=== PATIENT | male | born 1940 | race Caucasian/White ===

== ENCOUNTER 2016-10-02 07:20 | Day surgery (SDC) | payer OTHER, BC ==
[2016-09-30 14:05] VITALS: BMI 29.2
[2016-10-02 07:37] LABS: BASOPHIL 0.7 % (0-2.0); EOSINOPHIL 2.1 % (0-4.5); MCH 30.6 pg (25.7-33.7); MCHC 33.3 g/dl (32.0-35.9); MEAN CELL VOLUME 91.7 fl (80-96); MEAN PLT VOLUME 8.1 fl (7.5-11.1); NEUTROPHILS 73.9 % (42.8-82.8); PLATELET COUNT 153 K/MM3 (134-434); RDW 14.8 % (11.9-15.9); WHITE BLOOD COUNT 9.6 K/mm3 (4.0-10.0)
[2016-10-02 07:48] VITALS: TEMP 97.7
[2016-10-02 07:52] LABS: INR 1.01 (0.82-1.09); PROTHROMBIN TIME (PATIENT) 11.1 SEC (9.98-11.88)
[2016-10-02 14:03] VITALS: BP 147/80; PULSE 74
--- NOTE | 2016-10-03 17:13 | PATH ---
Surgical Pathology Report Patient Name: SANTI ORTEGA [facility]. Rec. #: [id number] /Age/Gender: 1940 (Age: 76) / M Account: [id number] Location: Taken: 10/02/2016 Received: 10/02/2016 Reported: 10/03/2016 Physicians: Eugene Osborne M.D. Specimen(s) Received LIVER BIOPSY Clinical History Hepatic steatosis, autoimmune hepatitis, lung cancer Final Diagnosis LIVER, BIOPSY: CHRONIC HEPATITIS CONSISTENT WITH AUTOIMMUNE HEPATITIS, MINIMAL ACTIVITY (GRADE 1 OF 4), AND PORTAL FIBROSIS (STAGE I OF 4). MILD MACROVESICULAR STEATOSIS PRESENT. TRICHROME STAIN HIGHLIGHTS AREAS OF PORTAL FIBROSIS. IRON STAIN IS NEGATIVE FOR SIDEROSIS. NEGATIVE FOR CHOLESTASIS, CHOLANGITIS/BILE DUCT INJURY, GRANULOMAS, OR MALIGNANCY. Comment: Sections reveal liver tissue with portal tracts containing an inflammatory infiltrate consisting of lymphocytes with scattered plasma cells and rare eosinophils. No definite interface hepatitis is identified. No lobular inflammation is identified. Additional clinical history provided by Dr. Haney includes a moderate to strong positive anti-smooth muscle antibody (41 with normal range 0-19), with a normal liver-kidney microsomal antibody, antimitochondrial antibody, LASHAUN, and serologic studies for hepatitis A, B, and C. Electronically Signed José Luis Dickerson M.D. Gross Description Received in formalin labeled "liver biopsy," are 4 walker, cylindrical portions of soft tissue ranging from 0.8-1.4 cm in length and averaging 0.1 cm in diameter. The specimens are submitted in toto in one cassette. 10/02/201610/02/2016
== END 2016-10-02 14:00 | disposition home or self-care (01) ==
LOC: JRADIR 07:20
PROVIDERS: ATTEND Radiology Diagnostic Radiology
PROC: BF25ZZZ Computerized Tomography (CT Scan) of Liver (ICD-10-PCS; principal; 2016-10-02)
PROC: 0FB03ZX Excision of Liver, Percutaneous Approach, Diagnostic (ICD-10-PCS; 2016-10-02)
DX: K73.8 Other chronic hepatitis, not elsewhere classified (principal); K74.0 Hepatic fibrosis; K76.0 Fatty (change of) liver, not elsewhere classified
CPT/HCPCS: 36415; 47000; 71010-TC; 85025; 85610; 88307-TC; 88313-TC

== ENCOUNTER 2017-07-21 11:53 | Inpatient (IN) | payer OTHER, BC ==
--- NOTE | 2017-07-21 13:22 | PDOC ---
History of Present Illness - General Chief Complaint: Wound Stated Complaint: LT TOE WOUND Time Seen by Provider: 07/21/17 13:22 - History of Present Illness Initial Comments: 07/21/17 13:40 Mr. Mantilla is a 77 yo male w/ pmh of HTN, HLD, prediabetes, COPD, autoimmune hepatits, AAA (repaired), and aortic root aneurysm who presents complaining of 4 day history of pain, warmth, and swelling of the 2nd toe on his left foot. Past History - Past Medical History Allergies/Adverse Reactions: Allergies Allergy/AdvReac Type Severity Reaction Status Date / Time Penicillins Allergy Severe "throat Verified 07/21/17 11:55 swells" sulfamethoxazole AdvReac Severe Verified 07/21/17 11:55 [From Bactrim] trimethoprim [From Bactrim] AdvReac Severe Verified 07/21/17 11:55 Home Medications: Ambulatory Orders Allopurinol [Zyloprim -] 300 mg PO DAILY 11/18/13 Amlodipine Besylate [Norvasc -] 5 mg PO DAILY 11/18/13 Aspirin Coated [Ecotrin -] 81 mg PO DAILY 11/18/13 Atorvastatin Ca [Lipitor] 10 mg PO ASDIR 11/18/13 Budesonide/Formeterol Fumarate [SYMBICORT 160/4.5mcg -] 2 inh PO BID 11/18/13 Captopril 100 mg PO BID 11/18/13 Folic Acid - 1 mg PO DAILY 11/18/13 Propranolol HCl [Inderal LA] 80 mg PO HS 11/18/13 Ranitidine [Zantac -] 300 mg PO HS 11/18/13 Tiotropium [place] [Spiriva] 1 inh PO DAILY 11/18/13 Valsartan [Diovan] 160 mg PO DAILY 11/18/13 [place]-3 Fatty Acids/Fish Oil [Fish Oil 1,000 mg Softgel] 1 each PO DAILY Psyllium Husk/Calcium Carb [Metamucil Plus Calcium Capsule] 5 each PO DAILY 10/09 Anemia: No Cancer: Yes (LUNGS) Cardiac Disorders: No CVA: No COPD: Yes (EMPHYSEMA) CHF: Yes (AORTIC ANUERYSM, BEING MONITORED) Dementia: No Diabetes: No GI Disorders: No Disorders: No HTN: Yes Hypercholesterolemia: No Liver Disease: Yes (AUTOIMMUNE HEPATITIS) Seizures: No Thyroid Disease: No - Surgical History Abdominal Surgery: Yes (HERNIA X 2, AAA REPAIR 12 YEARS AGO) Appendectomy: No Cardiac Surgery: No Cholecystectomy: No Lung Surgery: Yes (LEFT LUNG LOBECTOMY) Neurologic Surgery: No Orthopedic Surgery: No - Suicide/Smoking/Psychosocial Hx Smoking History: Former smoker Have you smoked in the past 12 months: No If you are a former smoker, when did you quit?: 2003 Information on smoking cessation initiated: No Hx Alcohol Use: Yes ([facility]) Drug/Substance Use Hx: No Substance Use Type: Alcohol Hx Substance Use Treatment: No Review of Systems - Review of Systems Comments:: 07/21/17 14:48 GENERAL/CONSTITUTIONAL: +Chills as described. No weakness. HEAD, EYES, EARS, NOSE AND THROAT: No change in vision. No ear pain or discharge. No sore throat. CARDIOVASCULAR: No chest pain or shortness of breath RESPIRATORY: No cough, wheezing, or hemoptysis. GASTROINTESTINAL: No nausea, vomiting, diarrhea or constipation. GENITOURINARY: No dysuria, frequency, or change in urination. MUSCULOSKELETAL: +Left foot pain at wound site. Inability to move left toe. Warmth and redness. SKIN: No rash NEUROLOGIC: No headache, vertigo, loss of consciousness, or change in strength/ sensation. ENDOCRINE: No increased thirst. No abnormal weight change HEMATOLOGIC/LYMPHATIC: No anemia, easy bleeding, or history of blood clots. ALLERGIC/IMMUNOLOGIC: No hives or skin allergy. *Physical Exam - Vital Signs Last Vital Signs Temp Pulse Resp BP Pulse Ox 98.1 F 80 18 138/79 100 07/21/17 11:55 07/21/17 11:55 07/21/17 11:55 07/21/17 11:55 07/21/17 11:55 - Physical Exam Comments: 07/21/17 14:49 GENERAL: Awake, alert, and fully oriented, in no acute distress HEAD: No signs of trauma, normocephalic, atraumatic EYES: PERRLA, EOMI, sclera anicteric, conjunctiva clear ENT: Auricles normal inspection, hearing grossly normal, nares patent, oropharynx clear without exudates. Moist mucosa NECK: Normal ROM, supple, no lymphadenopathy, JVD, or masses LUNGS: No distress, speaks full sentences, clear to auscultation bilaterally HEART: Regular rate and rhythm, normal S1 and S2, no murmurs, rubs or gallops, peripheral pulses normal and equal bilaterally. ABDOMEN: Soft, nontender, normoactive bowel sounds. No guarding, no rebound. No masses EXTREMITIES: +Abscess /wound noted to dorsum of left 2nd toe. Entire dorsum of foot erythematous, warm, swollen. Otherwise normal inspection, Normal range of motion. No clubbing or cyanosis. NEUROLOGICAL: Cranial nerves II through XII grossly intact. Normal speech, normal gait, no focal sensorimotor deficits SKIN: Warm, Dry, normal turgor, no rashes or lesions noted. ED Treatment Course - LABORATORY CBC & Chemistry Diagram: 07/21/17 14:10 07/21/17 14:10 Medical Decision Making - Medical Decision Making 07/21/17 14:42 Mr. Mantilla is a 77 yo male w/ pmh as described who presents for evaluation of signifcant 2nd left toe and foot infection. Labs concerning for WBC of 14.0, podiatry and ID consulted. Patient admitted to primary physician for further evaluation and care of infection. *DC/Admit/Observation/Transfer Diagnosis at time of Disposition: Cellulitis Qualifiers: Site of cellulitis: extremity Site of cellulitis of extremity: lower extremity Laterality: left Qualified Code(s): L03.116 - Cellulitis of left lower limb - Discharge Dispostion Decision to Admit order: Yes - Referrals - Patient Instructions - Post Discharge Activity
--- NOTE | 2017-07-21 13:43 | PDOC ---
Attending Attestation - Resident Resident Name: Ramirez Rich - HPI HPI: 07/21/17 15:46 Pt presents to the ED complaining of wound to the dorsum of his L second toe. Denies fever, nausea or vomiting. Denies severe pain. History of "pre diabetes". Wound has been present and worsening for the past week. - Physicial Exam PE: 07/21/17 15:48 agree with resident exam. Patient has erythema to the dorsum of the entire foot , along with a wound with purulent drainage at the pip joint. Minimal pain with passive ROM of the toe. - Medical Decision Making 07/21/17 15:50 PT presents to the ED with severe cellulitis of the foot. Will treat with IV clinda and admit to medicine. Will consult patient's senior technical manager and perform CT of the foot to evaluate for deep space infection.
[2017-07-21] MEDS ORDERED: CLINDAMYCIN 600MG PREMIX IVPB 600 MG/50 ML BAG IVPB ONE ×2 (13:51→14:06)
[2017-07-21 14:32] LABS: BASO % 0.7 % (0-2.0); EOS % 0.2 % (0-4.5); HEMATOCRIT 38.5 % (35.4-49); HEMOGLOBIN 13.2 GM/dL (11.7-16.9); LYMPH % 6.5 % (8-40); MCH 31.8 pg (25.7-33.7); MCHC 34.2 g/dl (32.0-35.9); MEAN CELL VOLUME 93.2 fl (80-96); MONO % 11.5 % (3.8-10.2); NEUT % 81.1 % (42.8-82.8); PLATELET COUNT 159 K/MM3 (134-434); RBC 4.14 M/mm3 (4.00-5.60); RDW 14.3 % (11.9-15.9)
[2017-07-21 14:54] LABS: ALBUMIN 2.9 g/dl (3.4-5.0); ANION GAP 9 (8-16); BLOOD UREA NITROGEN 12 mg/dL (7-18); CALCIUM 8.5 mg/dL (8.5-10.1); CHLORIDE 100 mmol/L (98-107); CO2 29 mmol/L (21-32); CREATININE 0.9 mg/dL (0.7-1.3); GLUCOSE,RANDOM 162 mg/dL (74-106); POTASSIUM 3.3 mmol/L (3.5-5.1); SGOT/AST 16 U/L (15-37); SGPT/ALT 32 U/L (12-78); SODIUM 138 mmol/L (136-145)
[2017-07-21 14:56] LABS: ALK PHOS 70 U/L (45-117); BILIRUBIN,TOTAL 1.1 mg/dL (0.2-1.0); TOT PROT 5.8 g/dl (6.4-8.2)
--- NOTE | 2017-07-21 15:59 | PN ---
Progress Note (short form) - Note Progress Note: ID Consult dictated Cellulitis L foot R/O L 2nd toe abscess/ osteomyelitis Major PCN allergy ? Sulfa allergy Await c/s Surgical evaluation CRP ESR MRI foot [facility] vancomycin/aztreonam/flagyl
[2017-07-21] MEDS ORDERED: POTASSIUM CHLORIDE TABS 20 MEQ TABLET.ER (FP) PO ONE (16:09)
--- NOTE | 2017-07-21 16:13 | HP ---
Admitting History and Physical - Primary Care Physician PCP: Saadia Jones - Admission History of Present Illness: Mr. Mantilla is a 77 yo male w/ pmh of HTN, HLD, prediabetes, COPD, autoimmune hepatits, AAA (repaired), and aortic root aneurysm who presents complaining of 4 day history of pain, warmth, and swelling of the 2nd toe on his left foot.per patient he has been soaking his second toe in warm water at home and he reports no fever at home in ER found to have WBC 14.0 and got iv clindamycin History Source: Patient - Past Medical History Cardiovascular: Yes: HTN, Hyperlipdemia Pulmonary: Yes: COPD Musculoskeletal: Yes: Osteoarthritis - Past Surgical History Past Surgical History: Yes: AAA Repair, Hernia Repair - Smoking History Smoking history: Former smoker Have you smoked in the past 12 months: No If you are a former smoker, when did you quit?: 2003 - Alcohol/Substance Use Hx Alcohol Use: Yes (OCC) - Social History ADL: Independent History of Recent Travel: No Home Medications - Allergies Allergies/Adverse Reactions: Allergies Allergy/AdvReac Type Severity Reaction Status Date / Time Penicillins Allergy Severe "throat Verified 07/21/17 11:55 swells" sulfamethoxazole AdvReac Severe Verified 07/21/17 11:55 [From Bactrim] trimethoprim [From Bactrim] AdvReac Severe Verified 07/21/17 11:55 - Home Medications Home Medications: Ambulatory Orders Allopurinol [Zyloprim -] 300 mg PO DAILY 11/18/13 Amlodipine Besylate [Norvasc -] 5 mg PO DAILY 11/18/13 Aspirin Coated [Ecotrin -] 81 mg PO DAILY 11/18/13 Atorvastatin Ca [Lipitor] 10 mg PO Q2D 11/18/13 Captopril 100 mg PO BID 11/18/13 Folic Acid - 1 mg PO DAILY 11/18/13 Propranolol HCl [Inderal LA] 80 mg PO HS 11/18/13 Ranitidine [Zantac -] 300 mg PO HS 11/18/13 Valsartan [Diovan] 160 mg PO BID 11/18/13 [place]-3 Fatty Acids/Fish Oil [Fish Oil 1,000 mg Softgel] 1 each PO DAILY Psyllium Husk/Calcium Carb [Metamucil Plus Calcium Capsule] 5 each PO DAILY 10/09 Budesonide [ENTOCORT EC (Nf) -] 9 mg PO DAILY 07/21/17 Umeclidinium Brm/Vilanterol Tr [Anoro Ellipta 62.5-25 Mcg INH] 1 each IH DAILY 07/21/17 Physical Examination Vital Signs: Vital Signs Temperature 98.1 F 07/21/17 11:55 Pulse Rate 80 07/21/17 11:55 Respiratory Rate 18 07/21/17 11:55 Blood Pressure 138/79 07/21/17 11:55 O2 Sat by Pulse Oximetry (%) 97 07/21/17 14:44 Constitutional: Yes: Calm Neck: Yes: Trachea Midline Cardiovascular: Yes: Regular Rate and Rhythm, S1, S2 Respiratory: Yes: CTA Bilaterally Gastrointestinal: Yes: Normal Bowel Sounds, Soft Extremities: Yes: Other (left foot erythematous warm tender to touch second toe macerated skin swollen) Edema: Yes Labs: CBC, BMP 07/21/17 14:10 07/21/17 14:10 Imaging - Results Cat Scan: Pending Assessment/Plan left foot /toe cellutlits pcn allergy iv abx per ID ctscan of LE dvt ppx esr,crp podiatry hypokalemia replete and recheck prediabetes check hgba1c HLD statin check lipid profile HTN Norvasc and diovan
[2017-07-21] MEDS: VANCOMYCIN 1 GM PREMIX - 1 GM/200 ML BAG IVPB SCH (16:25)
--- NOTE | 2017-07-21 17:08 | CONS ---
INFECTIOUS DISEASE CONSULTATION DATE OF CONSULTATION: 07/21/2017 The patient is a 77-year-old male who is evaluated for left foot infection. The patient states that he was well until approximately 3 days prior to admission. He was golfing. He states he has a chronic left 2nd toe hammertoe. He believes that the toe may have become irritated by repetitive movement in his golf shoes. He noted swelling and erythema of the left 2nd toe. He developed worsening pain, erythema, and swelling of the left toe and subsequently the entire left foot. He developed erythema, tracking to the dorsum of the foot and distal left lower extremity. He denies any associated fever or chills. He did not notice any purulent wound drainage. Patient states that he is a diet-controlled diabetic and denies prior history of foot infections. PAST MEDICAL HISTORY: Positive for COPD, a history of lung cancer status post left lung lobectomy, hypertension, hyperlipidemia, diet-controlled diabetes, auto-immune hepatitis. PAST SURGICAL HISTORY: Status post abdominal aortic aneurysm repair and aortic root repair. ALLERGIES: PENICILLIN and BACTRIM. With respect to PENICILLIN, reports developing tongue swelling many years ago. With respect to BACTRIM, he developed severe hyponatremia approximately 4 years ago after taking BACTRIM. No history of rash or anaphylaxis. MEDICATIONS: Include Zyloprim, Norvasc, Ecotrin, Lipitor, Symbicort, folic acid, Inderal, Zantac, Spiriva, Diovan. SOCIAL HISTORY: He is a former smoker, stopped in 2003. Lives at home with his significant other. SYSTEMS REVIEW: Neurologic: No loss of consciousness, seizure activity, focal weakness. Cardiac: Negative chest pain or palpitations. Respiratory: Negative cough or sputum production. Gastrointestinal: Negative vomiting or diarrhea. Genitourinary: Negative for urinary tract infection. LABORATORY DATA: White count 14.0; neutrophils 81, lymphocytes 6, monocytes 11; hematocrit 38.5; platelet count 159. Chemistries: BUN 12, creatinine 0.9, sodium 138, total bilirubin 1.1, alkaline phosphatase 70, AST 16. Blood and wound cultures are pending. CAT scan of the left foot has been ordered. PHYSICAL EXAMINATION: General: He is awake and alert on stretcher in the emergency room. He is in no acute distress. Vital Signs: Temperature 98.1; blood pressure 138/79; pulse 80, regular; respirations 18 per minute. HEENT: Sclerae are anicteric. Heart: Sounds S1, S2. Lungs: Clear. Abdomen: Obese, soft, nontender. Left Foot: There is gross swelling and deformity of the left 2nd toe with an ulceration present over the dorsal aspect of the toe. The toe is red and warm. There is erythema and swelling extending to the left great toe, dorsum of the foot, and proximal left lower extremity. IMPRESSION: 1. Cellulitis of the left foot. 2. Rule out left 2nd toe abscess/osteomyelitis. 3. Major PENICILLIN allergy. 4. Questionable SULFA allergy. Await culture results. Surgical evaluation. Obtain sedimentation rate, C-reactive protein, MRI of the foot to rule out abscess and/or osteomyelitis. Empiric antibiotic coverage in this patient with a major PENICILLIN allergy with vancomycin, Azactam, and Flagyl. Thank you for the kind referral. ZANDRA PURCELL M.D. [id number]
[2017-07-21] MEDS: AZTREONAM 1 GM in DEXTROSE 5%-WATER - 50 ML IVPB SCH (21:40)
[2017-07-21] MEDS ORDERED: HEPARIN NA (PORCINE) 5,000 UNITS/ML 1ML VIAL ONE (22:28)
[2017-07-21] MEDS: ATORVASTATIN CA 10 MG TABLET (FP) PO SCH (22:35)
[2017-07-21] MEDS: HEPARIN NA (PORCINE) 5,000 UNITS/ML 1ML VIAL SQ SCH (22:43)
[2017-07-22] MEDS: AZTREONAM 1 GM in DEXTROSE 5%-WATER - 50 ML IVPB SCH ×2 (02:34→10:22)
[2017-07-22] MEDS ORDERED: VANCOMYCIN 1 GRAM (PRE-DOCKED) 1,000 MG/250 ML BAG IVPB ONE (02:37)
[2017-07-22] MEDS: VANCOMYCIN 1 GM PREMIX - 1 GM/200 ML BAG IVPB SCH ×2 (04:07→11:01)
[2017-07-22 08:35] LABS: BASO % 0.3 % (0-2.0); EOS % 0.1 % (0-4.5); HEMATOCRIT 36.3 % (35.4-49); HEMOGLOBIN 12.5 GM/dL (11.7-16.9); LYMPH % 6.7 % (8-40); MCHC 34.5 g/dl (32.0-35.9); MEAN CELL VOLUME 92.9 fl (80-96); MEAN PLT VOLUME 8.4 fl (7.5-11.1); MONO % 10.3 % (3.8-10.2); NEUT % 82.6 % (42.8-82.8); PLATELET COUNT 157 K/MM3 (134-434); RDW 14.4 % (11.9-15.9); WHITE BLOOD COUNT 12.7 K/mm3 (4.0-10.0)
[2017-07-22 09:24] LABS: CHLORIDE 100 mmol/L (98-107); POTASSIUM 3.2 mmol/L (3.5-5.1); SODIUM 135 mmol/L (136-145)
--- NOTE | 2017-07-22 09:48 | EKG ---
Test Reason : Blood Pressure : / mmHG Vent. Rate : 071 BPM Atrial Rate : 071 BPM P-R Int : 152 ms QRS Dur : 132 ms QT Int : 414 ms P-R-T Axes : 022 -58 000 degrees QTc Int : 449 ms POOR DATA QUALITY, INTERPRETATION MAY BE ADVERSELY AFFECTED NORMAL SINUS RHYTHM RIGHT BUNDLE BRANCH BLOCK LEFT ANTERIOR FASCICULAR BLOCK BIFASCICULAR BLOCK ABNORMAL ECG WHEN COMPARED WITH ECG OF 18-NOV-2013 15:26, NO SIGNIFICANT CHANGE WAS FOUND Confirmed by JOSE CHAMBERLAIN, ISHAN ([id number]) on 07/22/2017 9:47:53 AM Referred By: Confirmed By:ISHAN GARCIA MD
[2017-07-22] MEDS ORDERED: amLODIPine BESYLATE 10 MG TABLET (FP) PO SCH (10:00)
[2017-07-22] MEDS ORDERED: VALSARTAN 160 MG TABLET (UD) PO SCH (10:00)
[2017-07-22 10:10] LABS: CHOLESTEROL 111 mg/dL (50-200); HDL CHOLESTEROL 40 mg/dL (40-60); TRIGLYCERIDES 73 mg/dL (35-160)
[2017-07-22 10:18] LABS: ALBUMIN 2.5 g/dl (3.4-5.0); ALK PHOS 75 U/L (45-117); ANION GAP 10 (8-16); BILIRUBIN,TOTAL 0.7 mg/dL (0.2-1.0); BLOOD UREA NITROGEN 16 mg/dL (7-18); CALCIUM 7.8 mg/dL (8.5-10.1); CO2 25 mmol/L (21-32); CREATININE 0.9 mg/dL (0.7-1.3); GLUCOSE,RANDOM 183 mg/dL (74-106); MAGNESIUM 1.8 mg/dL (1.8-2.4); PHOSPHOROUS 3.3 mg/dL (2.5-4.9); SGOT/AST 14 U/L (15-37); SGPT/ALT 26 U/L (12-78); TOT PROT 5.2 g/dl (6.4-8.2)
--- NOTE | 2017-07-22 10:19 | PN ---
Progress Note, Physician - Current Medication List Current Medications: Active Medications Allopurinol (Zyloprim -) 300 mg PO DAILY [facility] Amlodipine Besylate (Norvasc -) 10 mg PO DAILY [facility] Atorvastatin Calcium (Lipitor -) 10 mg PO HS [facility] Last Admin: 07/21/17 22:35 Dose: 10 mg Heparin Sodium (Porcine) (Heparin -) 5,000 unit SQ BID [facility] Last Admin: 07/21/17 22:43 Dose: 5,000 unit Vancomycin HCl (Vancomycin 1 Gm Premix -) 1 gm in 200 mls @ 133.333 mls/hr IVPB Q12H [facility]; Protocol Last Admin: 07/22/17 04:07 Dose: 133.333 mls/hr Aztreonam 1 gm/ Dextrose 50 mls @ 100 mls/hr IVPB Q8H-IV [facility]; Protocol Last Admin: 07/22/17 02:34 Dose: 100 mls/hr Metronidazole (Flagyl 500mg Premixed Ivpb -) 500 mg in 100 mls @ 100 mls/hr IVPB Q8H-IV [facility] Last Admin: 07/22/17 02:19 Dose: 100 mls/hr Valsartan (Diovan -) 160 mg PO DAILY [facility] - Objective Vital Signs: Vital Signs Temperature 98.5 F 07/22/17 06:31 Pulse Rate 74 07/22/17 06:31 Respiratory Rate 18 07/22/17 06:31 Blood Pressure 139/68 07/22/17 06:31 O2 Sat by Pulse Oximetry (%) 100 07/22/17 03:05 Cardiovascular: Yes: S1, S2 Respiratory: Yes: Regular, CTA Bilaterally Gastrointestinal: Yes: Normal Bowel Sounds, Soft Extremities: Yes: Erythema Edema: Yes Labs: CBC, BMP 07/22/17 06:27 07/22/17 06:27 Problem List - Problems (1) Cellulitis Assessment/Plan: -with ulcer -vascular -mri -ct noted--iv abx -id on case Code(s): L03.90 - CELLULITIS, UNSPECIFIED Qualifiers: Site of cellulitis: extremity Site of cellulitis of extremity: lower extremity Laterality: left Qualified Code(s): L03.116 - Cellulitis of left lower limb (2) Edema Assessment/Plan: -dc norvasc -lasix x 1 -duplex Code(s): R60.9 - EDEMA, UNSPECIFIED (3) COPD (chronic obstructive pulmonary disease) Assessment/Plan: nebs Code(s): J44.9 - CHRONIC OBSTRUCTIVE PULMONARY DISEASE, UNSPECIFIED (4) HTN (hypertension) Assessment/Plan: continue with home meds--hold amlodipine Code(s): I10 - ESSENTIAL (PRIMARY) HYPERTENSION
[2017-07-22] MEDS ORDERED: FUROSEMIDE 40 MG/4 ML INJECTABLE VIAL IVPUSH ONE (10:23)
[2017-07-22] MEDS: ALLOPURINOL 300 MG TABLET (FP) PO SCH (10:23)
[2017-07-22] MEDS: HEPARIN NA (PORCINE) 5,000 UNITS/ML 1ML VIAL SQ SCH ×2 (10:30→21:52)
[2017-07-22] MEDS ORDERED: FUROSEMIDE 40 MG/4 ML INJECTABLE VIAL ONE (14:48)
--- NOTE | 2017-07-22 18:37 | CONSULT ---
Consult Consult Specialty:: Podiatry Reason for Consultation:: Blister with cellulitis left foot - History of Present Illness Chief Complaint: 77 yo male admitted for infected blister left foot History of Present Illness: Patient states he went golfing on for 4 hours and when he came home he noticed blister formation on the 2nd toe which got worse as the days progress. Patient went to the ER last night and was admitted. - Past Medical History Cardio/Vascular: Yes: HTN, Hyperlipdemia Pulmonary: Yes: COPD Musculoskeletal: Yes: Osteoarthritis Dermatology: Yes: Cellulitis (Left 2nd toe and foot) - Past Surgical History Past Surgical History: Yes: AAA Repair, Hernia Repair - Alcohol/Substance Use Hx Alcohol Use: Yes (OCC) - Smoking History Smoking history: Never smoked Have you smoked in the past 12 months: No If you are a former smoker, when did you quit?: 2003 - Social History ADL: Independent History of Recent Travel: No Home Medications - Allergies Allergies/Adverse Reactions: Allergies Allergy/AdvReac Type Severity Reaction Status Date / Time Penicillins Allergy Severe "throat Verified 07/21/17 11:55 swells" sulfamethoxazole AdvReac Severe Verified 07/21/17 11:55 [From Bactrim] trimethoprim [From Bactrim] AdvReac Severe Verified 07/21/17 11:55 - Home Medications Home Medications: Ambulatory Orders Allopurinol [Zyloprim -] 300 mg PO DAILY 11/18/13 Amlodipine Besylate [Norvasc -] 5 mg PO DAILY 11/18/13 Aspirin Coated [Ecotrin -] 81 mg PO DAILY 11/18/13 Atorvastatin Ca [Lipitor] 10 mg PO Q2D 11/18/13 Captopril 100 mg PO BID 11/18/13 Folic Acid - 1 mg PO DAILY 11/18/13 Propranolol HCl [Inderal LA] 80 mg PO HS 11/18/13 Ranitidine [Zantac -] 300 mg PO HS 11/18/13 Valsartan [Diovan] 160 mg PO BID 11/18/13 [place]-3 Fatty Acids/Fish Oil [Fish Oil 1,000 mg Softgel] 1 each PO DAILY Psyllium Husk/Calcium Carb [Metamucil Plus Calcium Capsule] 5 each PO DAILY 10/09 Budesonide [ENTOCORT EC (Nf) -] 9 mg PO DAILY 07/21/17 Umeclidinium Brm/Vilanterol Tr [Anoro Ellipta 62.5-25 Mcg INH] 1 each IH DAILY 07/21/17 Review of Systems - Review of Systems Musculoskeletal: reports: Other (2nd toe edema left foot) Integumentary: reports: Blister (open blister 2nd toe) Physical Exam Vital Signs: Vital Signs Temperature 98.5 F 07/22/17 06:31 Pulse Rate 74 07/22/17 06:31 Respiratory Rate 18 07/22/17 06:31 Blood Pressure 139/68 07/22/17 06:31 O2 Sat by Pulse Oximetry (%) 100 07/22/17 03:05 Musculoskeletal: Yes: Other (2nd digit left hammertoe with intact hyperkeratotic lesion PIPJ level.) Edema: LLE: 1+, RLE: Trace Peripheral Pulses WNL: Yes Integumentary: Yes: Other (cellulitis 2nd toe left foot with abscess formation medial aspect of 1st interspace. Ruptured blister noted with sloughinh. small exudate expressed upon compression. There is no tunneling or pocket noted. There is no malodor. There is no pain on compression) Labs: CBC, BMP 07/22/17 06:27 07/22/17 06:27 Imaging - Results Cat Scan: Report Reviewed Other: Pending, Report Reviewed (Vascular studies reviewed.) Problem List - Problems (1) Infected blister of second toe of left foot Code(s): S90.425A - BLISTER (NONTHERMAL), LEFT LESSER TOE(S), INITIAL ENCOUNTER ; L08.9 - LOCAL INFECTION OF THE SKIN AND SUBCUTANEOUS TISSUE, UNSP Qualifiers: Encounter type: initial encounter Qualified Code(s): S90.425A - Blister ( nonthermal), left lesser toe(s), initial encounter; L08.9 - Local infection of the skin and subcutaneous tissue, unspecified (2) Cellulitis Code(s): L03.90 - CELLULITIS, UNSPECIFIED Qualifiers: Site of cellulitis: extremity Site of cellulitis of extremity: lower extremity Laterality: left Qualified Code(s): L03.116 - Cellulitis of left lower limb (3) Edema Code(s): R60.9 - EDEMA, UNSPECIFIED Qualifiers: Edema type: localized Qualified Code(s): R60.0 - Localized edema Assessment/Plan 1) Irrigated 2nd toe with betadine and saline mixture 2) repeat C & S on 2nd toe site of abscess. Probed area. No pocket or tunneling noted 3) bid wet to dry dressing with saline and betadine mixture ( appox 4:1 ratio) 4) Ordered post-op shoe 5) awaiting MRI studies 6) leg elevation with rom exercises prn as tolerated
[2017-07-22] MEDS: RANITIDINE HCL 150 MG TABLET (FP) PO SCH (21:52)
[2017-07-22] MEDS: VALSARTAN 160 MG TABLET (UD) PO SCH (21:52)
[2017-07-22] MEDS: ATORVASTATIN CA 10 MG TABLET (FP) PO SCH (21:52)
[2017-07-23] MEDS: AZTREONAM 1 GM in DEXTROSE 5%-WATER - 50 ML IVPB SCH ×5 (03:07→18:50)
[2017-07-23] MEDS: VANCOMYCIN 1 GM PREMIX - 1 GM/200 ML BAG IVPB SCH ×2 (06:30→17:57)
[2017-07-23 07:06] LABS: BASO % 0.6 % (0-2.0); EOS % 0.7 % (0-4.5); HEMOGLOBIN 12.7 GM/dL (11.7-16.9); LYMPH % 11.5 % (8-40); MCHC 35.4 g/dl (32.0-35.9); MEAN CELL VOLUME 93.3 fl (80-96); MEAN PLT VOLUME 8.2 fl (7.5-11.1); MONO % 10.3 % (3.8-10.2); NEUT % 76.9 % (42.8-82.8); PLATELET COUNT 168 K/MM3 (134-434); RBC 3.86 M/mm3 (4.00-5.60); RDW 14.1 % (11.9-15.9); WHITE BLOOD COUNT 9.6 K/mm3 (4.0-10.0)
[2017-07-23 07:09] LABS: CHLORIDE 102 mmol/L (98-107); SODIUM 137 mmol/L (136-145)
[2017-07-23 07:14] LABS: ALBUMIN 2.3 g/dl (3.4-5.0); ALK PHOS 61 U/L (45-117); ANION GAP 7 (8-16); BILIRUBIN,TOTAL 0.6 mg/dL (0.2-1.0); CALCIUM 7.7 mg/dL (8.5-10.1); CO2 28 mmol/L (21-32); CREATININE 0.8 mg/dL (0.7-1.3); GLUCOSE,RANDOM 157 mg/dL (74-106); SGOT/AST 13 U/L (15-37); SGPT/ALT 26 U/L (12-78)
[2017-07-23 07:29] LABS: BLOOD UREA NITROGEN 15 mg/dL (7-18)
--- NOTE | 2017-07-23 10:37 | PN ---
Progress Note, Physician History of Present Illness: No c/o foot pain No fever/ chills Tolearting antibiotics. No adverse rxn Wound c/s S. aureus final identification pending - Current Medication List Current Medications: Active Medications Allopurinol (Zyloprim -) 300 mg PO DAILY [facility] Last Admin: 07/22/17 10:23 Dose: 300 mg Atorvastatin Calcium (Lipitor -) 10 mg PO HS [facility] Last Admin: 07/22/17 21:52 Dose: 10 mg Heparin Sodium (Porcine) (Heparin -) 5,000 unit SQ BID [facility] Last Admin: 07/22/17 21:52 Dose: 5,000 unit Vancomycin HCl (Vancomycin 1 Gm Premix -) 1 gm in 200 mls @ 133.333 mls/hr IVPB Q12H [facility]; Protocol Last Admin: 07/23/17 06:30 Dose: 133.333 mls/hr Aztreonam 1 gm/ Dextrose 50 mls @ 100 mls/hr IVPB Q8H-IV [facility]; Protocol Last Admin: 07/23/17 08:40 Dose: Not Given Metronidazole (Flagyl 500mg Premixed Ivpb -) 500 mg in 100 mls @ 100 mls/hr IVPB Q8H-IV [facility] Last Admin: 07/23/17 01:36 Dose: 100 mls/hr Non-Formulary Medication (Captopril [Captopril]) 100 mg PO BID [facility] Propranolol HCl (Inderal La -) 80 mg PO [facility] Last Admin: 07/22/17 21:52 Dose: 80 mg Ranitidine HCl (Zantac -) 300 mg PO [facility] Last Admin: 07/22/17 21:52 Dose: 300 mg Valsartan (Diovan -) 160 mg PO BID [facility] Last Admin: 07/22/17 21:52 Dose: 160 mg - Objective Vital Signs: Vital Signs Temperature 98.6 F 07/23/17 06:00 Pulse Rate 73 07/23/17 06:00 Respiratory Rate 18 07/23/17 07:00 Blood Pressure 133/70 07/23/17 06:00 O2 Sat by Pulse Oximetry (%) 95 07/23/17 07:00 Constitutional: Yes: No Distress Eyes: Yes: Conjunctiva Clear Cardiovascular: Yes: Regular Rate and Rhythm, S1, S2 Respiratory: Yes: CTA Bilaterally Gastrointestinal: Yes: Normal Bowel Sounds, Soft, Abdomen, Obese. No: Tenderness Extremities: Yes: Other (decreased L foot swelling/ erythema, 2nd toe remains diffusely swollen. + drainage) Labs: CBC, BMP 07/23/17 06:20 07/23/17 06:20 Assessment/Plan Cellulitis L foot ? osteomyelitis 2nd toe Major PCN allergy Await c/s Surgical follow up Continue empiric vancomycin/ aztreonam/ flagyl Local wound care
--- NOTE | 2017-07-23 10:47 | PN ---
Progress Note (short form) - Note Progress Note: Vascular Surgery Pt seen and examined. Osteo left second toe with cellulitis. Toe is draining, with infection. Pt with palpable PT pulse. Faint DP pulse due to swelling. pt has history of smoking for over 50 years. Called podiatry to evaluate for amputation. Jacques Gross DO
--- NOTE | 2017-07-23 10:50 | CONSULT ---
Consult - text type - Consultation Consultation Note: Podiatry: Pleasant 77 year old DM M sent by his regular pharmacognosist for L 2nd digit ulcer, osteo, cellulitis. Patient seen by pharmacognosist this week and wound has deteriorated. Denies F/V/N/C/SOB/CP. Afebrile. Came in with leukocytosis. VANGIE: L foot: pedal pulses weakly palpable, TG warm-warmer, CFT absent to 2nd digit. L 2nd digit ulcer probing to bone, (+) purulence, (++) ascending cellulitis to pretibial, no soft tissue crepitus. WBC: 9.6 ESR: 63 L foot XR: results pending Imp: 77 year old DM M with L 2nd digit ulcer, osteomyelitis, cellulitis 1. IV abx 2. NPO now 3. Plan for OR tonight for 2nd digit amputation Yu Iraheta DPM
--- NOTE | 2017-07-23 11:03 | PN ---
Progress Note (short form) - Note Progress Note: F/u left foot cellulitis. Foot more edematous and erythematous when compared to yesterday. 2nd toe digit discharge present. There is no pain on palpation. No malodor. Reviewed labs. Spoke with Dr. Gross. Concur with decision to amputate 2nd digit . Met with Dr. Iraheta and discussed issue with patient. Pre-op orders initiated for surgery tonight by Dr. Iraheta. Problem List - Problems (1) Infected blister of second toe of left foot Code(s): S90.425A - BLISTER (NONTHERMAL), LEFT LESSER TOE(S), INITIAL ENCOUNTER ; L08.9 - LOCAL INFECTION OF THE SKIN AND SUBCUTANEOUS TISSUE, UNSP Qualifiers: Encounter type: initial encounter Qualified Code(s): S90.425A - Blister ( nonthermal), left lesser toe(s), initial encounter; L08.9 - Local infection of the skin and subcutaneous tissue, unspecified (2) Cellulitis Code(s): L03.90 - CELLULITIS, UNSPECIFIED Qualifiers: Site of cellulitis: extremity Site of cellulitis of extremity: lower extremity Laterality: left Qualified Code(s): L03.116 - Cellulitis of left lower limb (3) Edema Code(s): R60.9 - EDEMA, UNSPECIFIED Qualifiers: Edema type: localized Qualified Code(s): R60.0 - Localized edema
[2017-07-23] MEDS: HEPARIN NA (PORCINE) 5,000 UNITS/ML 1ML VIAL SQ SCH ×2 (11:19→21:12)
[2017-07-23] MEDS: VALSARTAN 160 MG TABLET (UD) PO SCH ×2 (11:21→21:11)
[2017-07-23] MEDS: ALLOPURINOL 300 MG TABLET (FP) PO SCH (11:31)
[2017-07-23] MEDS ORDERED: POTASSIUM CHLORIDE TABS 20 MEQ TABLET.ER (FP) PO ONE (13:37)
[2017-07-23] MEDS ORDERED: FUROSEMIDE 40 MG/4 ML INJECTABLE VIAL IVPUSH ONE (13:41)
--- NOTE | 2017-07-23 13:42 | PN ---
Progress Note, Physician Chief Complaint: patient seen and examined awating to go to OR on iv abx for left foot cellulitits - Current Medication List Current Medications: Active Medications Allopurinol (Zyloprim -) 300 mg PO DAILY [facility] Last Admin: 07/23/17 11:31 Dose: Not Given Atorvastatin Calcium (Lipitor -) 10 mg PO HS [facility] Last Admin: 07/22/17 21:52 Dose: 10 mg Heparin Sodium (Porcine) (Heparin -) 5,000 unit SQ BID [facility] Last Admin: 07/23/17 11:19 Dose: Not Given Vancomycin HCl (Vancomycin 1 Gm Premix -) 1 gm in 200 mls @ 133.333 mls/hr IVPB Q12H [facility]; Protocol Last Admin: 07/23/17 06:30 Dose: 133.333 mls/hr Aztreonam 1 gm/ Dextrose 50 mls @ 100 mls/hr IVPB Q8H-IV [facility]; Protocol Last Admin: 07/23/17 11:20 Dose: 100 mls/hr Metronidazole (Flagyl 500mg Premixed Ivpb -) 500 mg in 100 mls @ 100 mls/hr IVPB Q8H-IV [facility] Last Admin: 07/23/17 11:20 Dose: 100 mls/hr Non-Formulary Medication (Captopril [Captopril]) 100 mg PO BID [facility] Potassium Chloride (K-Dur -) 40 meq PO ONCE ONE Stop: 07/23/17 13:38 Propranolol HCl (Inderal La -) 80 mg PO [facility] Last Admin: 07/22/17 21:52 Dose: 80 mg Ranitidine HCl (Zantac -) 300 mg PO [facility] Last Admin: 07/22/17 21:52 Dose: 300 mg Valsartan (Diovan -) 160 mg PO BID [facility] Last Admin: 07/23/17 11:21 Dose: 160 mg - Objective Vital Signs: Vital Signs Temperature 98.6 F 07/23/17 06:00 Pulse Rate 73 07/23/17 06:00 Respiratory Rate 18 07/23/17 07:00 Blood Pressure 133/70 07/23/17 06:00 O2 Sat by Pulse Oximetry (%) 95 07/23/17 07:00 Constitutional: Yes: Calm Neck: Yes: Trachea Midline Cardiovascular: Yes: Regular Rate and Rhythm Respiratory: Yes: CTA Bilaterally Gastrointestinal: Yes: Normal Bowel Sounds, Soft Extremities: Yes: Other (left foot second toe swolen macerated skin) Edema: Yes Neurological: Yes: Alert, Oriented Labs: CBC, BMP 07/23/17 06:20 07/23/17 06:20 Problem List - Problems (1) Hypokalemia Assessment/Plan: repleted recheck in [place] today Code(s): E87.6 - HYPOKALEMIA (2) Cellulitis Assessment/Plan: iv abx per ID Code(s): L03.90 - CELLULITIS, UNSPECIFIED Qualifiers: Site of cellulitis: extremity Site of cellulitis of extremity: lower extremity Laterality: left Qualified Code(s): L03.116 - Cellulitis of left lower limb (3) Edema Assessment/Plan: furosemide doppler negative for DVT Code(s): R60.9 - EDEMA, UNSPECIFIED Qualifiers: Edema type: localized Qualified Code(s): R60.0 - Localized edema
[2017-07-23 14:36] LABS: URINE APPEARANCE CLEAR; URINE BILIRUBIN NEGATIVE (<2.0 mg/dL); URINE BLOOD NEGATIVE (NEGATIVE); URINE COLOR YELLOW; URINE GLUCOSE (UA) NEGATIVE (NEGATIVE); URINE KETONE NEGATIVE (NEGATIVE); URINE LEUK ESTERASE NEGATIVE (NEGATIVE); URINE NITRITE NEGATIVE (NEGATIVE); URINE PROTEIN NEGATIVE (NEGATIVE); URINE UROBILINOGEN NEGATIVE mg/dL (0.2-1.0)
[2017-07-23] MEDS ORDERED: MIDAZOLAM HCL 2 MG/2 ML SINGLE DOSE VIAL ONE (16:41)
[2017-07-23] MEDS ORDERED: PROPOFOL 20 ML ONE (16:41)
[2017-07-23] MEDS ORDERED: ONDANSETRON 4 MG/2 ML VIAL IVPUSH PRN (17:01)
[2017-07-23] MEDS ORDERED: LIDOCAINE 1%/EPI 1:100000 (20 ML MULTI DOSE VIAL) ONE (17:08)
[2017-07-23] MEDS ORDERED: LIDOCAINE HCL 2% (20ML MULTI-DOSE VIAL) NR ONE (17:08)
--- NOTE | 2017-07-23 17:17 | PN ---
Progress Note (short form) - Note Progress Note: PT seen in OR holding area with family present for Incision and Drainage and amputation 2nd digit left foot Discussed procedure in detail with pt and family Consent obtained Discussed risks benefits alternatives as well as possible complications of surgery Pt and family understand
[2017-07-23 17:27] LABS: ANION GAP 11 (8-16); BLOOD UREA NITROGEN 15 mg/dL (7-18); CALCIUM 8.1 mg/dL (8.5-10.1); CHLORIDE 103 mmol/L (98-107); CO2 25 mmol/L (21-32); CREATININE 0.9 mg/dL (0.7-1.3); GLUCOSE,RANDOM 140 mg/dL (74-106); POTASSIUM 3.4 mmol/L (3.5-5.1); SODIUM 139 mmol/L (136-145)
[2017-07-23] MEDS ORDERED: KETOROLAC TROMETHAMINE 30 MG/1 ML VIAL ONE (17:31)
[2017-07-23] MEDS ORDERED: ePHEDrine SULFATE 50 MG/1 ML AMPULE ONE (17:45)
[2017-07-23] MEDS: LACTATED RINGERS SOLUTION 1,000 ML IV SCH ×2 (17:57→18:58)
--- NOTE | 2017-07-23 18:17 | OP ---
Operative Note - Note: Operative Date: 07/23/17 Pre-Operative Diagnosis: osteomyelitis 2nd digit left foot Operation: Amputation 2nd digit left foot with Incision and Drainage Post-Operative Diagnosis: Same as Pre-op Surgeon: Gabe Knutson Anesthesia: General Specimens Removed: bone/ soft tissue
[2017-07-23] MEDS ORDERED: oxyCODONE HCL 5 MG TABLET PO PRN (18:19)
[2017-07-23] MEDS ORDERED: PT OWN MED DRAWER 7, Y5N ONE ×2 (18:47→19:00)
--- NOTE | 2017-07-23 19:41 | OP ---
DATE OF OPERATION: 07/23/2017 SURGEON: Gabe Gupta DPM ANESTHESIA: General endotracheal anesthesia. PREOPERATIVE DIAGNOSIS: Osteomyelitis second digit with underlying abscess. POSTOPERATIVE DIAGNOSIS: Osteomyelitis second digit with underlying abscess. PROCEDURE: Amputation second digit left foot with incision and drainage left foot. DESCRIPTION OF PROCEDURE: Patient identified as patient, brought to the operating room and placed on the table in supine position. No tourniquet was utilized during this procedure. The left foot and leg are prepped and draped in the usual sterile manner utilizing aseptic technique. Attention was then direct to the left foot, where a 3-cm tennis racket incision was made over the dorsal aspect. The incision was deepened via sharp and blunt dissection, taking careful attention to all neurovascular structures encountered. The incision was deepened to the level of the second MPJ, which was disarticulated at this time and sent to pathology for evaluation. The second metatarsal head was then resected using sagittal saw and sent to pathology for evaluation for bone biopsy. Wound was then copiously flushed with sterile saline. The plantar aspect of the foot was noted to have a plantar abscess, which was incised and drained, and a soft tissue culture was performed. The wound was then debrided of all devitalized and necrotic tissue. After the wound was then copiously flushed with sterile saline, it was gently packed with 1/4-inch iodoform gauze, and skin was loosely reapproximated with 3-0 nylon with retention sutures. The wound was then dressed in Xeroform, gauze, 4x4s, Pearl, and Jered wrap. The ankle tourniquet was deflated entire left foot. The patient was noted to tolerate the procedure, anesthesia well, left the operating room with vital signs stable and neurovascularly intact. GABE GUPTA DPM [id number]
[2017-07-23] MEDS: ATORVASTATIN CA 10 MG TABLET (FP) PO SCH (21:11)
[2017-07-23] MEDS: RANITIDINE HCL 150 MG TABLET (FP) PO SCH (21:11)
[2017-07-24] MEDS ORDERED: PT OWN MED DRAWER 7, Y5N ONE ×5 (00:36→17:28)
[2017-07-24] MEDS: AZTREONAM 1 GM in DEXTROSE 5%-WATER - 50 ML IVPB SCH ×3 (01:32→17:54)
[2017-07-24] MEDS: VANCOMYCIN 1 GM PREMIX - 1 GM/200 ML BAG IVPB SCH ×2 (04:21→16:33)
--- NOTE | 2017-07-24 08:21 | PN ---
Progress Note (short form) - Note Progress Note: Post op day#1.S/P Left 2d toe amputation under GA uneventful.Patient stable.No any anesthesia related problem.Patient DC from the anesthesia care.
--- NOTE | 2017-07-24 08:26 | PN ---
Progress Note, Physician - Current Medication List Current Medications: Active Medications Allopurinol (Zyloprim -) 300 mg PO DAILY [facility] Last Admin: 07/23/17 11:31 Dose: Not Given Atorvastatin Calcium (Lipitor -) 10 mg PO HS [facility] Last Admin: 07/23/17 21:11 Dose: 10 mg Fentanyl (Sublimaze Injection -) 25 mcg IVPUSH [id number] PRN PRN Reason: PAIN-PACU ORDER X 4 DOSES ONLY Heparin Sodium (Porcine) (Heparin -) 5,000 unit SQ BID [facility] Last Admin: 07/23/17 21:12 Dose: 5,000 unit Vancomycin HCl (Vancomycin 1 Gm Premix -) 1 gm in 200 mls @ 133.333 mls/hr IVPB Q12H [facility]; Protocol Last Admin: 07/24/17 04:21 Dose: 133.333 mls/hr Aztreonam 1 gm/ Dextrose 50 mls @ 100 mls/hr IVPB Q8H-IV [facility]; Protocol Last Admin: 07/24/17 01:32 Dose: 100 mls/hr Metronidazole (Flagyl 500mg Premixed Ivpb -) 500 mg in 100 mls @ 100 mls/hr IVPB Q8H-IV [facility] Last Admin: 07/24/17 02:40 Dose: 100 mls/hr Lactated Ringer's (Lactated Ringers Solution) 1,000 mls @ 75 mls/hr IV ASDIR [facility] Last Admin: 07/23/17 18:58 Dose: 0 mls Non-Formulary Medication (Captopril [Captopril]) 100 mg PO BID [facility] Ondansetron HCl (Zofran Injection) 4 mg IVPUSH Q6H PRN PRN Reason: NAUSEA AND/OR VOMITING Oxycodone HCl (Roxicodone -) 5 mg PO Q4H PRN PRN Reason: PAIN LEVEL 1-5 Propranolol HCl (Inderal La -) 80 mg PO HS [facility] Last Admin: 07/23/17 21:11 Dose: 80 mg Ranitidine HCl (Zantac -) 300 mg PO HS [facility] Last Admin: 07/23/17 21:11 Dose: 300 mg Valsartan (Diovan -) 160 mg PO BID [facility] Last Admin: 07/23/17 21:11 Dose: 160 mg - Objective Vital Signs: Vital Signs Temperature 98.1 F 07/24/17 06:00 Pulse Rate 67 07/24/17 06:00 Respiratory Rate 20 07/24/17 06:00 Blood Pressure 127/67 07/24/17 06:00 O2 Sat by Pulse Oximetry (%) 96 07/23/17 23:00 Labs: CBC, BMP 07/23/17 06:20 07/23/17 15:15 Problem List - Problems (1) Cellulitis Assessment/Plan: -with ulcer - Note: Operative Date: 07/23/17 Pre-Operative Diagnosis: osteomyelitis 2nd digit left foot Operation: Amputation 2nd digit left foot with Incision and Drainage Post-Operative Diagnosis: Same as Pre-op Surgeon: Gabe Knutson -vascular noted -ct noted--iv abx -id on case Code(s): L03.90 - CELLULITIS, UNSPECIFIED Qualifiers: Site of cellulitis: extremity Site of cellulitis of extremity: lower extremity Laterality: left Qualified Code(s): L03.116 - Cellulitis of left lower limb (2) Edema Assessment/Plan: -dc norvasc -lasix x 1 -duplex Code(s): R60.9 - EDEMA, UNSPECIFIED Qualifiers: Edema type: localized Qualified Code(s): R60.0 - Localized edema (3) COPD (chronic obstructive pulmonary disease) Assessment/Plan: nebs Code(s): J44.9 - CHRONIC OBSTRUCTIVE PULMONARY DISEASE, UNSPECIFIED (4) HTN (hypertension) Assessment/Plan: continue with home meds--hold amlodipine Code(s): I10 - ESSENTIAL (PRIMARY) HYPERTENSION
--- NOTE | 2017-07-24 09:41 | PN ---
Progress Note (short form) - Note Progress Note: POD # 1 S/P amputation 2nd digit left foot with Incision and Drainage left foot No complaints No pain Wound well coapted Edema and erythema decreased Ascending cellulitis decreased Packing in place Impression: Satisfactory healing Plan: Packing pulled Sterile dressing change Bone biopsy and cultures pending Vascular input appreciated
[2017-07-24] MEDS: VALSARTAN 160 MG TABLET (UD) PO SCH ×2 (10:20→21:47)
[2017-07-24] MEDS: HEPARIN NA (PORCINE) 5,000 UNITS/ML 1ML VIAL SQ SCH ×2 (10:20→21:47)
[2017-07-24] MEDS: ALLOPURINOL 300 MG TABLET (FP) PO SCH (10:20)
[2017-07-24] MEDS: LACTATED RINGERS SOLUTION 1,000 ML IV SCH (12:57)
--- NOTE | 2017-07-24 17:15 | PN ---
Progress Note, Physician History of Present Illness: S/P amputation of toe. Episode of bleeding this am No c/o foot pain No fever/ chills Tolerating antibiotics. No adverse rxn Wound c/s S. aureus final identification pending - Current Medication List Current Medications: Active Medications Allopurinol (Zyloprim -) 300 mg PO DAILY [facility] Last Admin: 07/24/17 10:20 Dose: 300 mg Atorvastatin Calcium (Lipitor -) 10 mg PO HS [facility] Last Admin: 07/23/17 21:11 Dose: 10 mg Budesonide/Formoterol Fumarate (Symbicort 160/4.5mcg -) 2 puff IH BID [facility] Fentanyl (Sublimaze Injection -) 25 mcg IVPUSH [id number] PRN PRN Reason: PAIN-PACU ORDER X 4 DOSES ONLY Heparin Sodium (Porcine) (Heparin -) 5,000 unit SQ BID [facility] Last Admin: 07/24/17 10:20 Dose: 5,000 unit Vancomycin HCl (Vancomycin 1 Gm Premix -) 1 gm in 200 mls @ 133.333 mls/hr IVPB Q12H [facility]; Protocol Last Admin: 07/24/17 16:33 Dose: 133.333 mls/hr Aztreonam 1 gm/ Dextrose 50 mls @ 100 mls/hr IVPB Q8H-IV [facility]; Protocol Last Admin: 07/24/17 10:20 Dose: 100 mls/hr Metronidazole (Flagyl 500mg Premixed Ivpb -) 500 mg in 100 mls @ 100 mls/hr IVPB Q8H-IV [facility] Last Admin: 07/24/17 11:14 Dose: 100 mls/hr Lactated Ringer's (Lactated Ringers Solution) 1,000 mls @ 75 mls/hr IV ASDIR [facility] Last Admin: 07/24/17 12:57 Dose: 75 mls/hr Non-Formulary Medication (Captopril [Captopril]) 100 mg PO BID [facility] Ondansetron HCl (Zofran Injection) 4 mg IVPUSH Q6H PRN PRN Reason: NAUSEA AND/OR VOMITING Oxycodone HCl (Roxicodone -) 5 mg PO Q4H PRN PRN Reason: PAIN LEVEL 1-5 Propranolol HCl (Inderal La -) 80 mg PO [facility] Last Admin: 07/23/17 21:11 Dose: 80 mg Ranitidine HCl (Zantac -) 300 mg PO [facility] Last Admin: 07/23/17 21:11 Dose: 300 mg Valsartan (Diovan -) 160 mg PO BID [facility] Last Admin: 07/24/17 10:20 Dose: 160 mg - Objective Vital Signs: Vital Signs Temperature 99.6 F 07/24/17 16:15 Pulse Rate 75 07/24/17 16:15 Respiratory Rate 20 07/24/17 16:15 Blood Pressure 128/90 07/24/17 16:15 O2 Sat by Pulse Oximetry (%) 98 07/24/17 09:00 Constitutional: Yes: No Distress Eyes: Yes: Conjunctiva Clear Cardiovascular: Yes: Regular Rate and Rhythm, S1, S2 Respiratory: Yes: CTA Bilaterally Gastrointestinal: Yes: Normal Bowel Sounds, Soft. No: Tenderness Extremities: Yes: Other (surgical dressing in place) Labs: CBC, BMP 07/23/17 06:20 07/23/17 15:15 Assessment/Plan Cellulitis L foot S/P amputation of toe Major PCN allergy ( tongue swelling) Dressing left in place because of bleeding at amputation site Continue empiric vancomycin/ aztreonam/ flagyl pending final wound c/s Local wound care
[2017-07-24] MEDS: ATORVASTATIN CA 10 MG TABLET (FP) PO SCH (21:47)
[2017-07-24] MEDS: RANITIDINE HCL 150 MG TABLET (FP) PO SCH (21:47)
[2017-07-24] MEDS: BUDESONIDE/FORMETEROL FUMARATE 160/4.5 mcg INHALER IH SCH (21:50)
[2017-07-25] MEDS: AZTREONAM 1 GM in DEXTROSE 5%-WATER - 50 ML IVPB SCH ×3 (01:14→19:45)
[2017-07-25] MEDS: VANCOMYCIN 1 GM PREMIX - 1 GM/200 ML BAG IVPB SCH ×2 (04:03→17:19)
--- NOTE | 2017-07-25 06:32 | PN ---
Progress Note (short form) - Note Progress Note: Podiatry F/U: Seen/evaluated at bedside Nad. Pain controlled, denies F/V/N/C/SOB/CP. Low grade temp 99 F, otherwise VSS. S/p L 2nd digit amputation. VANGIE: L foot: dressing C/D/I, no active bleeding. Sutures well coapted with distal aspect open, no purulent drainage, no fluctuance, no soft tissue crepitus, ascending cellulitis resolved, markedly improved, decreased edema WBC: 9.6 ESR: 63 OR cx: staph coag positive, preliminary Imp: 77 year old M s/p L 2nd digit amputation 1. DSD L foot 2. Continue local wound care 3. Partial WB L heel with surgical offloading shoe 4. Needs vascular studies, vascular f/u 5. Will follow Yu Iraheta DPM
--- NOTE | 2017-07-25 08:01 | PN ---
Progress Note, Physician - Current Medication List Current Medications: Active Medications Allopurinol (Zyloprim -) 300 mg PO DAILY [facility] Last Admin: 07/24/17 10:20 Dose: 300 mg Atorvastatin Calcium (Lipitor -) 10 mg PO HS [facility] Last Admin: 07/24/17 21:47 Dose: 10 mg Budesonide/Formoterol Fumarate (Symbicort 160/4.5mcg -) 2 puff IH BID [facility] Last Admin: 07/24/17 21:50 Dose: 2 puff Fentanyl (Sublimaze Injection -) 25 mcg IVPUSH [id number] PRN PRN Reason: PAIN-PACU ORDER X 4 DOSES ONLY Heparin Sodium (Porcine) (Heparin -) 5,000 unit SQ BID [facility] Last Admin: 07/24/17 21:47 Dose: 5,000 unit Vancomycin HCl (Vancomycin 1 Gm Premix -) 1 gm in 200 mls @ 133.333 mls/hr IVPB Q12H [facility]; Protocol Last Admin: 07/25/17 04:03 Dose: 133.333 mls/hr Aztreonam 1 gm/ Dextrose 50 mls @ 100 mls/hr IVPB Q8H-IV [facility]; Protocol Last Admin: 07/25/17 01:14 Dose: 100 mls/hr Metronidazole (Flagyl 500mg Premixed Ivpb -) 500 mg in 100 mls @ 100 mls/hr IVPB Q8H-IV [facility] Last Admin: 07/25/17 01:24 Dose: 100 mls/hr Lactated Ringer's (Lactated Ringers Solution) 1,000 mls @ 75 mls/hr IV ASDIR [facility] Last Admin: 07/24/17 12:57 Dose: 75 mls/hr Non-Formulary Medication (Captopril [Captopril]) 100 mg PO BID [facility] Ondansetron HCl (Zofran Injection) 4 mg IVPUSH Q6H PRN PRN Reason: NAUSEA AND/OR VOMITING Oxycodone HCl (Roxicodone -) 5 mg PO Q4H PRN PRN Reason: PAIN LEVEL 1-5 Propranolol HCl (Inderal La -) 80 mg PO HS [facility] Last Admin: 07/24/17 21:47 Dose: 80 mg Ranitidine HCl (Zantac -) 300 mg PO [facility] Last Admin: 07/24/17 21:47 Dose: 300 mg Valsartan (Diovan -) 160 mg PO BID [facility] Last Admin: 07/24/17 21:47 Dose: 160 mg - Objective Vital Signs: Vital Signs Temperature 98.8 F 07/25/17 06:26 Pulse Rate 70 07/25/17 06:26 Respiratory Rate 18 07/25/17 06:26 Blood Pressure 152/75 07/25/17 06:26 O2 Sat by Pulse Oximetry (%) 98 07/24/17 21:00 Labs: CBC, BMP 07/23/17 06:20 07/23/17 15:15 Problem List - Problems (1) Cellulitis Code(s): L03.90 - CELLULITIS, UNSPECIFIED Qualifiers: Site of cellulitis: extremity Site of cellulitis of extremity: lower extremity Laterality: left Qualified Code(s): L03.116 - Cellulitis of left lower limb (2) Edema Code(s): R60.9 - EDEMA, UNSPECIFIED Qualifiers: Edema type: localized Qualified Code(s): R60.0 - Localized edema (3) COPD (chronic obstructive pulmonary disease) Code(s): J44.9 - CHRONIC OBSTRUCTIVE PULMONARY DISEASE, UNSPECIFIED (4) HTN (hypertension) Code(s): I10 - ESSENTIAL (PRIMARY) HYPERTENSION
[2017-07-25] MEDS: VALSARTAN 160 MG TABLET (UD) PO SCH ×2 (09:57→21:48)
[2017-07-25] MEDS: HEPARIN NA (PORCINE) 5,000 UNITS/ML 1ML VIAL SQ SCH ×2 (09:57→21:49)
[2017-07-25] MEDS: ALLOPURINOL 300 MG TABLET (FP) PO SCH (10:17)
[2017-07-25] MEDS: BUDESONIDE/FORMETEROL FUMARATE 160/4.5 mcg INHALER IH SCH ×2 (11:34→21:50)
[2017-07-25] MEDS: LACTATED RINGERS SOLUTION 1,000 ML IV SCH (17:24)
[2017-07-25] MEDS: RANITIDINE HCL 150 MG TABLET (FP) PO SCH (21:48)
[2017-07-25] MEDS: ATORVASTATIN CA 10 MG TABLET (FP) PO SCH (21:48)
[2017-07-26] MEDS: AZTREONAM 1 GM in DEXTROSE 5%-WATER - 50 ML IVPB SCH ×3 (01:54→17:00)
[2017-07-26] MEDS: VANCOMYCIN 1 GM PREMIX - 1 GM/200 ML BAG IVPB SCH ×3 (04:41→16:49)
--- NOTE | 2017-07-26 08:17 | PN ---
Progress Note, Physician - Current Medication List Current Medications: Active Medications Allopurinol (Zyloprim -) 300 mg PO DAILY [facility] Last Admin: 07/25/17 10:17 Dose: 300 mg Atorvastatin Calcium (Lipitor -) 10 mg PO HS [facility] Last Admin: 07/25/17 21:48 Dose: 10 mg Budesonide/Formoterol Fumarate (Symbicort 160/4.5mcg -) 2 puff IH BID [facility] Last Admin: 07/25/17 21:50 Dose: 2 puff Fentanyl (Sublimaze Injection -) 25 mcg IVPUSH [id number] PRN PRN Reason: PAIN-PACU ORDER X 4 DOSES ONLY Heparin Sodium (Porcine) (Heparin -) 5,000 unit SQ BID [facility] Last Admin: 07/25/17 21:49 Dose: 5,000 unit Vancomycin HCl (Vancomycin 1 Gm Premix -) 1 gm in 200 mls @ 133.333 mls/hr IVPB Q12H [facility]; Protocol Last Admin: 07/26/17 04:41 Dose: 133.333 mls/hr Aztreonam 1 gm/ Dextrose 50 mls @ 100 mls/hr IVPB Q8H-IV [facility]; Protocol Last Admin: 07/26/17 01:54 Dose: 100 mls/hr Metronidazole (Flagyl 500mg Premixed Ivpb -) 500 mg in 100 mls @ 100 mls/hr IVPB Q8H-IV [facility] Last Admin: 07/26/17 01:54 Dose: 100 mls/hr Lactated Ringer's (Lactated Ringers Solution) 1,000 mls @ 75 mls/hr IV ASDIR [facility] Last Admin: 07/25/17 17:24 Dose: 75 mls/hr Non-Formulary Medication (Captopril [Captopril]) 100 mg PO BID [facility] Ondansetron HCl (Zofran Injection) 4 mg IVPUSH Q6H PRN PRN Reason: NAUSEA AND/OR VOMITING Oxycodone HCl (Roxicodone -) 5 mg PO Q4H PRN PRN Reason: PAIN LEVEL 1-5 Propranolol HCl (Inderal La -) 80 mg PO HS [facility] Last Admin: 07/25/17 21:49 Dose: 80 mg Ranitidine HCl (Zantac -) 300 mg PO [facility] Last Admin: 07/25/17 21:48 Dose: 300 mg Valsartan (Diovan -) 160 mg PO BID [facility] Last Admin: 07/25/17 21:48 Dose: 160 mg - Objective Vital Signs: Vital Signs Temperature 98.5 F 07/26/17 06:17 Pulse Rate 76 07/26/17 06:17 Respiratory Rate 18 07/26/17 06:17 Blood Pressure 142/70 07/26/17 06:17 O2 Sat by Pulse Oximetry (%) 98 07/25/17 21:00 Cardiovascular: Yes: Regular Rate and Rhythm Respiratory: Yes: Regular, CTA Bilaterally Gastrointestinal: Yes: Normal Bowel Sounds, Soft Labs: CBC, BMP 07/23/17 06:20 07/23/17 15:15 Problem List - Problems (1) Cellulitis Assessment/Plan: -with ulcer - Note: Operative Date: 07/23/17 Pre-Operative Diagnosis: osteomyelitis 2nd digit left foot Operation: Amputation 2nd digit left foot with Incision and Drainage Post-Operative Diagnosis: Same as Pre-op Surgeon: Gabe Knutson -vascular noted -ct noted--iv abx -id on case -mri results d/w dr [place] --postop changes Code(s): L03.90 - CELLULITIS, UNSPECIFIED Qualifiers: Site of cellulitis: extremity Site of cellulitis of extremity: lower extremity Laterality: left Qualified Code(s): L03.116 - Cellulitis of left lower limb (2) Edema Assessment/Plan: -dc norvasc -lasix x 1 -duplex Code(s): R60.9 - EDEMA, UNSPECIFIED Qualifiers: Edema type: localized Qualified Code(s): R60.0 - Localized edema (3) COPD (chronic obstructive pulmonary disease) Assessment/Plan: nebs Code(s): J44.9 - CHRONIC OBSTRUCTIVE PULMONARY DISEASE, UNSPECIFIED (4) HTN (hypertension) Assessment/Plan: continue with home meds--hold amlodipine Code(s): I10 - ESSENTIAL (PRIMARY) HYPERTENSION
[2017-07-26] MEDS: VALSARTAN 160 MG TABLET (UD) PO SCH ×2 (09:59→21:26)
[2017-07-26] MEDS: BUDESONIDE/FORMETEROL FUMARATE 160/4.5 mcg INHALER IH SCH ×2 (09:59→21:27)
[2017-07-26] MEDS: ALLOPURINOL 300 MG TABLET (FP) PO SCH (09:59)
[2017-07-26] MEDS: HEPARIN NA (PORCINE) 5,000 UNITS/ML 1ML VIAL SQ SCH ×2 (10:02→21:26)
[2017-07-26] MEDS: LACTATED RINGERS SOLUTION 1,000 ML IV SCH (18:00)
[2017-07-26] MEDS: ATORVASTATIN CA 10 MG TABLET (FP) PO SCH (21:26)
[2017-07-26] MEDS: RANITIDINE HCL 150 MG TABLET (FP) PO SCH (21:26)
[2017-07-27] MEDS: AZTREONAM 1 GM in DEXTROSE 5%-WATER - 50 ML IVPB SCH ×2 (01:53→09:12)
[2017-07-27] MEDS: VANCOMYCIN 1 GM PREMIX - 1 GM/200 ML BAG IVPB SCH ×2 (04:38→16:35)
[2017-07-27] MEDS ORDERED: PT OWN MED DRAWER 7, Y5N ONE ×2 (08:59→09:57)
[2017-07-27] MEDS: ALLOPURINOL 300 MG TABLET (FP) PO SCH (09:58)
[2017-07-27] MEDS: VALSARTAN 160 MG TABLET (UD) PO SCH ×2 (09:58→21:14)
[2017-07-27] MEDS: BUDESONIDE/FORMETEROL FUMARATE 160/4.5 mcg INHALER IH SCH ×2 (09:58→21:14)
[2017-07-27] MEDS: HEPARIN NA (PORCINE) 5,000 UNITS/ML 1ML VIAL SQ SCH ×2 (09:58→21:15)
--- NOTE | 2017-07-27 12:28 | PN ---
Progress Note, Physician Chief Complaint: Left 2nd toe amputation Diabetic foot ulcer History of Present Illness: NAD still on IV abx Seen by ID and podiatry - Current Medication List Current Medications: Active Medications Allopurinol (Zyloprim -) 300 mg PO DAILY [facility] Last Admin: 07/27/17 09:58 Dose: 300 mg Atorvastatin Calcium (Lipitor -) 10 mg PO HS [facility] Last Admin: 07/26/17 21:26 Dose: 10 mg Budesonide/Formoterol Fumarate (Symbicort 160/4.5mcg -) 2 puff IH BID [facility] Last Admin: 07/27/17 09:58 Dose: 2 puff Fentanyl (Sublimaze Injection -) 25 mcg IVPUSH [id number] PRN PRN Reason: PAIN-PACU ORDER X 4 DOSES ONLY Heparin Sodium (Porcine) (Heparin -) 5,000 unit SQ BID [facility] Last Admin: 07/27/17 09:58 Dose: 5,000 unit Vancomycin HCl (Vancomycin 1 Gm Premix -) 1 gm in 200 mls @ 133.333 mls/hr IVPB Q12H [facility]; Protocol Last Admin: 07/27/17 04:38 Dose: 133.333 mls/hr Aztreonam 1 gm/ Dextrose 50 mls @ 100 mls/hr IVPB Q8H-IV [facility]; Protocol Last Admin: 07/27/17 09:12 Dose: 100 mls/hr Metronidazole (Flagyl 500mg Premixed Ivpb -) 500 mg in 100 mls @ 100 mls/hr IVPB Q8H-IV [facility] Last Admin: 07/27/17 09:58 Dose: 100 mls/hr Lactated Ringer's (Lactated Ringers Solution) 1,000 mls @ 75 mls/hr IV ASDIR [facility] Last Admin: 07/26/17 18:00 Dose: 75 mls/hr Non-Formulary Medication (Captopril [Captopril]) 100 mg PO BID [facility] Ondansetron HCl (Zofran Injection) 4 mg IVPUSH Q6H PRN PRN Reason: NAUSEA AND/OR VOMITING Propranolol HCl (Inderal La -) 80 mg PO HS [facility] Last Admin: 07/26/17 21:26 Dose: 80 mg Ranitidine HCl (Zantac -) 300 mg PO HS [facility] Last Admin: 07/26/17 21:26 Dose: 300 mg Valsartan (Diovan -) 160 mg PO BID [facility] Last Admin: 07/27/17 09:58 Dose: 160 mg - Objective Vital Signs: Vital Signs Temperature 98.5 F 07/27/17 06:27 Pulse Rate 68 07/27/17 06:27 Respiratory Rate 20 07/27/17 06:27 Blood Pressure 147/80 07/27/17 06:27 O2 Sat by Pulse Oximetry (%) 98 07/26/17 21:00 Constitutional: Yes: Well Nourished, No Distress, Calm Cardiovascular: Yes: Regular Rate and Rhythm Respiratory: Yes: Regular Musculoskeletal: Yes: Muscle Weakness Neurological: Yes: Alert, Oriented Psychiatric: Yes: Alert, Oriented Labs: CBC, BMP 07/23/17 06:20 07/23/17 15:15 Problem List - Problems (1) Hypokalemia Assessment/Plan: -repeat labs today Code(s): E87.6 - HYPOKALEMIA (2) COPD (chronic obstructive pulmonary disease) Assessment/Plan: -On symbicort -Nasal O 2 PRN Code(s): J44.9 - CHRONIC OBSTRUCTIVE PULMONARY DISEASE, UNSPECIFIED (3) Cellulitis Assessment/Plan: s/p left 2nd toe amputation -On IV abx -Seen by ID and Podiatry -Awaiting pathology report -Physical therapy ordered Code(s): L03.90 - CELLULITIS, UNSPECIFIED Qualifiers: Site of cellulitis: extremity Site of cellulitis of extremity: lower extremity Laterality: left Qualified Code(s): L03.116 - Cellulitis of left lower limb Assessment/Plan see problem list DVT prophylaxis
[2017-07-27] MEDS: CAPTOPRIL 100 MG PO SCH ×2 (12:55→12:56)
--- NOTE | 2017-07-27 13:39 | PN ---
Progress Note, Physician History of Present Illness: S/P amputation of toe. No c/o foot pain No fever/ chills Tolerating antibiotics. No adverse rxn - Current Medication List Current Medications: Active Medications Allopurinol (Zyloprim -) 300 mg PO DAILY [facility] Last Admin: 07/27/17 09:58 Dose: 300 mg Atorvastatin Calcium (Lipitor -) 10 mg PO [facility] Last Admin: 07/26/17 21:26 Dose: 10 mg Budesonide/Formoterol Fumarate (Symbicort 160/4.5mcg -) 2 puff IH BID [facility] Last Admin: 07/27/17 09:58 Dose: 2 puff Heparin Sodium (Porcine) (Heparin -) 5,000 unit SQ BID [facility] Last Admin: 07/27/17 09:58 Dose: 5,000 unit Vancomycin HCl (Vancomycin 1 Gm Premix -) 1 gm in 200 mls @ 133.333 mls/hr IVPB Q12H [facility]; Protocol Last Admin: 07/27/17 04:38 Dose: 133.333 mls/hr Aztreonam 1 gm/ Dextrose 50 mls @ 100 mls/hr IVPB Q8H-IV [facility]; Protocol Last Admin: 07/27/17 09:12 Dose: 100 mls/hr Metronidazole (Flagyl 500mg Premixed Ivpb -) 500 mg in 100 mls @ 100 mls/hr IVPB Q8H-IV [facility] Last Admin: 07/27/17 09:58 Dose: 100 mls/hr Lactated Ringer's (Lactated Ringers Solution) 1,000 mls @ 75 mls/hr IV ASDIR [facility] Last Admin: 07/26/17 18:00 Dose: 75 mls/hr Propranolol HCl (Inderal La -) 80 mg PO [facility] Last Admin: 07/26/17 21:26 Dose: 80 mg Ranitidine HCl (Zantac -) 300 mg PO HS [facility] Last Admin: 07/26/17 21:26 Dose: 300 mg Valsartan (Diovan -) 160 mg PO BID [facility] Last Admin: 07/27/17 09:58 Dose: 160 mg - Objective Vital Signs: Vital Signs Temperature 98.5 F 07/27/17 06:27 Pulse Rate 68 07/27/17 06:27 Respiratory Rate 20 07/27/17 06:27 Blood Pressure 147/80 07/27/17 06:27 O2 Sat by Pulse Oximetry (%) 98 07/26/17 21:00 Constitutional: Yes: No Distress Eyes: Yes: Conjunctiva Clear Cardiovascular: Yes: Regular Rate and Rhythm, S1, S2 Respiratory: Yes: CTA Bilaterally Gastrointestinal: Yes: Normal Bowel Sounds, Soft. No: Tenderness Extremities: Yes: Other (S/P amputation of second toe; surgical site w/o sign of infection; swelling and erythema foot resolved) Labs: CBC, BMP 07/23/17 06:20 07/23/17 15:15 Assessment/Plan Cellulitis L foot resolved S/P amputation of toe Major PCN allergy ( tongue swelling) Continue vancomycin final path report Local wound care
--- NOTE | 2017-07-27 13:46 | PN ---
Progress Note (short form) - Note Progress Note: Podiatry F/U: Seen/evaluated at bedside, NAD. Pain controlled, denies F/V/N/C/SOB/CP. Afebrile, VSS. S/P L 2nd digit amputation. VANGIE: L foot: dressing C/D/I, no active bleeding. Sutures well coapted with some dehiscence noted distally, underlying granular base, mild maceration to borders , no purulence, no fluctuance, no soft tissue crepitus. Ascending cellulitis resolved. OR Cx: staph aureus OR Path: pending Imp: 77 year old DM M s/p L 2nd digit amputation 1. IV abx 2. DSD L foot 3. Partial WB L heel surgical shoe 4. PT eval 5. F/u OR culture/path 6. Will follow Yu Iraheta DPM
[2017-07-27 15:13] LABS: BASO % 0.6 % (0-2.0); EOS % 1.4 % (0-4.5); HEMATOCRIT 36.5 % (35.4-49); HEMOGLOBIN 12.9 GM/dL (11.7-16.9); LYMPH % 11.3 % (8-40); MCH 32.7 pg (25.7-33.7); MCHC 35.3 g/dl (32.0-35.9); MEAN CELL VOLUME 92.6 fl (80-96); MEAN PLT VOLUME 7.2 fl (7.5-11.1); MONO % 10.5 % (3.8-10.2); NEUT % 76.2 % (42.8-82.8); PLATELET COUNT 218 K/MM3 (134-434); RBC 3.94 M/mm3 (4.00-5.60); RDW 14.1 % (11.9-15.9); WHITE BLOOD COUNT 6.8 K/mm3 (4.0-10.0)
[2017-07-27 15:20] LABS: ALBUMIN 2.4 g/dl (3.4-5.0); ALK PHOS 70 U/L (45-117); ANION GAP 11 (8-16); BILIRUBIN,TOTAL 0.3 mg/dL (0.2-1.0); BLOOD UREA NITROGEN 7 mg/dL (7-18); CALCIUM 7.9 mg/dL (8.5-10.1); CHLORIDE 103 mmol/L (98-107); CO2 25 mmol/L (21-32); CREATININE 0.7 mg/dL (0.7-1.3); GLUCOSE,RANDOM 166 mg/dL (74-106); POTASSIUM 3.9 mmol/L (3.5-5.1); SGOT/AST 119 U/L (15-37); SGPT/ALT 102 U/L (12-78); SODIUM 139 mmol/L (136-145); TOT PROT 5.3 g/dl (6.4-8.2)
[2017-07-27] MEDS: RANITIDINE HCL 150 MG TABLET (FP) PO SCH (21:14)
[2017-07-27] MEDS: ATORVASTATIN CA 10 MG TABLET (FP) PO SCH (21:14)
[2017-07-28] MEDS: VANCOMYCIN 1 GM PREMIX - 1 GM/200 ML BAG IVPB SCH (04:15)
--- NOTE | 2017-07-28 08:01 | PN ---
Progress Note, Physician - Current Medication List Current Medications: Active Medications Allopurinol (Zyloprim -) 300 mg PO DAILY [facility] Last Admin: 07/27/17 09:58 Dose: 300 mg Atorvastatin Calcium (Lipitor -) 10 mg PO [facility] Last Admin: 07/27/17 21:14 Dose: 10 mg Budesonide/Formoterol Fumarate (Symbicort 160/4.5mcg -) 2 puff IH BID [facility] Last Admin: 07/27/17 21:14 Dose: 2 puff Heparin Sodium (Porcine) (Heparin -) 5,000 unit SQ BID [facility] Last Admin: 07/27/17 21:15 Dose: 5,000 unit Vancomycin HCl (Vancomycin 1 Gm Premix -) 1 gm in 200 mls @ 133.333 mls/hr IVPB Q12H [facility]; Protocol Last Admin: 07/28/17 04:15 Dose: 133.333 mls/hr Non-Formulary Medication (Budesonide) 9 mg PO DAILY [facility] Propranolol HCl (Inderal La -) 80 mg PO [facility] Last Admin: 07/27/17 21:14 Dose: 80 mg Ranitidine HCl (Zantac -) 300 mg PO [facility] Last Admin: 07/27/17 21:14 Dose: 300 mg Valsartan (Diovan -) 160 mg PO BID [facility] Last Admin: 07/27/17 21:14 Dose: 160 mg - Objective Vital Signs: Vital Signs Temperature 98.8 F 07/28/17 06:49 Pulse Rate 74 07/28/17 06:49 Respiratory Rate 20 07/28/17 06:49 Blood Pressure 142/85 07/28/17 06:49 O2 Sat by Pulse Oximetry (%) 98 07/27/17 21:00 Cardiovascular: Yes: Regular Rate and Rhythm, S3 Respiratory: Yes: Regular, CTA Bilaterally Gastrointestinal: Yes: Normal Bowel Sounds, Soft Labs: CBC, BMP 07/27/17 14:40 07/27/17 14:40 Problem List - Problems (1) Cellulitis Assessment/Plan: -with ulcer - Note: Operative Date: 07/23/17 Pre-Operative Diagnosis: osteomyelitis 2nd digit left foot Operation: Amputation 2nd digit left foot with Incision and Drainage Post-Operative Diagnosis: Same as Pre-op Surgeon: Gabe Knutson -vascular noted -ct noted--iv abx -id on case -mri results d/w dr [place]ton --postop changes -Seen by ID and Podiatry -Awaiting pathology report -Physical therapy Code(s): L03.90 - CELLULITIS, UNSPECIFIED Qualifiers: Site of cellulitis: extremity Site of cellulitis of extremity: lower extremity Laterality: left Qualified Code(s): L03.116 - Cellulitis of left lower limb (2) COPD (chronic obstructive pulmonary disease) Assessment/Plan: nebs Code(s): J44.9 - CHRONIC OBSTRUCTIVE PULMONARY DISEASE, UNSPECIFIED (3) HTN (hypertension) Assessment/Plan: continue with home meds--hold amlodipine Code(s): I10 - ESSENTIAL (PRIMARY) HYPERTENSION (4) Autoimmune hepatitis Assessment/Plan: -LFT rising--? abx vs autoimmune -resume steroids -GI consult Code(s): K75.4 - AUTOIMMUNE HEPATITIS
[2017-07-28 09:54] LABS: ALBUMIN 2.6 g/dl (3.4-5.0); ANION GAP 6 (8-16); BILIRUBIN,TOTAL 0.4 mg/dL (0.2-1.0); BLOOD UREA NITROGEN 5 mg/dL (7-18); CHLORIDE 104 mmol/L (98-107); CO2 26 mmol/L (21-32); CREATININE 0.7 mg/dL (0.7-1.3); GLUCOSE,RANDOM 137 mg/dL (74-106); POTASSIUM 3.8 mmol/L (3.5-5.1); SGOT/AST 166 U/L (15-37); SGPT/ALT 152 U/L (12-78); SODIUM 136 mmol/L (136-145); TOT PROT 5.6 g/dl (6.4-8.2)
[2017-07-28 09:56] LABS: ALK PHOS 74 U/L (45-117)
[2017-07-28] MEDS ORDERED: BUDESONIDE 9 MG PO SCH (10:00)
[2017-07-28] MEDS ORDERED: PT OWN MED DRAWER 7, Y5N ONE ×2 (10:07→10:45)
[2017-07-28] MEDS: VALSARTAN 160 MG TABLET (UD) PO SCH ×2 (10:32→21:34)
[2017-07-28] MEDS: ALLOPURINOL 300 MG TABLET (FP) PO SCH (10:32)
[2017-07-28] MEDS: BUDESONIDE/FORMETEROL FUMARATE 160/4.5 mcg INHALER IH SCH ×2 (10:33→21:36)
[2017-07-28] MEDS: HEPARIN NA (PORCINE) 5,000 UNITS/ML 1ML VIAL SQ SCH ×2 (10:33→21:34)
--- NOTE | 2017-07-28 11:58 | PN ---
Progress Note, Physician History of Present Illness: S/P amputation of toe. No c/o foot pain No fever/ chills Tolerating antibiotics. No adverse rxn - Current Medication List Current Medications: Active Medications Allopurinol (Zyloprim -) 300 mg PO DAILY [facility] Last Admin: 07/28/17 10:32 Dose: 300 mg Budesonide/Formoterol Fumarate (Symbicort 160/4.5mcg -) 2 puff IH BID [facility] Last Admin: 07/28/17 10:33 Dose: 2 puff Heparin Sodium (Porcine) (Heparin -) 5,000 unit SQ BID [facility] Last Admin: 07/28/17 10:33 Dose: 5,000 unit Vancomycin HCl (Vancomycin 1 Gm Premix -) 1 gm in 200 mls @ 133.333 mls/hr IVPB Q12H [facility] [place]; Protocol Last Admin: 07/28/17 04:15 Dose: 133.333 mls/hr Non-Formulary Medication (Budesonide) 9 mg PO DAILY [facility] [place] Propranolol HCl (Inderal La -) 80 mg PO HS [facility] Last Admin: 07/27/17 21:14 Dose: 80 mg Valsartan (Diovan -) 160 mg PO BID [facility] Last Admin: 07/28/17 10:32 Dose: 160 mg - Objective Vital Signs: Vital Signs Temperature 98.8 F 07/28/17 06:49 Pulse Rate 74 07/28/17 06:49 Respiratory Rate 20 07/28/17 06:49 Blood Pressure 142/85 07/28/17 06:49 O2 Sat by Pulse Oximetry (%) 98 07/27/17 21:00 Constitutional: Yes: No Distress Eyes: Yes: Conjunctiva Clear Cardiovascular: Yes: Regular Rate and Rhythm, S1, S2 Respiratory: Yes: CTA Bilaterally Gastrointestinal: Yes: Normal Bowel Sounds, Soft, Abdomen, Obese. No: Tenderness Extremities: Yes: Other (2nd toe amputation site with sutures in place. No erythema/ drainage) Labs: CBC, BMP 07/27/17 14:40 07/28/17 08:30 Assessment/Plan Cellulitis L foot - resolved S/P amputation of toe Major PCN allergy ( tongue swelling) Discontinue vancomycin Substitute levaquin 500mg po qd x7d Local wound care
--- NOTE | 2017-07-28 13:58 | PN ---
Progress Note (short form) - Note Progress Note: Podiatry F/U: Seen/evaluated at bedside NAD. Pain well controlled, denies F/V/N/C/SOB/CP. Afebrile, VSS. S/p L 2nd digit amputation. VANGIE: L foot: dressing C/D/I, no active bleeding. Sutures well coapted, no dehiscence , mild maceration, no purulent drainage, no fluctuance, ascending cellulitis is resolved, no tenderness to palpation. WBC: 6.8 Cx: MSSA Post-surgical MRI: no definitive evidence of residual osteomyelitis Imp: 77 year old DM M s/p L 2nd digit amputation 1. Abx per ID. Per ID note, switching abx to PO levaquin x 7 d 2. DSD L foot 3. Partial WB L heel with surgical offloading shoe 4. Post-surgical MRI noted, no definitive evidence of residual osteomyelitis. 5. Patient requires home nursing services for dressing changes with bactroban ointment to post-surgical site, followed by dry sterile dressing, changed 2-3x/ week. 6. Upon discharge, patient will f/u with me in wound healing center 08/04/17. [phone] Yu Iraheta DPM
--- NOTE | 2017-07-28 16:28 | CON.GI ---
Consult Consult Specialty:: Gastroenterology Referred by:: Dr. Jones Reason for Consultation:: Transaminitis. Covering for Dr. Vann - History of Present Illness History of Present Illness: Patient is a 77 year old male brought in by his due to pain, erythema, swelling, and warmth of the 2nd left toe. Patient was found to have leukocytosis >14 and was started on IV antibiotics for cellulitis. MRI of the toe was done and patient was found to have Osteomyelitis with positive cultures for staph. Throughout the course patient was found to have transaminitis. Patient denies any abdominal pain, nausea, vomiting, constipation, diarrhea, melena, hematechezia, hematemesis, hematuria chest pain, palpitations, shortness of breath, fevers, chills, IV Drug use. Patient follows Dr. Haney and was diagnosed with Autoimmune hepatitis treated with Budesonide PO. Patient is unsure of when his last colonoscopy is (last record shows 2012) Denies ever having an endoscopy Last U/S done 06/23/17 which showed diffuse fatty infiltrate with hepatic cyst and hemangioma - History Source History Provided By: Patient Limitations to Obtaining History: No Limitations - Past Medical History Cardio/Vascular: Yes: Aneurysm (Abdominal aortic anuerysm ), HTN, Hyperlipdemia Pulmonary: Yes: COPD Hepatobiliary: Yes: Other (Autoimmune Hepatitis (Diagnosed 2017)) Musculoskeletal: Yes: Osteoarthritis Dermatology: Yes: Cellulitis (Left 2nd toe and foot) - Past Surgical History Past Surgical History: Yes: AAA Repair, Hernia Repair - Alcohol/Substance Use Hx Alcohol Use: No (OCC) - Smoking History Smoking history: Former smoker (quit 14 years ago) Have you smoked in the past 12 months: No If you are a former smoker, when did you quit?: 2003 - Social History ADL: Independent 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 History of Recent Travel: No <Wilda Castellanos - Last Filed: 07/28/17 16:55> Home Medications <Wilda Castellanos - Last Filed: 07/28/17 16:55> <Kiko Richardson - Last Filed: 07/28/17 17:10> - Allergies Allergies/Adverse Reactions: Allergies Allergy/AdvReac Type Severity Reaction Status Date / Time Penicillins Allergy Severe "throat Verified 07/21/17 11:55 swells" sulfamethoxazole AdvReac Severe Verified 07/21/17 11:55 [From Bactrim] trimethoprim [From Bactrim] AdvReac Severe Verified 07/21/17 11:55 - Home Medications Home Medications: Ambulatory Orders Allopurinol [Zyloprim -] 300 mg PO DAILY 11/18/13 Amlodipine Besylate [Norvasc -] 5 mg PO DAILY 11/18/13 Aspirin Coated [Ecotrin -] 81 mg PO DAILY 11/18/13 Atorvastatin Ca [Lipitor] 10 mg PO Q2D 11/18/13 Captopril 100 mg PO BID 11/18/13 Folic Acid - 1 mg PO DAILY 11/18/13 Propranolol HCl [Inderal LA] 80 mg PO HS 11/18/13 Ranitidine [Zantac -] 300 mg PO HS 11/18/13 Valsartan [Diovan] 160 mg PO BID 11/18/13 Pauline-3 Fatty Acids/Fish Oil [Fish Oil 1,000 mg Softgel] 1 each PO DAILY Psyllium Husk/Calcium Carb [Metamucil Plus Calcium Capsule] 5 each PO DAILY 10/09 Budesonide [ENTOCORT EC (Nf) -] 3 mg PO TID 07/21/17 Umeclidinium Brm/Vilanterol Tr [Anoro Ellipta 62.5-25 Mcg INH] 1 each IH DAILY 07/21/17 Family Disease History - Family Disease History Family Disease History: Other: Daughter (Colon cancer at age 34 ) <Wilda Castellanos - Last Filed: 07/28/17 16:55> Review of Systems - Review of Systems Constitutional: denies: Chills, Fever, Lethargy Cardiovascular: denies: Chest Pain, Palpitations, Shortness of Breath Respiratory: denies: Cough, Hemoptysis, SOB Gastrointestinal: denies: Abdominal Pain, Bloating, Constipation, Diarrhea, Melena, Nausea, Rectal Bleeding, Vomiting, Vomiting Blood Genitourinary: denies: Burning, Discharge, Dysuria, Hematuria Integumentary: reports: Erythema (2ND left toe (s/p amputation now)), Rash, Wound Hematology/Lymphatic: reports: Easily Bruised. denies: Excessive Bleeding <Wilda Castellanos - Last Filed: 07/28/17 16:55> Physical Exam-GI Vital Signs: Vital Signs Temperature 97.6 F 07/28/17 15:12 Pulse Rate 78 07/28/17 15:12 Respiratory Rate 20 07/28/17 15:12 Blood Pressure 165/93 07/28/17 15:12 O2 Sat by Pulse Oximetry (%) 98 07/28/17 09:00 Constitutional: Yes: Well Nourished, No Distress, Calm Eyes: Yes: Conjunctiva Clear. No: Sclera Icterus Cardiovascular: Yes: WNL, Regular Rate and Rhythm, S1, S2 Respiratory: Yes: WNL, Regular, CTA Bilaterally, Other (Decreased breath sounds on Left lower base) Gastrointestinal Inspection: Yes: Hernia (Reducible periumbilical), Scars ( Vertical midabdominal scar), Other (obese). No: Distention ...Auscultate: Yes: Hyperactive Bowel Sounds ...Palpate: Yes: Soft. No: Firm/Rigid, Guarding, Hepatomegaly, Splenomegaly, Tenderness, Tenderness, Epigastium, Tenderness, Rebound ...Percussion: Yes: Dullness Labs: CBC, [facility] 07/27/17 14:40 07/28/17 08:30 <Wilda Castellanos - Last Filed: 07/28/17 16:55> Vital Signs: Vital Signs Temperature 97.6 F 07/28/17 15:12 Pulse Rate 78 07/28/17 15:12 Respiratory Rate 20 07/28/17 15:12 Blood Pressure 165/93 07/28/17 15:12 O2 Sat by Pulse Oximetry (%) 98 07/28/17 09:00 Labs: CBC, [facility] 07/27/17 14:40 07/28/17 08:30 <Kiko Richardson - Last Filed: 07/28/17 17:10> Imaging - Results Cat Scan: Report Reviewed, Image Reviewed Ultrasound: Report Reviewed, Image Reviewed MRI: Report Reviewed, Image Reviewed <Wilda Castellanos - Last Filed: 07/28/17 16:55> Problem List - Problems (1) Autoimmune hepatitis treated with steroids Assessment/Plan: Patient diagnosed with Autoimmune Hepatitis by Dr. Haney (Nov/Dec 2016). Patient had consistent elevation of Anti-Smooth muscle antibody with regular surveillance with U/S. Will continue Budesonide PO and have patient follow up with Dr. Turchioe after discharge. Will need close monitoring of Hepatic panel as outpatient. Code(s): K75.4 - AUTOIMMUNE HEPATITIS (2) Transaminitis Assessment/Plan: Possibly medication induced as patient was taking Aztreonam from 07/21/17- and has a side effect of transaminitis. Patient also on Heparin sq which also has transaminitis side effect. Patient now off Aztreonam and will discontinue Ranitidine and Lipitor in the mean time. Will order a hepatic panel as well as hepatitis A,B,C panel. 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 Will resume his PO Budesonide and discontinue the symbicort inhaler. Also recommend daily hepatic panel to monitor. Code(s): R74.0 - NONSPEC ELEV OF LEVELS OF TRANSAMNS & LACTIC ACID DEHYDRGNSE <Wilda Castellanos - Last Filed: 07/28/17 16:55> - Problems (1) Autoimmune hepatitis treated with steroids Code(s): K75.4 - AUTOIMMUNE HEPATITIS (2) Transaminitis Assessment/Plan: ATTENDING PHYSICIAN STATEMENT I saw and evaluated the patient. I reviewed the resident's note and discussed the case with the resident. I agree with the resident's findings and plan as documented. SUBJECTIVE: 77M s/p left 2nd toe amputation 07/23 secondary to osteomyelitis h/o AIH No focal GI complaints OBJECTIVE: Anicteric Hrt RRR Lungs: diminished BS left lung base Abdomen: Non distended, + vertical midline scar with leftr paramedian incisional hernia (non-tender), + BS, no HSM Ext: No LE edema and left foot was dressed Labs: As above ROS: + Bruising ASSESSMENTS: Asymptomatic Transaminitis: New since admission. More specifically new since surgery. Called Dr. Haney' s office today and spoke to his nurse Rosalva: transamninases have been normal from at least July 2016 prior to Mr. Mantilla undergoing liver biopsy in .while he has been off of budesonid since prior to surgery it is not clear that this is directly related to his AIH. He has been on aztreonam and was started on SC heparin, both of which can elevate transaminases. Plan Advised the following: D/C'd ranitidine and lipitor. Avoid hepatotoxic agents Hepatitis A/B panel / C antibody ordered CPK ordered to assess for non hepatic etiology Aztreonam has been discontinued If LFTs continue to rise resume PO budesonide now if ok with ID/Surgery. Has not tolerated PO budesonide in the past along with budesonide containing Inhalers. Monitor hepatic panel Spoke w/ Dr. Haney's nurse Rosalva: will arrange for follow-up next week in office. Dr. Haney currently away for conference in [place]. Herve Richardson D.O. Code(s): R74.0 - NONSPEC ELEV OF LEVELS OF TRANSAMNS & LACTIC ACID DEHYDRGNSE <Kiko Richardson - Last Filed: 07/28/17 17:10>
--- NOTE | 2017-07-29 07:46 | DS ---
Physical Examination Vital Signs: Vital Signs Temperature 98.7 F 07/29/17 07:19 Pulse Rate 73 07/29/17 07:19 Respiratory Rate 20 07/29/17 07:19 Blood Pressure 150/72 07/29/17 07:19 O2 Sat by Pulse Oximetry (%) 98 07/28/17 21:00 Labs: CBC, BMP 07/27/17 14:40 07/28/17 08:30 Discharge Summary Reason For Visit: CELLULITIS Current Active Problems Autoimmune hepatitis (Acute) Autoimmune hepatitis treated with steroids (Acute) Cellulitis (Acute) Hypokalemia (Acute) Infected blister of second toe of left foot (Acute) Transaminitis (Acute) Hospital Course: Mr. Mantilla is a 77 yo male w/ pmh of HTN, HLD, prediabetes, COPD, autoimmune hepatits, AAA (repaired), and aortic root aneurysm who presents complaining of 4 day history of pain, warmth, and swelling of the 2nd toe on his left foot.per patient he has been soaking his second toe in warm water at home and he reports no fever at home in ER found to have WBC 14.0 and got iv clindamycin History Source: Patient - Past Medical History Cardiovascular: Yes: HTN, Hyperlipdemia Pulmonary: Yes: COPD Musculoskeletal: Yes: Osteoarthritis - Past Surgical History Past Surgical History: Yes: AAA Repair, Hernia Repair - Problems (1) Cellulitis Assessment/Plan: -with ulcer - Note: Operative Date: 07/23/17 Pre-Operative Diagnosis: osteomyelitis 2nd digit left foot Operation: Amputation 2nd digit left foot with Incision and Drainage Post-Operative Diagnosis: Same as Pre-op Surgeon: Gabe Knutson -vascular noted -ct noted--iv abx -id on case -mri results d/w dr washington --postop changes -Seen by ID and Podiatry -Awaiting pathology report -Physical therapy Code(s): L03.90 - CELLULITIS, UNSPECIFIED Qualifiers: Site of cellulitis: extremity Site of cellulitis of extremity: lower extremity Laterality: left Qualified Code(s): L03.116 - Cellulitis of left lower limb (2) COPD (chronic obstructive pulmonary disease) Assessment/Plan: nebs Code(s): J44.9 - CHRONIC OBSTRUCTIVE PULMONARY DISEASE, UNSPECIFIED (3) HTN (hypertension) Assessment/Plan: continue with home meds--hold amlodipine(edema) start hctz 25 qd Code(s): I10 - ESSENTIAL (PRIMARY) HYPERTENSION (4) Autoimmune hepatitis Assessment/Plan: -LFT rising--? abx vs autoimmune -hold steroids pending labs--d/w gi -GI consult noted Code(s): K75.4 - AUTOIMMUNE HEPATITIS - Instructions Referrals: Isela Lawrence MD [Staff Physician] - Saadia Jones MD [Primary Care Provider] - - Home Medications Comprehensive Discharge Medication List: Ambulatory Orders Allopurinol [Zyloprim -] 300 mg PO DAILY 11/18/13 Aspirin Coated [Ecotrin -] 81 mg PO DAILY 11/18/13 Folic Acid - 1 mg PO DAILY 11/18/13 Propranolol HCl [Inderal LA] 80 mg PO HS 11/18/13 Ranitidine [Zantac -] 300 mg PO HS 11/18/13 Valsartan [Diovan] 160 mg PO BID 11/18/13 [place]-3 Fatty Acids/Fish Oil [Fish Oil 1,000 mg Softgel] 1 each PO DAILY Psyllium Husk/Calcium Carb [Metamucil Plus Calcium Capsule] 5 each PO DAILY 10/09 Budesonide [Entocort EC -] 9 mg PO DAILY 07/21/17 Umeclidinium Brm/Vilanterol Tr [Anoro Ellipta 62.5-25 Mcg INH] 1 each IH DAILY 07/21/17 Budesonide/Formeterol Fumarate [SYMBICORT 160/4.5mcg -] 2 puff IH BID inhaler 07/29/17 levoFLOXacin [Levaquin -] 500 mg PO DAILY@0600 #7 tablet 07/29/17
[2017-07-29 08:22] LABS: ALBUMIN 2.5 g/dl (3.4-5.0); ALK PHOS 72 U/L (45-117); BILIRUBIN,DIRECT < 0.2 mg/dL (0.0-0.2); BILIRUBIN,TOTAL 0.4 mg/dL (0.2-1.0); SGOT/AST 131 U/L (15-37); SGPT/ALT 162 U/L (12-78); TOT PROT 5.3 g/dl (6.4-8.2)
[2017-07-29] MEDS: VALSARTAN 160 MG TABLET (UD) PO SCH ×2 (10:26→21:38)
[2017-07-29] MEDS: BUDESONIDE/FORMETEROL FUMARATE 160/4.5 mcg INHALER IH SCH ×2 (10:27→21:39)
[2017-07-29] MEDS: ALLOPURINOL 300 MG TABLET (FP) PO SCH (10:27)
[2017-07-29] MEDS: HEPARIN NA (PORCINE) 5,000 UNITS/ML 1ML VIAL SQ SCH ×2 (10:28→21:39)
[2017-07-29] MEDS: HYDROCHLOROTHIAZIDE 25 MG TABLET (FP) PO SCH (12:00)
--- NOTE | 2017-07-29 13:46 | PN ---
Progress Note, Physician Chief Complaint: GASTROENTEROLOGY FOLLOW-UP History of Present Illness: Patient offers no complaints today and is wanting to go home today. Patient reports he did not take Budesonide PO or inhaler as he was instructed not too. Concerns for adrenal insufficiency due to the abrupt stop but seems like he is outside of that window period. Patient otherwise denies abdominal pain, nausea , vomiting, constipation, rash, joint pain, fatigue, jaundice, diarrhea, melena , hematechezia, hematemesis, hematuria chest pain, palpitations, shortness of breath, fevers, chills, - Current Medication List Current Medications: Active Medications Allopurinol (Zyloprim -) 300 mg PO DAILY [facility] Last Admin: 07/29/17 10:27 Dose: 300 mg Budesonide/Formoterol Fumarate (Symbicort 160/4.5mcg -) 2 puff IH BID [facility] Last Admin: 07/29/17 10:27 Dose: 2 puff Heparin Sodium (Porcine) (Heparin -) 5,000 unit SQ BID [facility] Last Admin: 07/29/17 10:28 Dose: 5,000 unit Hydrochlorothiazide (Hctz -) 25 mg PO DAILY [facility] Last Admin: 07/29/17 12:00 Dose: 25 mg Levofloxacin (Levaquin -) 500 mg PO DAILY@0600 [facility] Last Admin: 07/29/17 05:57 Dose: 500 mg Non-Formulary Medication (Budesonide) 9 mg PO DAILY [facility] Propranolol HCl (Inderal La -) 80 mg PO HS [facility] Last Admin: 07/28/17 21:34 Dose: 80 mg Valsartan (Diovan -) 160 mg PO BID [facility] Last Admin: 07/29/17 10:26 Dose: 160 mg - Objective Vital Signs: Vital Signs Temperature 98.7 F 07/29/17 07:19 Pulse Rate 73 07/29/17 07:19 Respiratory Rate 20 07/29/17 07:19 Blood Pressure 150/72 07/29/17 07:19 O2 Sat by Pulse Oximetry (%) 98 07/28/17 21:00 Constitutional: Yes: Well Nourished, No Distress, Calm Eyes: Yes: WNL, Conjunctiva Clear Cardiovascular: Yes: WNL, Regular Rate and Rhythm, S1, S2. No: Tachycardia, Pulse Irregular, Bruit, JVD, Gallop Respiratory: Yes: WNL, Regular, CTA Bilaterally, Other (diminshed breath sounds at left lower base). No: Accessory Muscle Use, Rhonchi, SOB, SOB on Exertion Gastrointestinal: Yes: WNL, Normal Bowel Sounds, Soft, Abdomen, Obese, Hernia ( Right reducible perimedial incisional hernia Vertical midabdominal scar), Other (Normoactive bowel sounds). No: Distention, Tenderness Extremities: Yes: Amputation (Second left toe) Edema: No Integumentary: Yes: Bruising Neurological: Yes: WNL, Alert, Oriented Labs: 07/27/17 14:40 07/28/17 08:30 07/29/17 07/29/17 06:00 06:00 Total Bilirubin 0.4 Direct Bilirubin < 0.2 AST 131 H D ALT 162 H Alkaline Phosphatase 72 Creatine Kinase 64 Albumin 2.5 L Problem List - Problems (1) Autoimmune hepatitis treated with steroids Assessment/Plan: Will need to follow up with his director of primary care, Dr. Haney, for his medication regimen as Budesonide is usually given with Azathioprine and not as Monotherapy to achieve normalization of liver enzymes. Will need repeat U/S in 5 months (last U/S 07/10). Code(s): K75.4 - AUTOIMMUNE HEPATITIS (2) Transaminitis Assessment/Plan: Possibly medication induced as patient was taking Aztreonam from 07/21/17- and has a side effect of transaminitis. AST improving but slight increase in ALT. Patient currently off Lipitor and ranitidine. Hepatitis panel pending. Will repeat Hepatic panel in the morning. Patient outside the window of adrenal insufficiency and will not start the steroids right now. Recommend another day inpatient to assure that his transaminase enzymes are not significantly increasing. If AST/ALT improve, patient may be discharged from GI standpoint but will need to follow up with Dr. Haney within one week to resume his Budesonide and repeat labs. Code(s): R74.0 - NONSPEC ELEV OF LEVELS OF TRANSAMNS & LACTIC ACID DEHYDRGNSE Visit type - Emergency Visit Emergency Visit: Yes ED Registration Date: 07/21/17 Care time: The patient presented to the Emergency Department on the above date and was hospitalized for further evaluation of their emergent condition. - New Patient This patient is new to me today: No - Critical Care Critical Care patient: No
--- NOTE | 2017-07-29 18:02 | PATH ---
Surgical Pathology Report Patient Name: SANTI ORTEGA Med. Rec. #: [id number] /Age/Gender: 1940 (Age: 77) / M Account: [id number] Location: [facility]G Taken: 07/23/2017 Received: 07/27/2017 Reported: 07/29/2017 Physicians: Eugene Solorio M.D. Specimen(s) Received A: 2ND TOE LEFT FOOT B: BIOPSY 2ND METATARSAL Clinical History Left second digit ulcer, osteomyelitis, cellulitis Final Diagnosis A. LEFT FOOT, SECOND TOE, AMPUTATION: AMPUTATED TOE SHOWING GANGRENOUS NECROSIS, ACUTE AND CHRONIC INFLAMMATION WITH ABSCESS FORMATION, INVOLVING SKIN AND SOFT TISSUE MARGIN. BONE WITH ACUTE OSTEOMYELITIS. THE BONE MARGIN IS NEGATIVE FOR OSTEOMYELITIS. B. SECOND METATARSAL, BIOPSY: FRAGMENTS OF BONE, NEGATIVE FOR OSTEOMYELITIS. Electronically Signed Paradise Whitman M.D. Gross Description A. Received in formalin labeled "second toe left foot," is a 5.8 x 3.5 x 2.5 cm toe amputation specimen. The epidermal surface displays a 3.0 x 2.5 cm walker-mcmullen, ulcerated lesion which appears to involve the skin and soft tissue margin. The lesion extends to and possibly involves the underlying bone. Maintenance Painter sections are submitted in 3 cassettes as follows: 1-lesion with underlying bone, following decalcification; 2-bone margin, following decalcification; 3-skin and soft tissue margin. B. Received in formalin labeled "biopsy second metatarsal," is a 1.8 x 1.8 x 1.3 cm portion of bone with smooth articular cartilage at one end. The opposing margin displays smooth trabeculated bone. Maintenance Painter sections are submitted in 2 cassettes as follows: 1-bone margin with articular cartilage, following decalcification; 2-opposing bone margin with trabeculated bone, following decalcification. 07/28/201707/28/2017
[2017-07-29] MEDS ORDERED: PT OWN MED DRAWER 7, Y5N ONE (21:33)
[2017-07-30 06:07] LABS: HBSAG SCREEN Negative (Negative); HEP B CORE AB, TOT Negative (Negative)
[2017-07-30 08:33] LABS: ALBUMIN 3.1 g/dl (3.4-5.0); BILIRUBIN,DIRECT 0.2 mg/dL (0.0-0.2); BILIRUBIN,TOTAL 0.6 mg/dL (0.2-1.0); TOT PROT 6.7 g/dl (6.4-8.2)
[2017-07-30] MEDS ORDERED: PT OWN MED DRAWER 7, Y5N ONE (10:20)
[2017-07-30] MEDS: ALLOPURINOL 300 MG TABLET (FP) PO SCH (10:30)
[2017-07-30] MEDS: BUDESONIDE/FORMETEROL FUMARATE 160/4.5 mcg INHALER IH SCH (10:30)
[2017-07-30] MEDS: HYDROCHLOROTHIAZIDE 25 MG TABLET (FP) PO SCH (10:30)
[2017-07-30] MEDS: VALSARTAN 160 MG TABLET (UD) PO SCH (10:30)
[2017-07-30] MEDS: HEPARIN NA (PORCINE) 5,000 UNITS/ML 1ML VIAL SQ SCH (10:30)
[2017-07-30 11:30] VITALS: BMI 30.1
[2017-07-30 11:39] VITALS: BP 139/77; PULSE 72; TEMP 98.3
== END 2017-07-30 12:45 | disposition home health service (06) | DRG 504 ==
LOC: JER 11:53 → JERBED 14:49 → J8W 07-22 16:47
PROVIDERS: ADMIT Family Medicine; ATTEND Family Medicine
PROC: 3E10X8Z Irrigation of Skin and Mucous Membranes using Irrigating Substance (ICD-10-PCS; 2017-07-22)
PROC: 0QTP0ZZ Resection of Left Metatarsal, Open Approach (ICD-10-PCS; 2017-07-23)
PROC: 0Y9N0ZZ Drainage of Left Foot, Open Approach (ICD-10-PCS; 2017-07-23)
PROC: 0Y6S0Z2 Detachment at Left 2nd Toe, Mid, Open Approach (ICD-10-PCS; principal; 2017-07-23 18:00)
DX: M86.9 Osteomyelitis, unspecified (principal); L03.116 Cellulitis of left lower limb; T81.32XA Disruption of internal operation (surgical) wound, not elsewhere classified, initial encounter; I96 Gangrene, not elsewhere classified; J44.9 Chronic obstructive pulmonary disease, unspecified; K75.4 Autoimmune hepatitis; I10 Essential (primary) hypertension; E78.5 Hyperlipidemia, unspecified; I71.4 Abdominal aortic aneurysm, without rupture; E87.6 Hypokalemia; R73.03 Prediabetes; M19.90 Unspecified osteoarthritis, unspecified site; R60.9 Edema, unspecified; S90.425A Blister (nonthermal), left lesser toe(s), initial encounter; L08.9 Local infection of the skin and subcutaneous tissue, unspecified; L97.529 Non-pressure chronic ulcer of other part of left foot with unspecified severity; Y83.8 Other surgical procedures as the cause of abnormal reaction of the patient, or of later complication, without mention of misadventure at the time of the procedure; D72.829 Elevated white blood cell count, unspecified; E66.9 Obesity, unspecified; Z68.30 Body mass index [BMI] 30.0-30.9, adult; R74.0 Nonspecific elevation of levels of transaminase and lactic acid dehydrogenase [LDH]; Z87.891 Personal history of nicotine dependence; Z85.118 Personal history of other malignant neoplasm of bronchus and lung; Z88.0 Allergy status to penicillin
CPT/HCPCS: 36415; 71045-TC-FY; 73630-TC-LT; 73701-TC-RT; 73719-LT; 80048; 80053; 80061; 80076; 81003; 82550; 83721; 83735; 84100; 85025; 85651; 86140; 86704; 86706; 86708; 87040; 87070; 87075; 87186; 87205; 87340; 88304-TC; 88305-TC; 88311-TC; 93005; 93010; 93970-TC; 94760; 97116-GP; 97162-GP; 99284-25; G0480; J1644

== ENCOUNTER 2017-12-16 08:55 | Inpatient (IN) | payer OTHER, BC ==
[2017-12-16] MEDS ORDERED: VANCOMYCIN 1 GM PREMIX - 1 GM/200 ML BAG IVPB ONE (10:23)
--- NOTE | 2017-12-16 10:41 | HP ---
History & Physical Update - History History: No Change - Physical Physical: No Change - Assessment Assessment: No Change - Plan Plan: No Change (H&P and meical cleanrace in chart from 12/08/2017)
[2017-12-16] MEDS ORDERED: VANCOMYCIN 1,000 MG VIAL (RESTRICTED TO ID ONLY) ONE (10:48)
[2017-12-16] MEDS ORDERED: HEPARIN NA (PORCINE) 5,000 UNITS/ML 1ML VIAL ONE ×3 (11:48→14:36)
[2017-12-16] MEDS ORDERED: VANCOMYCIN 1,000 MG VIAL (RESTRICTED TO ID ONLY) IVPB ONE (12:12)
[2017-12-16] MEDS ORDERED: DEXAMETHASONE SOD PHOSPHATE 4 MG/1 ML VIAL ONE (12:26)
[2017-12-16] MEDS ORDERED: PROPOFOL 20 ML ONE (12:27)
[2017-12-16] MEDS ORDERED: ROCURONIUM BROMIDE 50 MG/5 ML VIAL ONE (12:28)
[2017-12-16] MEDS ORDERED: SODIUM CHLORIDE 0.9% P/F 10 ML VIAL IJ ONE (12:44)
[2017-12-16] MEDS ORDERED: BACITRACIN 15 GM TUBE TOPICAL OINTMENT ONE (12:49)
[2017-12-16] MEDS ORDERED: BACITRACIN 50,000 UNITS VIAL TP ONE (13:05)
[2017-12-16] MEDS ORDERED: GELATIN, ABSORBABLE 100 EACH SPONGE TP ONE (14:24)
[2017-12-16] MEDS ORDERED: THROMBIN (BOVINE) 5,000 UNIT VIAL TP ONE ×2 (14:24→14:37)
[2017-12-16] MEDS ORDERED: ePHEDrine SULFATE 50 MG/1 ML AMPULE ONE (14:58)
[2017-12-16] MEDS ORDERED: PROTAMINE SULFATE 50 MG/5 ML VIAL ONE (15:13)
--- NOTE | 2017-12-16 15:45 | OP ---
Operative Note - Note: Operative Date: 12/16/17 Pre-Operative Diagnosis: Left popliteal bypass Operation: Left femoral popliteal bypass with PTFE. Ligation popliteal aneurysm Findings: Calcified femoral and below knee popliteal arteries, popliteal aneurysm Post-Operative Diagnosis: Same as Pre-op Surgeon: Ian Bassett Mentally Impaired Teacher: Sharon Guerrier Anesthesiologist/LOT ATTENDANT: Long Mcdonnell Anesthesia: General Estimated Blood Loss (mls): 200
[2017-12-16] MEDS ORDERED: GLYCOPYRROLATE 0.2 MG/1 ML VIAL ONE (15:48)
[2017-12-16] MEDS ORDERED: NEOSTIGMINE METHYLSULFATE 0.5 MG/ML - 10 ML MDV ONE (15:48)
[2017-12-16] MEDS ORDERED: oxyCODONE HCL 5 MG TABLET PO PRN (16:20)
[2017-12-16] MEDS ORDERED: SODIUM CHLORIDE 1,000 ML IV SCH (16:30)
[2017-12-16 18:04] LABS: BASO % 0.3 % (0-2.0); EOS % 0.4 % (0-4.5); HEMATOCRIT 39.4 % (35.4-49); LYMPH % 5.7 % (8-40); MCH 29.8 pg (25.7-33.7); MEAN CELL VOLUME 90.2 fl (80-96); MEAN PLT VOLUME 8.3 fl (7.5-11.1); MONO % 3.6 % (3.8-10.2); PLATELET COUNT 169 K/MM3 (134-434); RBC 4.37 M/mm3 (4.00-5.60); RDW 15.4 % (11.9-15.9)
[2017-12-16 18:55] LABS: ANION GAP 8 MMOL/L (8-16); BLOOD UREA NITROGEN 15 mg/dL (7-18); CALCIUM 8.4 mg/dL (8.5-10.1); CHLORIDE 107 mmol/L (98-107); CO2 26 mmol/L (21-32); CREATININE 0.8 mg/dL (0.55-1.3); GLUCOSE,RANDOM 143 mg/dL (74-106); POTASSIUM 4.4 mmol/L (3.5-5.1); SODIUM 141 mmol/L (136-145)
--- NOTE | 2017-12-16 21:05 | CONSULT ---
Consultation: REQUESTING PROVIDER: Dr. Bassett CONSULT REQUEST: We have been asked to medically evaluate this patient for s/p Left femoral popliteal bypass with PTFE. HISTORY OF PRESENT ILLNESS: Patient is a 77 year old male with a PMHx of Abdominal Aortic Aneurysm, PAD, CAD ,HTN, HLD, COPD, Autoimmune hepatitis (diagnosed 2016), GERD, Hyperuricemia, gout, and Osteoarthritis who presented today for left femoral popliteal bypass with PTFE and Ligation popliteal aneurysm. Patient is currently POD #0 and tolerated procedure well with no complications. According to patient, he had a left toe amputation 07/2017 with osteomyeltits and then had an arterial duplex of lower extremity, which revealed severe stenosis of the left mid superficial femoral artery and bilateral aneurysmal dilation of the common femoral artery and popliteal artery. Patient was then scheduled by Dr. Bassett for femoral popliteal bypass and ligation of popliteal aneurysm. Patient offers no complaints except for feeling thirsty. Otherwise, patient denies any abdominal pain, nausea, vomiting, constipation, diarrhea, melena, hematechezia, hematemesis, hematuria chest pain, palpitations, shortness of breath, fevers, chills. PMHX: Abdominal Aortic Aneurysm, PAD, CAD, HTN, HLD, COPD, carcinoma of the lung s/p lobectomy, Autoimmune hepatitis, OA, GERD, benign essential tremors, hyperuricemia, gout, sciatica and low back syndrome. 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 Quit smoking 14 years ago. Smoked 1.5 PPD from age [age] Drinks beer socially Denies drugs Family Hx: Father of [place] at age 78. Mother at age 76 from [place] Allergies: Penicillins, Sulfa's REVIEW OF SYSTEMS: CONSTITUTIONAL: Absent: fever, chills, diaphoresis, generalized weakness, malaise, loss of appetite, weight change HEENT: Absent: rhinorrhea, nasal congestion, throat pain, throat swelling, difficulty swallowing, mouth swelling, ear pain, eye pain, visual changes CARDIOVASCULAR: Absent: chest pain, syncope, palpitations, irregular heart rate, lightheadedness , peripheral edema RESPIRATORY: Absent: cough, shortness of breath, dyspnea with exertion, orthopnea, wheezing, stridor, hemoptysis GASTROINTESTINAL: Absent: abdominal pain, abdominal distension, nausea, vomiting, diarrhea, constipation, melena, hematochezia GENITOURINARY: Absent: dysuria, frequency, urgency, hesitancy, hematuria, flank pain, genital pain MUSCULOSKELETAL: Absent: myalgia, arthralgia, joint swelling, back pain, neck pain SKIN: Absent: rash, itching, pallor HEMATOLOGIC/IMMUNOLOGIC: Absent: easy bleeding, easy bruising, lymphadenopathy, frequent infections ENDOCRINE: Absent: unexplained weight gain, unexplained weight loss, heat intolerance, cold intolerance NEUROLOGIC: Absent: headache, focal weakness or paresthesias, dizziness, unsteady gait, seizure, mental status changes, bladder or bowel incontinence PSYCHIATRIC: Absent: anxiety, depression, suicidal or homicidal ideation, hallucinations. PHYSICAL EXAMINATION Vital Signs - 24 hr 12/16/17 12/16/17 12/16/17 10:17 10:21 15:56 Temperature 98.1 F 97.8 F Pulse Rate 47 L 56 L Respiratory 18 14 Rate Blood Pressure 131/57 L 140/61 O2 Sat by Pulse 99 97 Oximetry (%) 12/16/17 12/16/17 12/16/17 16:00 16:15 16:30 Temperature Pulse Rate 56 L 44 L 47 L Respiratory 13 14 12 Rate Blood Pressure 136/57 L 127/57 L 129/61 O2 Sat by Pulse 94 L 100 100 Oximetry (%) 12/16/17 12/16/17 12/16/17 16:45 17:00 17:15 Temperature Pulse Rate 56 L 52 L 49 L Respiratory 12 12 12 Rate Blood Pressure 129/58 L 138/71 128/56 L O2 Sat by Pulse 100 100 99 Oximetry (%) 12/16/17 12/16/17 12/16/17 17:30 17:45 18:00 Temperature Pulse Rate 49 L 60 54 L Respiratory 10 12 13 Rate Blood Pressure 124/61 122/63 126/62 O2 Sat by Pulse 97 97 97 Oximetry (%) 12/16/17 12/16/17 12/16/17 18:15 18:30 18:45 Temperature Pulse Rate 58 L 50 L 66 Respiratory 12 12 11 Rate Blood Pressure 130/52 L 129/58 L 128/67 O2 Sat by Pulse 98 98 100 Oximetry (%) 10/12/16/17 12/16/17 19:00 19:15 19:30 Temperature 97.7 F Pulse Rate 62 66 44 L Respiratory 15 13 14 Rate Blood Pressure 123/65 123/63 141/75 O2 Sat by Pulse 99 100 100 Oximetry (%) 12/16/17 19:45 Temperature Pulse Rate 78 Respiratory 12 Rate Blood Pressure 136/71 O2 Sat by Pulse 100 Oximetry (%) GENERAL: Awake, alert, and fully oriented, in no acute distress. HEAD: Normal with no signs of trauma. EYES: PERRLA, extraocular movements intact, sclera anicteric, conjunctiva clear. No lid lag. EARS, NOSE, THROAT: Oropharynx clear without exudates. Dry mucous membranes. NECK: Normal range of motion, supple without lymphadenopathy, JVD, or masses. LUNGS: CTA B/L with no wheezes, and no crackles. No accessory muscle use. HEART: RRR, normal S1 and S2 without murmur, rub or gallop. ABDOMEN: Soft, obese, nontender, not distended, normoactive bowel sounds, Reducible periumbilical hernia, (+) midabdominal vertical scar. MUSCULOSKELETAL: No CVA tenderness. UPPER EXTREMITIES:No peripheral edema. LOWER EXTREMITIES: 2+ pulses, warm, well-perfused. No calf tenderness. No peripheral edema. Left leg wound dressing c/d/i NEUROLOGICAL: Cranial nerves II-XII intact. Normal speech. Sensory intact throughout with motor strength 5/5 bilaterally PSYCHIATRIC: Cooperative. Good eye contact. Appropriate mood and affect. SKIN: Warm, dry, normal turgor, no rashes or lesions noted. Laboratory Results - last 24 hr 12/16/17 12/16/17 12/16/17 09:05 17:10 17:10 WBC 13.0 H RBC 4.37 Hgb 13.0 Hct 39.4 MCV 90.2 MCH 29.8 MCHC 33.0 RDW 15.4 Plt Count 169 D MPV 8.3 D Absolute Neuts (auto) 11.7 H Neutrophils % 90.0 H Lymphocytes % 5.7 L D Monocytes % 3.6 L Eosinophils % 0.4 Basophils % 0.3 Nucleated RBC % 0 Sodium 141 Potassium 4.4 Chloride 107 Carbon Dioxide 26 Anion Gap 8 BUN 15 Creatinine 0.8 Creat Clearance w eGFR > 60 Random Glucose 143 H Calcium 8.4 L Blood Type O POSITIVE Antibody Screen Negative Crossmatch See Detail Active Medications Generic Name Dose Route Start Last Admin Trade Name Freq PRN Reason Stop Dose Admin Acetaminophen 650 mg 12/16/17 18:00 Tylenol - PO 12/18/17 00:[address] [facility] Allopurinol 300 mg 12/17/17 10:00 Zyloprim - PO DAILY [facility] Amlodipine Besylate 10 mg 12/17/17 10:00 Norvasc - PO DAILY [facility] Aspirin 81 mg 12/17/17 10:00 Ecotrin - PO DAILY [facility] Budesonide/Formoterol Fumarate 2 puff 12/17/17 10:00 Symbicort 80/4.5mcg - IH DAILY [facility] Clopidogrel Bisulfate 75 mg 12/17/17 10:00 Plavix - PO DAILY [facility] Docusate Sodium 100 mg 12/16/17 22:00 Colace - PO BID [facility] Fentanyl 25 mcg 12/16/17 16:02 12/16/17 17:05 Sublimaze Injection - IVPUSH 25 mcg [id number] PRN Administration PAIN-PACU ORDER X 4 DOSES ONLY Folic Acid 1 mg 12/17/17 10:00 Folic Acid - PO DAILY [facility] Heparin Sodium (Porcine) 5,000 unit 12/16/17 22:00 Heparin - SQ TID [facility] Vancomycin HCl 1,000 mg in 250 mls @ 166.667 mls/hr 12/17/17 00:00 Vancomycin (Pre-Docked) IVPB 12/17/17 01:29 ONCE ONE Protocol Sodium Chloride 1,000 mls @ 125 mls/hr 12/16/17 16:30 Normal Saline - IV ASDIR [facility] Non-Formulary Medication 80 mg 12/17/17 10:00 Azilsartan Medoxomil [Edarbi] PO DAILY [facility] Oxycodone HCl 5 mg 12/16/17 16:20 Roxicodone - PO Q6H PRN PAIN LEVEL 1-5 Oxycodone HCl 10 mg 12/16/17 16:20 Roxicodone - PO Q6H PRN PAIN LEVEL 6-10 Propranolol HCl 80 mg 12/16/17 22:00 Inderal La - PO [facility] Psyllium Hydrophilic Mucilloid 5.85 gm 12/17/17 10:00 Metamucil (Sugar-Free) - PO DAILY [facility] Ranitidine HCl 300 mg 12/16/17 22:00 Zantac - PO HS [facility] Rosuvastatin Calcium 10 mg 12/16/17 22:00 Crestor - PO HS [facility] ASSESSMENT/PLAN: Patient is a 77 year old male who presented to the hospital for scheduled Left femoral popliteal bypass with PTFE by Dr. Bassett. Patient admitted to ICU for overnight monitoring and management. SURGERY #S/P Left Femoral Popliteal Bypass with PTFE and Ligation Popliteal Aneurysm -POD #0, tolerated procedure well with no complications. EBL 200mls -Pain control with Tylenol and Roxicodone PRN, Fentanyl injection -Continue home medication ASA 81mg, Plavix 75mg, and Crestor 10mg -Continue DVT prophylaxis with Heparin 5000 units TID sq -Continue IV NS @125mls/hr . -Frequent doppler checks for pulse checks -Monitor UOP VASCULAR #PAD -Continue home medication ASA 81mg, Plavix 75mg, and Crestor 10mg #CAD -Continu ASA #HTN -Continue home medications Norvasc 10mg po and Edarbi 80mg po -Continue to monitor BP #HLD -Continue Crestor 10mg daily PULMONARY #COPD -Continue home medication Symbicort GASTROENTEROLOGY #Autoimmune Hepatitis -Follows up with Dr. Gracia #GERD -Continue Zantac 300mg HS NEUROLOGY #Benign Essential Tremors -Continue home medication Propranolol 80mg po daily #Sciatica/Low back pain -Continue pain medication with Tylenol and Roxicodone RHEUMOTOLOGY #Gout/Hyperuricemia -Continue home medication Allopurinol 300mg daily F/E/N -On NS @125mls/hr -Electrolytes wnl -Clear liquid diet Prophylaxis -Heparin 5000 units sq TID for DVT -Zantac for GI Disposition -Full code -Continue to monitor overnight with possible transfer to floors tomorrow Dispo: We will continue to follow the patient. Thank you for this consultative opportunity. Wilda Castellanos [id number] Visit type - Emergency Visit Emergency Visit: Yes ED Registration Date: 12/16/17 Care time: The patient presented to the Emergency Department on the above date and was hospitalized for further evaluation of their emergent condition. - New Patient This patient is new to me today: Yes Date on this admission: 12/16/17 - Critical Care Critical Care patient: Yes Total Critical Care Time (in minutes): 45 Critical Care Statement: The care of this patient involved high complexity decision making to prevent further life threatening deterioration of the patient 's condition and/or to evaluate & treat vital organ system(s) failure or risk of failure.
[2017-12-16] MEDS: RANITIDINE HCL 150 MG TABLET (FP) PO SCH (22:39)
[2017-12-16] MEDS: ROSUVASTATIN CA 10 MG TABLET (FP) PO SCH (22:39)
[2017-12-16] MEDS: DOCUSATE SODIUM 100 MG CAPSULE (FP) PO SCH (22:40)
[2017-12-16] MEDS: ACETAMINOPHEN 325 MG TABLET (FP) PO SCH (22:40)
[2017-12-16] MEDS: HEPARIN NA (PORCINE) 5,000 UNITS/ML 1ML VIAL SQ SCH (22:41)
[2017-12-17] MEDS ORDERED: VANCOMYCIN 1 GRAM (PRE-DOCKED) 1,000 MG/250 ML BAG IVPB ONE
[2017-12-17] MEDS: ACETAMINOPHEN 325 MG TABLET (FP) PO SCH ×4 (06:10→18:00)
[2017-12-17] MEDS: HEPARIN NA (PORCINE) 5,000 UNITS/ML 1ML VIAL SQ SCH ×3 (06:11→21:55)
[2017-12-17 06:48] LABS: ANION GAP 7 MMOL/L (8-16); BLOOD UREA NITROGEN 13 mg/dL (7-18); CALCIUM 8.1 mg/dL (8.5-10.1); CHLORIDE 106 mmol/L (98-107); CO2 27 mmol/L (21-32); CREATININE 0.7 mg/dL (0.55-1.3); GLUCOSE,RANDOM 154 mg/dL (74-106); POTASSIUM 4.5 mmol/L (3.5-5.1); SODIUM 140 mmol/L (136-145)
[2017-12-17 07:05] LABS: BASO % 0.5 % (0-2.0); EOS % 0.1 % (0-4.5); HEMATOCRIT 32.5 % (35.4-49); LYMPH % 6.6 % (8-40); MCH 30.1 pg (25.7-33.7); MCHC 33.8 g/dl (32.0-35.9); MEAN CELL VOLUME 89.1 fl (80-96); MEAN PLT VOLUME 8.4 fl (7.5-11.1); MONO % 9.3 % (3.8-10.2); NEUT % 83.5 % (42.8-82.8); PLATELET COUNT 165 K/MM3 (134-434); RBC 3.65 M/mm3 (4.00-5.60); RDW 14.8 % (11.9-15.9)
--- NOTE | 2017-12-17 07:45 | PN ---
Progress Note (short form) - Note Progress Note: POD #1 Alert. Doing well. Hasn't been oob since surgery. Has minimal incisional tenderness. Adequate pain control with meds ordered. Denies n/v/f/c, CP, SOB. Last Vital Signs Temp Pulse Resp BP Pulse Ox 98.0 F 58 L 18 118/41 L 98 12/17/17 06:00 12/17/17 06:00 12/17/17 06:00 12/17/17 06:00 12/17/17 00:07 CBC, BMP 12/17/17 05:30 12/17/17 05:30 Gen: nad LLE: incisions clean, dry with smita intact. no hematoma. Foot warm. Palpable DP. Problem List - Problems (1) Popliteal aneurysm Assessment/Plan: POD #1 s/p Left femoral popliteal bypass with PTFE. Ligation popliteal aneurysm Doing well. OOB PT Incentive spirometer Pain management prn Can downgrade to floor at ICU discretion DC planning 12/18 Above plan discussed with Dr. Bassett and agrees Code(s): I72.4 - ANEURYSM OF ARTERY OF LOWER EXTREMITY
--- NOTE | 2017-12-17 08:12 | SURG ---
Surgery Certified Personal Chef Note Certified Personal Chef: Sharon Guerrier PA-C Date of Service: 12/17/17 Diagnosis: Left popliteal bypass Procedure: Left femoral popliteal bypass with PTFE. Ligation popliteal aneurysm I was present for the entirety of the operative procedure. For further detail, please refer to operative report. Visit type - Case Type Case Type: Scheduled - Emergency Emergency Visit: No - New patient This patient is new to me today: Yes Date on this admission: 12/17/17
--- NOTE | 2017-12-17 08:26 | CONSULT ---
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 History of Recent Travel: No Home Medications - Allergies Allergies/Adverse Reactions: Allergies Allergy/AdvReac Type Severity Reaction Status Date / Time Penicillins Allergy Severe "throat Verified 12/16/17 10:26 swells" sulfamethoxazole AdvReac Severe Verified 12/16/17 10:26 [From Bactrim] trimethoprim [From Bactrim] AdvReac Severe Verified 12/16/17 10:26 - Home Medications Home Medications: Ambulatory Orders Allopurinol [Zyloprim -] 300 mg PO DAILY 11/18/13 Aspirin Coated [Ecotrin -] 81 mg PO DAILY 11/18/13 Folic Acid - 1 mg PO DAILY 11/18/13 Propranolol HCl [Inderal LA] 80 mg PO HS 11/18/13 Ranitidine [Zantac -] 300 mg PO HS 11/18/13 [place]-3 Fatty Acids/Fish Oil [Fish Oil 1,000 mg Softgel] 2 each PO DAILY Psyllium Husk/Calcium Carb [Metamucil Plus Calcium Capsule] 5 each PO DAILY 10/09 Amlodipine Besylate 10 mg PO DAILY 12/15/17 Azilsartan Medoxomil [Edarbi] 80 mg PO DAILY 12/15/17 Budesonide/Formeterol Fumarate [SYMBICORT 80/4.5mcg -] 2 inh PO DAILY 12/15/17 Clopidogrel Bisulfate [Plavix -] 75 mg PO DAILY 12/15/17 Rosuvastatin [Crestor -] 10 mg PO DAILY 12/15/17 Family Disease History - Family Disease History Family Disease History: Other: Daughter (Colon cancer at age 34 ) Physical Exam Vital Signs: Vital Signs Temperature 98.0 F 12/17/17 06:00 Pulse Rate 58 L 12/17/17 06:00 Respiratory Rate 18 12/17/17 06:00 Blood Pressure 118/41 L 12/17/17 06:00 O2 Sat by Pulse Oximetry (%) 98 12/17/17 00:07 Labs: CBC, BMP 12/17/17 05:30 12/17/17 05:30 Problem List - Problems (1) Popliteal aneurysm Assessment/Plan: Operative Date: 12/16/17 Pre-Operative Diagnosis: Left popliteal bypass Operation: Left femoral popliteal bypass with PTFE. Ligation popliteal aneurysm Findings: Calcified femoral and below knee popliteal arteries, popliteal aneurysm Post-Operative Diagnosis: Same as Pre-op Surgeon: Ian Bassett Code(s): I72.4 - ANEURYSM OF ARTERY OF LOWER EXTREMITY (2) Autoimmune hepatitis Assessment/Plan: -stable -monitor as outpatient Code(s): K75.4 - AUTOIMMUNE HEPATITIS (3) COPD (chronic obstructive pulmonary disease) Assessment/Plan: -stable Code(s): J44.9 - CHRONIC OBSTRUCTIVE PULMONARY DISEASE, UNSPECIFIED (4) HTN (hypertension) Assessment/Plan: -Monitor off arb for now Code(s): I10 - ESSENTIAL (PRIMARY) HYPERTENSION (5) Bradycardia Assessment/Plan: -On inderal--monitor Code(s): R00.1 - BRADYCARDIA, UNSPECIFIED
[2017-12-17] MEDS ORDERED: PT OWN MED DRAWER 7, Y5N ONE ×2 (10:08→21:28)
[2017-12-17] MEDS: oxyCODONE HCL 5 MG TABLET PO PRN (10:14)
[2017-12-17] MEDS: PSYLLIUM 5.85 GM PACKET PO SCH (10:16)
[2017-12-17] MEDS: amLODIPine BESYLATE 10 MG TABLET (FP) PO SCH (10:16)
[2017-12-17] MEDS: FOLIC ACID 1 MG TABLET (FP) PO SCH (10:16)
[2017-12-17] MEDS: DOCUSATE SODIUM 100 MG CAPSULE (FP) PO SCH ×2 (10:16→21:55)
[2017-12-17] MEDS: ASPIRIN COATED 81 MG TABLET.EC PO SCH (10:16)
[2017-12-17] MEDS: CLOPIDOGREL BISULFATE 75 MG TABLET (FP) PO SCH (10:16)
[2017-12-17] MEDS: ALLOPURINOL 300 MG TABLET (FP) PO SCH (10:17)
--- NOTE | 2017-12-17 12:07 | EKG ---
Test Reason : Blood Pressure : / mmHG Vent. Rate : 055 BPM Atrial Rate : 055 BPM P-R Int : 176 ms QRS Dur : 138 ms QT Int : 494 ms P-R-T Axes : 053 -52 -21 degrees QTc Int : 472 ms SINUS BRADYCARDIA LEFT AXIS DEVIATION RIGHT BUNDLE BRANCH BLOCK ABNORMAL ECG WHEN COMPARED WITH ECG OF 16-DEC-2017 16:49, QT HAS LENGTHENED Confirmed by SALVADOR CHAMBERLAIN, JOSIE ([id number]) on 12/17/2017 12:07:09 PM Referred By: BECKY LEWIS Confirmed By:JOSIE FRANCO MD
--- NOTE | 2017-12-17 12:18 | EKG ---
Test Reason : Blood Pressure : / mmHG Vent. Rate : 046 BPM Atrial Rate : 046 BPM P-R Int : 000 ms QRS Dur : 136 ms QT Int : 472 ms P-R-T Axes : 051 -52 -44 degrees QTc Int : 413 ms SINUS BRADYCARDIA WITH MARKED SINUS ARRHYTHMIA RIGHT BUNDLE BRANCH BLOCK LEFT ANTERIOR FASCICULAR BLOCK BIFASCICULAR BLOCK T WAVE ABNORMALITY, CONSIDER LATERAL ISCHEMIA ABNORMAL ECG WHEN COMPARED WITH ECG OF 21-JUL-2017 14:56, VENT. RATE HAS DECREASED BY 25 BPM T WAVE INVERSION MORE EVIDENT IN INFERIOR LEADS T WAVE INVERSION NOW EVIDENT IN LATERAL LEADS Confirmed by JOSIE FRANCO MD ([id number]) on 12/17/2017 12:18:04 PM Referred By: Confirmed By:JOSIE FRANCO MD
[2017-12-17] MEDS: GENTAMICIN SO4 0.1% TOPICAL OINTMENT 15 GM/TUBE TUBE TP SCH ×2 (12:22→22:03)
[2017-12-17] MEDS: BUDESONIDE/FORMETEROL FUMARATE 80/4.5 mcg INHALER IH SCH (12:23)
--- NOTE | 2017-12-17 12:25 | PN ---
Teaching Attending Note Name of Resident: Jorge Jenkins ATTENDING PHYSICIAN STATEMENT I saw and evaluated the patient. I reviewed the resident's note and discussed the case with the resident. I agree with the resident's findings and plan as documented. SUBJECTIVE: Patient seen and examined in the ICU. Awake and alert. No CP or SOB. No acute events overnight. Intake & Output 12/14/17 12/15/17 12/16/17 12/17/17 23:59 23:59 23:59 23:59 Intake Total 2800 1625 Output Total 1600 1500 Balance 1200 125 Weight 205 lb 205 lb 151 lb 7.321 oz Last Vital Signs Temp Pulse Resp BP Pulse Ox 98 F 50 L 18 129/67 100 12/17/17 10:00 12/17/17 12:00 12/17/17 12:00 12/17/17 12:00 12/17/17 08:00 Active Medications Acetaminophen (Tylenol -) 650 mg PO Q6HPO [facility] Stop: 12/18/17 00:01 Last Admin: 12/17/17 06:10 Dose: 650 mg Allopurinol (Zyloprim -) 300 mg PO DAILY [facility] Last Admin: 12/17/17 10:17 Dose: 300 mg Amlodipine Besylate (Norvasc -) 10 mg PO DAILY [facility] Last Admin: 12/17/17 10:16 Dose: 10 mg Aspirin (Ecotrin -) 81 mg PO DAILY [facility] Last Admin: 12/17/17 10:16 Dose: 81 mg Budesonide/Formoterol Fumarate (Symbicort 80/4.5mcg -) 2 puff IH DAILY [facility] Clindamycin HCl (Cleocin -) 300 mg PO TID [facility] Clopidogrel Bisulfate (Plavix -) 75 mg PO DAILY [facility] Last Admin: 12/17/17 10:16 Dose: 75 mg Docusate Sodium (Colace -) 100 mg PO BID [facility] Last Admin: 12/17/17 10:16 Dose: 100 mg Folic Acid (Folic Acid -) 1 mg PO DAILY [facility] Last Admin: 12/17/17 10:16 Dose: 1 mg Gentamicin Sulfate (Garamycin 0.1% Ointment -) 1 applic TP BID [facility] Heparin Sodium (Porcine) (Heparin -) 5,000 unit SQ TID [facility] Last Admin: 12/17/17 06:11 Dose: 5,000 unit Non-Formulary Medication (Azilsartan Medoxomil [Edarbi]) 80 mg PO DAILY [facility] Oxycodone HCl (Roxicodone -) 5 mg PO Q6H PRN PRN Reason: PAIN LEVEL 1-5 Last Admin: 12/17/17 10:14 Dose: 5 mg Oxycodone HCl (Roxicodone -) 10 mg PO Q6H PRN PRN Reason: PAIN LEVEL 6-10 Propranolol HCl (Inderal La -) 80 mg PO [facility] Last Admin: 12/16/17 22:39 Dose: 80 mg Psyllium Hydrophilic Mucilloid (Metamucil (Sugar-Free) -) 5.85 gm PO DAILY [facility] Last Admin: 12/17/17 10:16 Dose: 5.85 gm Ranitidine HCl (Zantac -) 300 mg PO HS [facility] Last Admin: 12/16/17 22:39 Dose: 300 mg Rosuvastatin Calcium (Crestor -) 10 mg PO HS [facility] Last Admin: 12/16/17 22:39 Dose: 10 mg GENERAL: Awake, alert, and fully oriented, in no acute distress. HEAD: Normal with no signs of trauma. EYES: PERRLA, extraocular movements intact, sclera anicteric, conjunctiva clear. No lid lag. EARS, NOSE, THROAT: Oropharynx clear without exudates. Dry mucous membranes. NECK: Normal range of motion, supple without lymphadenopathy, JVD, or masses. LUNGS: CTA B/L with no wheezes, and no crackles. No accessory muscle use. HEART: RRR, normal S1 and S2 without murmur, rub or gallop. ABDOMEN: Soft, obese, nontender, not distended, normoactive bowel sounds, Reducible periumbilical hernia, (+) midabdominal vertical scar. MUSCULOSKELETAL: No CVA tenderness. UPPER EXTREMITIES:No peripheral edema. LOWER EXTREMITIES: 2+ pulses, warm, well-perfused. No calf tenderness. No peripheral edema. Left leg wound dressing c/d/i NEUROLOGICAL: Non-focal PSYCHIATRIC: Cooperative. Good eye contact. Appropriate mood and affect. SKIN: Warm, dry, normal turgor, no rashes or lesions noted. Laboratory Results - last 24 hr 12/16/17 12/16/17 12/17/17 17:10 17:10 05:30 WBC 13.0 H 10.0 RBC 4.37 3.65 L Hgb 13.0 11.0 L Hct 39.4 32.5 L D MCV 90.2 89.1 MCH 29.8 30.1 MCHC 33.0 33.8 RDW 15.4 14.8 Plt Count 169 D 165 MPV 8.3 D 8.4 Absolute Neuts (auto) 11.7 H 8.3 H Neutrophils % 90.0 H 83.5 H Lymphocytes % 5.7 L D 6.6 L Monocytes % 3.6 L 9.3 D Eosinophils % 0.4 0.1 Basophils % 0.3 0.5 Nucleated RBC % 0 0 Sodium 141 Potassium 4.4 Chloride 107 Carbon Dioxide 26 Anion Gap 8 BUN 15 Creatinine 0.8 Creat Clearance w eGFR > 60 Random Glucose 143 H Calcium 8.4 L 12/17/17 05:30 WBC RBC Hgb Hct MCV MCH MCHC RDW Plt Count MPV Absolute Neuts (auto) Neutrophils % Lymphocytes % Monocytes % Eosinophils % Basophils % Nucleated RBC % Sodium 140 Potassium 4.5 Chloride 106 Carbon Dioxide 27 Anion Gap 7 L BUN 13 Creatinine 0.7 Creat Clearance w eGFR > 60 Random Glucose 154 H Calcium 8.1 L ASSESSMENT/PLAN: POD #1: Left femoral popliteal bypass with PTFE and ligation of popliteal aneurysm PAD CAD HTN HPL Bradycardia Pain control O2 as needed Incentive Spirometry VTE prophylaxis PO as tolerated Doppler checks Monitor UOP Symbicort BID ASA / Plavix Cardiac Telemetry monitoring Dr Barajas
--- NOTE | 2017-12-17 12:32 | PN ---
Physical Exam: SUBJECTIVE: Patient seen and examined at bedside. He has no complaints, feels good, and is asking when he will be granted permission to leave the hospital. Denies chest pain, SOB, difficulty breathing, palpitations, new rashes, fevers, back pain. OBJECTIVE: Vital Signs Period Temp Pulse Resp BP Sys/Dotson Pulse Ox Last 24 Hr 97.4 F-98.0 F 44-78 10-20 109-147/41-87 94-100 GENERAL: The patient is awake, alert, and fully oriented, in no acute distress. HEAD: Normal with no signs of trauma. EYES: PERRL, extraocular movements intact, sclera anicteric, conjunctiva clear. No ptosis. ENT: Ears normal, nares patent, oropharynx clear without exudates, moist mucous membranes. NECK: Trachea midline, full range of motion, supple. LUNGS: Breath sounds equal, clear to auscultation bilaterally, no wheezes, no crackles, no accessory muscle use. HEART: bradycardic rate and regular rhythm, S1, S2. ABDOMEN: Soft, nontender, nondistended, normoactive bowel sounds, no guarding, no rebound, no hepatosplenomegaly, no masses. UPPER EXTREMITIES: 2+ pulses, warm, well-perfused, no edema. LOWER EXTREMITIES: 2+ pulses, warm, well-perfused. No calf tenderness. No peripheral edema. Left leg wound dressing c/d/i NEUROLOGICAL: Cranial nerves II through XII grossly intact. Normal speech, gait not observed. PSYCH: Normal mood, normal affect. SKIN: Warm, dry, normal turgor, no rashes or lesions noted Laboratory Results - last 24 hr 12/16/17 12/16/17 12/17/17 17:10 17:10 05:30 WBC 13.0 H 10.0 RBC 4.37 3.65 L Hgb 13.0 11.0 L Hct 39.4 32.5 L D MCV 90.2 89.1 MCH 29.8 30.1 MCHC 33.0 33.8 RDW 15.4 14.8 Plt Count 169 D 165 MPV 8.3 D 8.4 Absolute Neuts (auto) 11.7 H 8.3 H Neutrophils % 90.0 H 83.5 H Lymphocytes % 5.7 L D 6.6 L Monocytes % 3.6 L 9.3 D Eosinophils % 0.4 0.1 Basophils % 0.3 0.5 Nucleated RBC % 0 0 Sodium 141 Potassium 4.4 Chloride 107 Carbon Dioxide 26 Anion Gap 8 BUN 15 Creatinine 0.8 Creat Clearance w eGFR > 60 Random Glucose 143 H Calcium 8.4 L 12/17/17 05:30 WBC RBC Hgb Hct MCV MCH MCHC RDW Plt Count MPV Absolute Neuts (auto) Neutrophils % Lymphocytes % Monocytes % Eosinophils % Basophils % Nucleated RBC % Sodium 140 Potassium 4.5 Chloride 106 Carbon Dioxide 27 Anion Gap 7 L BUN 13 Creatinine 0.7 Creat Clearance w eGFR > 60 Random Glucose 154 H Calcium 8.1 L Active Medications Generic Name Dose Route Start Last Admin Trade Name Freq PRN Reason Stop Dose Admin Acetaminophen 650 mg 12/16/17 18:00 12/17/17 12:21 Tylenol - PO 12/18/17 00:01 650 mg Q6HPO [facility] Administration Allopurinol 300 mg 12/17/17 10:00 12/17/17 10:17 Zyloprim - PO 300 mg DAILY [facility] Administration Amlodipine Besylate 10 mg 12/17/17 10:00 12/17/17 10:16 Norvasc - PO 10 mg DAILY [facility] Administration Aspirin 81 mg 12/17/17 10:00 12/17/17 10:16 Ecotrin - PO 81 mg DAILY [facility] Administration Budesonide/Formoterol Fumarate 2 puff 12/17/17 10:00 12/17/17 12:23 Symbicort 80/4.5mcg - IH 2 puff DAILY [facility] Administration Clindamycin HCl 300 mg 12/17/17 14:00 Cleocin - PO TID [facility] Clopidogrel Bisulfate 75 mg 12/17/17 10:00 12/17/17 10:16 Plavix - PO 75 mg DAILY [facility] Administration Docusate Sodium 100 mg 12/16/17 22:00 12/17/17 10:16 Colace - PO 100 mg BID [facility] Administration Folic Acid 1 mg 12/17/17 10:00 12/17/17 10:16 Folic Acid - PO 1 mg DAILY [facility] Administration Gentamicin Sulfate 1 applic 12/17/17 10:00 12/17/17 12:22 Garamycin 0.1% Ointment - TP 1 applic BID [facility] Administration Heparin Sodium (Porcine) 5,000 unit 12/16/17 22:00 12/17/17 06:11 Heparin - SQ 5,000 unit TID [facility] Administration Non-Formulary Medication 80 mg 12/17/17 10:00 Azilsartan Medoxomil [Edarbi] PO DAILY [facility] Oxycodone HCl 5 mg 12/16/17 16:20 12/17/17 10:14 Roxicodone - PO 5 mg Q6H PRN Administration PAIN LEVEL 1-5 Oxycodone HCl 10 mg 12/16/17 16:20 Roxicodone - PO Q6H PRN PAIN LEVEL 6-10 Propranolol HCl 80 mg 12/16/17 22:00 12/16/17 22:39 Inderal La - PO 80 mg HS [facility] Administration Psyllium Hydrophilic Mucilloid 5.85 gm 12/17/17 10:00 12/17/17 10:16 Metamucil (Sugar-Free) - PO 5.85 gm DAILY [facility] Administration Ranitidine HCl 300 mg 12/16/17 22:00 12/16/17 22:39 Zantac - PO 300 mg HS [facility] Administration Rosuvastatin Calcium 10 mg 12/16/17 22:00 12/16/17 22:39 Crestor - PO 10 mg HS [facility] Administration ASSESSMENT/PLAN: Assessment: 77 year old male who presented to the hospital for scheduled Left femoral popliteal bypass with PTFE by Dr. Bassett. Patient admitted to ICU for overnight monitoring and management. He is now POD #1. No fevers, no complaints. Patient doing well since surgery. Minimal incisional tenderness since surgery. On Re-assessment patient endorsed feeling significant lightheadedness. VS remarkable for HR dropping as low as 30. Patient will remain in the ICU for further monitoring. - incentive spirometer. - DVT prophylaxis. Plan: Post Surgery: -Pain control with Oxy and tylenol - Continue home meds==> Aspirin, Plavix, Crestor Cardiovascular: - Doppler check for pulses Q2h - Monitor BP - Frequent EKGs Pulmonary: - Incentive spirometry - Home med ==> symbicort Gastro: - Zantac F/E/N: - NS @125mls/hr - Strict Is and Os - Clear liquid diet DVT prophylaxis: -Heparin 5000 units sq TID for DVT Code status: - Full Code Dispo - Continue to monitor in ICU. Visit type - Emergency Visit Emergency Visit: Yes ED Registration Date: 10/24/18 Care time: The patient presented to the Emergency Department on the above date and was hospitalized for further evaluation of their emergent condition. - New Patient This patient is new to me today: Yes Date on this admission: 12/17/17 - Critical Care Critical Care patient: Yes Total Critical Care Time (in minutes): 36 Critical Care Statement: The care of this patient involved high complexity decision making to prevent further life threatening deterioration of the patient 's condition and/or to evaluate & treat vital organ system(s) failure or risk of failure.
[2017-12-17] MEDS: CLINDAMYCIN HCL 150 MG CAPSULE (FP) PO SCH ×2 (13:12→22:30)
--- NOTE | 2017-12-17 14:22 | PN ---
Progress Note (short form) - Note Progress Note: ANESTHESIA POSTOP 77 YO MALE POD#1 S/P L FEM/POP DOING WELL, SITTING IN BED. NO COMPLAINTS. TOLERATING PO VSS, AFEBRILE CONTINUE CURRENT CARE, ENCOURAGED IS AND AMBULATION WHEN ORDERED BY SURGICAL TEAM
--- NOTE | 2017-12-17 14:40 | OP ---
DATE OF OPERATION: 12/16/2017 SURGEON: Ian Bassett MD CLINICAL PSYCHOLOGIST: THANG Velazquez PROCEDURE: Left femoral popliteal bypass with polytetrafluorethylene graft, ligation of popliteal aneurysm. 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 ANESTHESIA: General. ANESTHESIOLOGIST: Long Mcdonnell MD OPERATIVE FINDINGS: There was severe atherosclerotic disease of the left femoral popliteal arteries. There was a popliteal aneurysm measuring approximately 3 cm in diameter. Preoperative angiography revealed multiple calcified stenoses of the left superficial femoral artery of greater than 80%-90%. Runoff to both anterior and posterior tibial arteries was intact. OPERATIVE PROCEDURE: Following routine patient identification, side and site verification, general anesthesia was induced. Elliott catheter was placed. The left leg and groin were prepped with ChloraPrep. A time-out was performed. Skin incision was made in the left groin extending down from the previous scar from his previous aortic aneurysm repair and femoral bypass. Subcutaneous tissue was divided using cautery for hemostasis. The proximal superficial femoral artery was exposed and mobilized from the surrounding tissues. It encircled distally with a Vessel Loop. Proximal dissected was then carried out up onto the left femoral limb of the aortic bypass graft. This was mobilized on either side. The deep femoral artery was also mobilized and secured. The wound was packed with moist gauze. An incision was then made in the medial aspect of the upper calf from the knee distally. Subcutaneous tissues were divided using cautery for hemostasis. The popliteal space was entered. The below-knee popliteal artery a mobilized using cautery on the overlying musculature. The artery was encircled proximally and distally with Vessel Loops. An incision was then made in the medial distal thigh and the subcutaneous tissues and muscle fascia incised with cautery. The sartorius muscle was reflected posteriorly, and the popliteal space was entered. The popliteal artery above the knee was mobilized and an umbilical tape passed around it for later ligation. A metal overlock hemmer was then passed from the calf incision proximally between the head of the gastrocnemius until it exited at the groin incision. An 8-mm ring PTFE stretch graft was passed through the overlock hemmer. The patient was systemically heparinized. Popliteal artery was occluded with bulldog clamps, and a longitudinal arteriotomy measuring approximately 10 mm was made. The end of the bypass graft was beveled and anastomosed to the side of the artery with running sutures of 6-0 Prolene. Prior to completion of the suture line, the graft was occluded with a clamp, and the artery was allowed to back bleed and flush. The vessel was filled with heparin solution. The suture line was completed and then the arteries were released. Bleeding from the suture line was controlled with Gelfoam and thrombin and later FloSeal. The leg was extended, and the graft was pulled taught in its tunnel. The left femoral artery inflow graft was occluded with a vascular clamp, and the superficial femoral artery and deep femoral arteries were occluded with vascular clamp and Vessel Loop. Arteriotomy was made in the proximal superficial femoral artery measured approximately 10 mm in length. There was dense, calcified plaque present in the vessel. Inflow and outflow were checked, and the lumen was filled with heparin solution. The bypass graft was then trimmed for length and beveled and anastomosed to the side of the artery with running sutures of 5-0 Prolene. Prior to completion of the suture line, the artery was allowed to back bleed and flush, and the bypass graft was allowed to flush. The lumen was filled with heparin solution, and the suture line was completed. All clamps were removed. There was good flow through both anastomoses. A distal posterior tibial pulse was palpable. Gelfoam, thrombin, and FloSeal were placed around the suture lines to control any bleeding, and the patient received Protamine to reverse the heparin, which had been given prior to clamping the vessels. The popliteal artery above and below the knee was ligated with umbilical tape to exclude the aneurysm from flow. When hemostasis was adequate, the wounds were irrigated and closed with interrupted sutures of 3-0 Vicryl and subcutaneous tissues and skin smita. Sterile dressings were applied, and the patient was taken to the recovery room in stable condition. Eugene [id number] MTDD
--- NOTE | 2017-12-17 16:59 | EKG ---
Test Reason : Blood Pressure : / mmHG Vent. Rate : 046 BPM Atrial Rate : 046 BPM P-R Int : 000 ms QRS Dur : 136 ms QT Int : 454 ms P-R-T Axes : 000 -22 -50 degrees QTc Int : 397 ms SINUS BRADYCARDIA RIGHT BUNDLE BRANCH BLOCK SEPTAL INFARCT , AGE UNDETERMINED ABNORMAL ECG WHEN COMPARED WITH ECG OF 17-DEC-2017 09:09, QRS AXIS SHIFTED RIGHT SEPTAL INFARCT IS NOW PRESENT QT HAS SHORTENED Confirmed by SALVADOR CHAMBERLAIN, JOSIE ([id number]) on 12/17/2017 4:58:45 PM Referred By: Confirmed By:JOSIE FRANCO MD
--- NOTE | 2017-12-17 19:11 | CONS ---
CARDIOLOGY CONSULTATION DATE OF CONSULTATION: DATE OF DICTATION: 12/17/2017 LOCATION: CCU. 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 Patient underwent a left femoropopliteal bypass and ligation of a popliteal aneurysm. Postoperatively, patient was found to be bradycardic and with suggestion of junctional escape rhythm as noted on December 17 at 11:42 a.m. There is no history of lightheadedness, dizziness, presyncope, or syncope. No history of chest pain or discomfort. No history of dyspnea, paroxysmal nocturnal dyspnea, or orthopnea. Patient has chronic intraventricular conduction delay. PAST HISTORY: As mentioned in the history of present illness. SURGICAL HISTORY: Status post right carotid endarterectomy. Status post abdominal aortic aneurysm resection. Status post bilateral cataract extraction and intraocular lens implantation. Status post left lower lobectomy for carcinoma. Status post tonsillectomy. Status post amputation of the left 2nd toe. SOCIAL HISTORY: Retired [employer], is , has 4 daughters who are healthy. Used to smoke 1-1/2 packs of cigarettes per day from the age of 15 and stopped when he was 60 years of age. History of alcohol use but currently has a social drink. Drinks 2 cups of coffee. FAMILY HISTORY: Mother at the age of 76 apparently related to a myocardial infarction. She was a diabetic. Father also of a myocardial infarction at the age of 78. He had history of hypertension. Has 2 brothers and 2 sisters. One of the sisters at age 54 related to an automobile accident. The other siblings are alive. ALLERGIES: 1. PENICILLIN. 2. BACTRIM. CURRENT MEDICATIONS: 1. Azilsartan 80 mg p.o. daily. 2. Symbicort 2 inhalations daily. 3. Tylenol 650 mg p.o. q.6 hours. 4. Cleocin 300 mg p.o. t.i.d. 5. Gentamicin sulfate 0.1% ointment apply b.i.d. 6. Heparin 5000 units subcutaneous t.i.d. 7. Allopurinol 300 mg p.o. daily. 8. Propranolol LA 80 mg p.o. daily. 9. Colace 100 mg b.i.d. 10. Metamucil 5.85 g p.o. daily. 11. Amlodipine 10 mg p.o. daily. 12. Zantac 300 mg p.o. daily. 13. 10 mg p.o. daily. 14. Aspirin 81 mg p.o. daily. 15. Oxycodone 5 mg q.6 hours p.r.n. 16. Clopidogrel 75 mg p.o. daily. 17. Folic acid 1 mg p.o. daily. REVIEW OF SYSTEMS: Constitutional: No history of chills, fever, or night sweats reported. No history of unintentional weight loss. HEENT: Denies having headaches, diplopia, or blurred vision. No history of epistaxis, hoarseness, tinnitus, or deafness reported. Cardiovascular: See history of present illness. Respiratory: History of COPD. No cough or expectoration. Denies having hemoptysis. Gastrointestinal: No history of nausea, vomiting, melena, or hematemesis. Neurological: No history of seizures, syncope, lightheadedness, or focal weakness. Musculoskeletal: No history of myalgias or arthralgias. PHYSICAL EXAMINATION: General: A 77-year-old gentleman who was in no acute distress. No pallor, cyanosis, clubbing, or jaundice. Vital Signs: Blood pressure 121/47 mmHg. Pulse 55 beats per minute and regular. Temperature 98.0 degrees Fahrenheit. Respirations 15 per minute. Neck: Supple. No jugular venous distention. Carotids were 2+. Upstrokes were normal. No bruits were appreciated, and no thyromegaly was present. There is a well-healed right carotid endarterectomy scar. There were faint bilateral bruits. No thyromegaly was present. Heart: PMI was in the fifth intercostal space. No heaves or thrills. Heart sounds were distant. No murmur or gallops were appreciated. Lungs: Clear on auscultation. Abdomen: Soft, protuberant, and nontender. No hepatosplenomegaly or palpable masses were felt. A well-healed midline surgical scar with an incisional hernia of moderate size. No bruits were heard. Bowel sounds were present. Extremities: No calf tenderness. Right femoral pulse was 1+. Left femoral pulse was 2+. Left dorsalis pedis was bounding. Posterior tibial was weak. Right dorsalis pedis and posterior tibial pulse were not palpable. Left foot was cooler than right foot. LABORATORY DATA: ECG of December 13: Sinus bradycardia at 46 beats per minute. Left anterior hemiblock and right bundle branch block. Q wave in V2. Anteroseptal wall myocardial infarction of indeterminate age cannot be excluded. Nonspecific ST and T-wave abnormalities. Compare to earlier ECG: Decrease in heart rate. There were ST and T abnormalities were more pronounced than the ECG done at 1407 hours. CBC: WBC count 10,000, hemoglobin 11.0 g/dL, platelet count 165,000. Differential: Neutrophils 83.5%, lymphocytes 6.6%, monocytes 9.3%, eosinophils 0.1%, basophils 0.5%. Chemistry December 17: Sodium 140, potassium 4.5, chloride 106, CO2 of 27. BUN 13, creatinine 0.7 mg/dL. Random glucose 154 mg/dL. Calcium 8.1 mg/dL. X-ray chest was not available. Patient was advised to hold his dorsal on several locations, and the heart rate increased to 63 beats per minute, revealing normal chronotropy. IMPRESSION: 1. Sinus bradycardia with transient escape beats; etiology: A. Secondary to beta-blockade. B. Residual effects of anesthetics. 2. Hypertension, hypertensive cardiovascular disease; currently normotensive. 3. Hypercholesterolemia. 4. Bifascicular block. 5. Hyperuricemia, status post gout. 6. Gastroesophageal reflux disease. 7. Chronic obstructive pulmonary disease. 8. Benign essential tremors. 9. Abdominal incisional hernia. 10. Status post abdominal aortic aneurysm resection. 11. Status post carcinoma of the lung. 12. Status post right carotid endarterectomy. 13. Recent resection of popliteal aneurysm and femoropopliteal bypass. RECOMMENDATIONS: 1. Patient has an appropriate chronotropic response and would suggest that the dose of Inderal reduced from 80 to 40 mg daily and if necessary it could be tapered off. Inderal LA was initiated for benign essential tremors. 2. Magnesium level. 3. Follow up basic metabolic profile. 4. Patient will require a Holter to exclude the possibility of sick sinus syndrome once he is discharged. 5. Follow up ECG. 6. Troponin levels. 7. X-ray chest, portable. PROGNOSIS: Guarded. Thank you for your referral. Yours sincerely, GIA WOODY M.D. [id number]
[2017-12-17 20:21] LABS: MAGNESIUM 1.8 mg/dL (1.8-2.4)
[2017-12-17] MEDS: ROSUVASTATIN CA 10 MG TABLET (FP) PO SCH (21:54)
[2017-12-17] MEDS: RANITIDINE HCL 150 MG TABLET (FP) PO SCH (21:55)
[2017-12-17] MEDS ORDERED: CHLORHEXIDINE GLUCONATE 4% CLEANSER FOR DECOLONIZATION TP SCH (22:00)
[2017-12-17] MEDS: MUPIROCIN 2% TOPICAL OINTMENT FOR DECOLONIZATION NS SCH (22:02)
[2017-12-18] MEDS: ACETAMINOPHEN 325 MG TABLET (FP) PO SCH
[2017-12-18] MEDS: CLINDAMYCIN HCL 150 MG CAPSULE (FP) PO SCH ×3 (06:30→23:49)
[2017-12-18] MEDS: HEPARIN NA (PORCINE) 5,000 UNITS/ML 1ML VIAL SQ SCH ×3 (06:30→22:52)
[2017-12-18 06:38] LABS: BASO % 0.4 % (0-2.0); EOS % 0.8 % (0-4.5); HEMATOCRIT 34.4 % (35.4-49); HEMOGLOBIN 11.5 GM/dL (11.7-16.9); LYMPH % 11.8 % (8-40); MCH 29.9 pg (25.7-33.7); MCHC 33.4 g/dl (32.0-35.9); MEAN CELL VOLUME 89.4 fl (80-96); MONO % 12.4 % (3.8-10.2); NEUT % 74.6 % (42.8-82.8); PLATELET COUNT 160 K/MM3 (134-434); RBC 3.85 M/mm3 (4.00-5.60); RDW 15.1 % (11.9-15.9); WHITE BLOOD COUNT 10.4 K/mm3 (4.0-10.0)
[2017-12-18 07:41] LABS: ALBUMIN 3.4 g/dl (3.4-5.0); ALK PHOS 70 U/L (45-117); ANION GAP 8 MMOL/L (8-16); BILIRUBIN,TOTAL 0.6 mg/dL (0.2-1); BLOOD UREA NITROGEN 12 mg/dL (7-18); CALCIUM 8.7 mg/dL (8.5-10.1); CHLORIDE 104 mmol/L (98-107); CO2 28 mmol/L (21-32); CREATININE 0.8 mg/dL (0.55-1.3); GLUCOSE,RANDOM 122 mg/dL (74-106); MAGNESIUM 2.1 mg/dL (1.8-2.4); POTASSIUM 4.2 mmol/L (3.5-5.1); SGOT/AST 20 U/L (15-37); SGPT/ALT 21 U/L (13-61); SODIUM 140 mmol/L (136-145); TOT PROT 6.2 g/dl (6.4-8.2)
[2017-12-18] MEDS ORDERED: PT OWN MED DRAWER 7, Y5N ONE ×2 (08:59→20:53)
[2017-12-18] MEDS: MUPIROCIN 2% TOPICAL OINTMENT FOR DECOLONIZATION NS SCH (09:09)
[2017-12-18] MEDS: ASPIRIN COATED 81 MG TABLET.EC PO SCH (09:10)
[2017-12-18] MEDS: FOLIC ACID 1 MG TABLET (FP) PO SCH (09:10)
[2017-12-18] MEDS: DOCUSATE SODIUM 100 MG CAPSULE (FP) PO SCH ×2 (09:10→22:51)
[2017-12-18] MEDS: amLODIPine BESYLATE 10 MG TABLET (FP) PO SCH (09:11)
[2017-12-18] MEDS: PSYLLIUM 5.85 GM PACKET PO SCH (09:11)
[2017-12-18] MEDS: ALLOPURINOL 300 MG TABLET (FP) PO SCH (09:11)
[2017-12-18] MEDS: CLOPIDOGREL BISULFATE 75 MG TABLET (FP) PO SCH (09:11)
[2017-12-18] MEDS: GENTAMICIN SO4 0.1% TOPICAL OINTMENT 15 GM/TUBE TUBE TP SCH ×2 (09:12→23:50)
[2017-12-18] MEDS: BUDESONIDE/FORMETEROL FUMARATE 80/4.5 mcg INHALER IH SCH (09:12)
[2017-12-18] MEDS: oxyCODONE HCL 5 MG TABLET PO PRN (09:19)
--- NOTE | 2017-12-18 09:25 | PN ---
Progress Note, Physician - Current Medication List Current Medications: Active Medications Allopurinol (Zyloprim -) 300 mg PO DAILY REPLACED BY [facility] Last Admin: 12/18/17 09:11 Dose: 300 mg Amlodipine Besylate (Norvasc -) 10 mg PO DAILY REPLACED BY [facility] Last Admin: 12/18/17 09:11 Dose: 10 mg Aspirin (Ecotrin -) 81 mg PO DAILY REPLACED BY [facility] Last Admin: 12/18/17 09:10 Dose: 81 mg Budesonide/Formoterol Fumarate (Symbicort 80/4.5mcg -) 2 puff IH DAILY REPLACED BY [facility] Last Admin: 12/18/17 09:12 Dose: 2 puff Chlorhexidine Gluconate (Hibiclens For Decolonization -) 1 applic TP HS REPLACED BY [facility] Last Admin: 12/17/17 21:59 Dose: 1 applic Clindamycin HCl (Cleocin -) 300 mg PO TID REPLACED BY [facility] Last Admin: 12/18/17 06:30 Dose: 300 mg Clopidogrel Bisulfate (Plavix -) 75 mg PO DAILY REPLACED BY [facility] Last Admin: 12/18/17 09:11 Dose: 75 mg Docusate Sodium (Colace -) 100 mg PO BID REPLACED BY [facility] Last Admin: 12/18/17 09:10 Dose: 100 mg Folic Acid (Folic Acid -) 1 mg PO DAILY REPLACED BY [facility] Last Admin: 12/18/17 09:10 Dose: 1 mg Gentamicin Sulfate (Garamycin 0.1% Ointment -) 1 applic TP BID REPLACED BY [facility] Last Admin: 12/18/17 09:12 Dose: 1 applic Heparin Sodium (Porcine) (Heparin -) 5,000 unit SQ TID REPLACED BY [facility] Last Admin: 12/18/17 06:30 Dose: 5,000 unit Mupirocin (Bactroban Ointment (For Decolonization) -) 1 applic NS BID REPLACED BY [facility] Stop: 12/22/17 21:59 Last Admin: 12/18/17 09:09 Dose: 1 applic Non-Formulary Medication (Azilsartan Medoxomil [Edarbi]) 80 mg PO DAILY REPLACED BY [facility] Oxycodone HCl (Roxicodone -) 5 mg PO Q6H PRN PRN Reason: PAIN LEVEL 1-5 Last Admin: 12/18/17 09:19 Dose: 5 mg Oxycodone HCl (Roxicodone -) 10 mg PO Q6H PRN PRN Reason: PAIN LEVEL 6-10 Propranolol HCl (Inderal -) 20 mg PO BID REPLACED BY [facility] Last Admin: 12/18/17 09:10 Dose: 20 mg Psyllium Hydrophilic Mucilloid (Metamucil (Sugar-Free) -) 5.85 gm PO DAILY REPLACED BY [facility] Last Admin: 12/18/17 09:11 Dose: 5.85 gm Ranitidine HCl (Zantac -) 300 mg PO [facility] Last Admin: 12/17/17 21:55 Dose: 300 mg Rosuvastatin Calcium (Crestor -) 10 mg PO [facility] Last Admin: 12/17/17 21:54 Dose: 10 mg - Objective Vital Signs: Vital Signs Temperature 97.8 F 12/18/17 08:00 Pulse Rate 60 12/18/17 08:00 Respiratory Rate 16 12/18/17 08:00 Blood Pressure 157/76 12/18/17 08:00 O2 Sat by Pulse Oximetry (%) 98 12/18/17 08:00 Cardiovascular: Yes: Regular Rate and Rhythm Respiratory: Yes: Regular, CTA Bilaterally Gastrointestinal: Yes: Normal Bowel Sounds, Soft Labs: CBC, BMP 12/18/17 05:30 12/18/17 05:30 Problem List - Problems (1) Popliteal aneurysm Assessment/Plan: Operative Date: 12/16/17 Pre-Operative Diagnosis: Left popliteal bypass Operation: Left femoral popliteal bypass with PTFE. Ligation popliteal aneurysm Findings: Calcified femoral and below knee popliteal arteries, popliteal aneurysm Post-Operative Diagnosis: Same as Pre-op Surgeon: Ian Bassett Code(s): I72.4 - ANEURYSM OF ARTERY OF LOWER EXTREMITY (2) Autoimmune hepatitis Assessment/Plan: -stable -monitor as outpatient Code(s): K75.4 - AUTOIMMUNE HEPATITIS (3) COPD (chronic obstructive pulmonary disease) Assessment/Plan: -stable Code(s): J44.9 - CHRONIC OBSTRUCTIVE PULMONARY DISEASE, UNSPECIFIED (4) HTN (hypertension) Assessment/Plan: -Monitor off arb for now Code(s): I10 - ESSENTIAL (PRIMARY) HYPERTENSION (5) Bradycardia Assessment/Plan: -On inderal 20 bid--monitor as outpatient Code(s): R00.1 - BRADYCARDIA, UNSPECIFIED Assessment/Plan -DC HOME ONCE CLEARED BY SURGERY
--- NOTE | 2017-12-18 11:17 | PN ---
Progress Note (short form) - Note Progress Note: 77yo M s/p Lt ileo-pop bypass with graft. Pt seen and examined at bedside. Pt still in ICU after having otis episode to the 40s yesterday, but has been completely stable since then. Pt denies complaints except for Left leg pain. Pt denies any weakness or numbness in his leg. Last Vital Signs Temp Pulse Resp BP Pulse Ox 97.8 F 64 16 118/61 98 12/18/17 10:00 12/18/17 10:00 12/18/17 10:00 12/18/17 10:00 12/18/17 08:00 CBC, BMP 12/18/17 05:30 12/18/17 05:30 PE: Gen: A&O x3 Resp: breathing comfortably Ext: LLE shows +2 pedal pulse, incisions are clean and dry no erythema or discharge. Problem List - Problems (1) PAD (peripheral artery disease) Assessment/Plan: Plan -pt appears to be doing well, recommend transfer to floor. -continue aspirin/plavix -pain management Code(s): I73.9 - PERIPHERAL VASCULAR DISEASE, UNSPECIFIED
--- NOTE | 2017-12-18 12:55 | PN ---
Teaching Attending Note Name of Resident: Jorge Jenkins ATTENDING PHYSICIAN STATEMENT I saw and evaluated the patient. I reviewed the resident's note and discussed the case with the resident. I agree with the resident's findings and plan as documented. SUBJECTIVE: Patient seen and examined in the ICU. Awake and alert. No CP or SOB. Noted that he had transient drop in BP and became diaphoretic. Now feels back to baseline. Intake & Output 12/15/17 12/16/17 12/17/17 12/18/17 23:59 23:59 23:59 23:59 Intake Total 2800 2125 Output Total 1600 2350 1600 Balance 1200 -225 -1600 Weight 205 lb 205 lb 151 lb 7.321 oz 151 lb 14.376 oz Last Vital Signs Temp Pulse Resp BP Pulse Ox 97.8 F 66 16 141/63 98 12/18/17 10:00 12/18/17 11:46 12/18/17 11:46 12/18/17 11:46 12/18/17 08:00 Active Medications Allopurinol (Zyloprim -) 300 mg PO DAILY [facility] Last Admin: 12/18/17 09:11 Dose: 300 mg Amlodipine Besylate (Norvasc -) 10 mg PO DAILY [facility] Last Admin: 12/18/17 09:11 Dose: 10 mg Aspirin (Ecotrin -) 81 mg PO DAILY [facility] Last Admin: 12/18/17 09:10 Dose: 81 mg Budesonide/Formoterol Fumarate (Symbicort 80/4.5mcg -) 2 puff IH DAILY [facility] Last Admin: 12/18/17 09:12 Dose: 2 puff Chlorhexidine Gluconate (Hibiclens For Decolonization -) 1 applic TP HS [facility] Last Admin: 12/17/17 21:59 Dose: 1 applic Clindamycin HCl (Cleocin -) 300 mg PO TID [facility] Last Admin: 12/18/17 06:30 Dose: 300 mg Clopidogrel Bisulfate (Plavix -) 75 mg PO DAILY [facility] Last Admin: 12/18/17 09:11 Dose: 75 mg Docusate Sodium (Colace -) 100 mg PO BID [facility] Last Admin: 12/18/17 09:10 Dose: 100 mg Folic Acid (Folic Acid -) 1 mg PO DAILY [facility] Last Admin: 12/18/17 09:10 Dose: 1 mg Gentamicin Sulfate (Garamycin 0.1% Ointment -) 1 applic TP BID [facility] Last Admin: 12/18/17 09:12 Dose: 1 applic Heparin Sodium (Porcine) (Heparin -) 5,000 unit SQ TID [facility] Last Admin: 12/18/17 06:30 Dose: 5,000 unit Mupirocin (Bactroban Ointment (For Decolonization) -) 1 applic NS BID [facility] Stop: 12/22/17 21:59 Last Admin: 12/18/17 09:09 Dose: 1 applic Non-Formulary Medication (Azilsartan Medoxomil [Edarbi]) 80 mg PO DAILY [facility] Oxycodone HCl (Roxicodone -) 5 mg PO Q6H PRN PRN Reason: PAIN LEVEL 1-5 Last Admin: 12/18/17 09:19 Dose: 5 mg Oxycodone HCl (Roxicodone -) 10 mg PO Q6H PRN PRN Reason: PAIN LEVEL 6-10 Propranolol HCl (Inderal -) 20 mg PO BID [facility] Last Admin: 12/18/17 09:10 Dose: 20 mg Psyllium Hydrophilic Mucilloid (Metamucil (Sugar-Free) -) 5.85 gm PO DAILY [facility] Last Admin: 12/18/17 09:11 Dose: 5.85 gm Ranitidine HCl (Zantac -) 300 mg PO HS [facility] Last Admin: 12/17/17 21:55 Dose: 300 mg Rosuvastatin Calcium (Crestor -) 10 mg PO [facility] Last Admin: 12/17/17 21:54 Dose: 10 mg GENERAL: Awake, alert, and fully oriented, in no acute distress. HEAD: Normal with no signs of trauma. EYES: PERRLA, extraocular movements intact, sclera anicteric, conjunctiva clear. No lid lag. EARS, NOSE, THROAT: Oropharynx clear without exudates. Dry mucous membranes. NECK: Normal range of motion, supple without lymphadenopathy, JVD, or masses. LUNGS: CTA B/L with no wheezes, and no crackles. No accessory muscle use. HEART: RRR, normal S1 and S2 without murmur, rub or gallop. ABDOMEN: Soft, obese, nontender, not distended, normoactive bowel sounds, Reducible periumbilical hernia, (+) midabdominal vertical scar. MUSCULOSKELETAL: No CVA tenderness. UPPER EXTREMITIES:No peripheral edema. LOWER EXTREMITIES: 2+ pulses, warm, well-perfused. No calf tenderness. No peripheral edema. Left leg wound dressing c/d/i NEUROLOGICAL: Non-focal PSYCHIATRIC: Cooperative. Good eye contact. Appropriate mood and affect. SKIN: Warm, dry, normal turgor, no rashes or lesions noted. Laboratory Results - last 24 hr 12/17/17 12/18/17 12/18/17 18:40 05:30 05:30 WBC 10.4 H RBC 3.85 L Hgb 11.5 L Hct 34.4 L MCV 89.4 MCH 29.9 MCHC 33.4 RDW 15.1 Plt Count 160 MPV 8.0 Absolute Neuts (auto) 7.8 Neutrophils % 74.6 Lymphocytes % 11.8 D Monocytes % 12.4 H Eosinophils % 0.8 D Basophils % 0.4 Nucleated RBC % 0 Sodium 140 Potassium 4.2 Chloride 104 Carbon Dioxide 28 Anion Gap 8 BUN 12 Creatinine 0.8 Creat Clearance w eGFR > 60 Random Glucose 122 H Calcium 8.7 Phosphorus 3.0 Magnesium 1.8 2.1 Total Bilirubin 0.6 AST 20 ALT 21 Alkaline Phosphatase 70 Creatine Kinase 179 Creatine Kinase Index 1.7 CK-MB (CK-2) 3.2 Troponin I < 0.02 Total Protein 6.2 L Albumin 3.4 ASSESSMENT/PLAN: POD #2: Left femoral popliteal bypass with PTFE and ligation of popliteal aneurysm PAD CAD HTN HPL Bradycardia R/O hypovolemia / versus effect of Beta Blockade Check Orthostatics Trial of IVF Pain control O2 as needed Incentive Spirometry VTE prophylaxis PO as tolerated Doppler checks Monitor UOP Symbicort BID ASA / Plavix If remains stable -> Can discuss with primary for D/C planning Dr Barajas
--- NOTE | 2017-12-18 14:07 | PN ---
Physical Exam: SUBJECTIVE: Patient seen and examined at bedside. he feels good and has no current complaints. He is asking when he will be granted permission to leave the hospital. Denies chest pain, SOB, difficulty breathing, palpitations, new rashes, fevers, back pain. he had a short episode of lightheadedness when he stood up from his bed earlier today. OBJECTIVE: Vital Signs Period Temp Pulse Resp BP Sys/Dotson Pulse Ox Last 24 Hr 97.8 F-98.0 F 56-74 15-21 118-160/47-76 98-98 GENERAL: The patient is awake, alert, and fully oriented, in no acute distress. HEAD: Normal with no signs of trauma. EYES: PERRL, extraocular movements intact, sclera anicteric, conjunctiva clear. No ptosis. ENT: Ears normal, nares patent, oropharynx clear without exudates, moist mucous membranes. NECK: Trachea midline, full range of motion, supple. LUNGS: Breath sounds equal, clear to auscultation bilaterally, no wheezes, no crackles, no accessory muscle use. HEART: regular rate and regular rhythm, S1, S2. ABDOMEN: Soft, nontender, nondistended, normoactive bowel sounds, no guarding, no rebound, no hepatosplenomegaly, no masses. UPPER EXTREMITIES: 2+ pulses, warm, well-perfused, no edema. LOWER EXTREMITIES: 2+ pulses, warm, well-perfused. No calf tenderness. No peripheral edema. Left leg wound dressing c/d/i NEUROLOGICAL: Cranial nerves II through XII grossly intact. Normal speech, gait not observed. PSYCH: Normal mood, normal affect. SKIN: Warm, dry, normal turgor, no rashes or lesions noted Laboratory Results - last 24 hr 12/17/17 12/18/17 12/18/17 18:40 05:30 05:30 WBC 10.4 H RBC 3.85 L Hgb 11.5 L Hct 34.4 L MCV 89.4 MCH 29.9 MCHC 33.4 RDW 15.1 Plt Count 160 MPV 8.0 Absolute Neuts (auto) 7.8 Neutrophils % 74.6 Lymphocytes % 11.8 D Monocytes % 12.4 H Eosinophils % 0.8 D Basophils % 0.4 Nucleated RBC % 0 Sodium 140 Potassium 4.2 Chloride 104 Carbon Dioxide 28 Anion Gap 8 BUN 12 Creatinine 0.8 Creat Clearance w eGFR > 60 Random Glucose 122 H Calcium 8.7 Phosphorus 3.0 Magnesium 1.8 2.1 Total Bilirubin 0.6 AST 20 ALT 21 Alkaline Phosphatase 70 Creatine Kinase 179 Creatine Kinase Index 1.7 CK-MB (CK-2) 3.2 Troponin I < 0.02 Total Protein 6.2 L Albumin 3.4 Active Medications Generic Name Dose Route Start Last Admin Trade Name Freq PRN Reason Stop Dose Admin Allopurinol 300 mg 12/17/17 10:00 12/18/17 09:11 Zyloprim - PO 300 mg DAILY [facility] Administration Amlodipine Besylate 10 mg 12/17/17 10:00 12/18/17 09:11 Norvasc - PO 10 mg DAILY [facility] Administration Aspirin 81 mg 12/17/17 10:00 12/18/17 09:10 Ecotrin - PO 81 mg DAILY [facility] Administration Budesonide/Formoterol Fumarate 2 puff 12/17/17 10:00 12/18/17 09:12 Symbicort 80/4.5mcg - IH 2 puff DAILY [facility] Administration Chlorhexidine Gluconate 1 applic 12/17/17 22:00 12/17/17 21:59 Hibiclens For Decolonization - TP 1 applic HS [facility] Administration Clindamycin HCl 300 mg 12/17/17 14:00 12/18/17 06:30 Cleocin - PO 300 mg TID [facility] Administration Clopidogrel Bisulfate 75 mg 12/17/17 10:00 12/18/17 09:11 Plavix - PO 75 mg DAILY [facility] Administration Docusate Sodium 100 mg 12/16/17 22:00 12/18/17 09:10 Colace - PO 100 mg BID [facility] Administration Folic Acid 1 mg 12/17/17 10:00 12/18/17 09:10 Folic Acid - PO 1 mg DAILY [facility] Administration Gentamicin Sulfate 1 applic 12/17/17 10:00 12/18/17 09:12 Garamycin 0.1% Ointment - TP 1 applic BID [facility] Administration Heparin Sodium (Porcine) 5,000 unit 12/16/17 22:00 12/18/17 06:30 Heparin - SQ 5,000 unit TID [facility] Administration Mupirocin 1 applic 12/17/17 22:00 12/18/17 09:09 Bactroban Ointment (For Decolonization) - NS 12/22/17 21:59 1 applic BID [facility] Administration Non-Formulary Medication 80 mg 12/17/17 10:00 Azilsartan Medoxomil [Edarbi] PO DAILY [facility] Oxycodone HCl 5 mg 12/16/17 16:20 12/18/17 09:19 Roxicodone - PO 5 mg Q6H PRN Administration PAIN LEVEL 1-5 Oxycodone HCl 10 mg 12/16/17 16:20 Roxicodone - PO Q6H PRN PAIN LEVEL 6-10 Propranolol HCl 20 mg 12/17/17 22:00 12/18/17 09:10 Inderal - PO 20 mg BID [facility] Administration Psyllium Hydrophilic Mucilloid 5.85 gm 12/17/17 10:00 12/18/17 09:11 Metamucil (Sugar-Free) - PO 5.85 gm DAILY [facility] Administration Ranitidine HCl 300 mg 12/16/17 22:00 12/17/17 21:55 Zantac - PO 300 mg HS [facility] Administration Rosuvastatin Calcium 10 mg 12/16/17 22:00 12/17/17 21:54 Crestor - PO 10 mg HS [facility] Administration ASSESSMENT/PLAN: Assessment: 77 year old male who presented to the hospital for scheduled Left femoral popliteal bypass with PTFE by Dr. Bassett. Patient admitted to ICU for overnight monitoring and management. He is now POD #1. No fevers, no complaints. Patient doing well since surgery. Minimal incisional tenderness since surgery. Patient had an episode of likely orthostasis when he got up from bed. Spoke with Dr. Jones about patient. We will give him a fluid bolus and transfer him to Tele. He has been doing great with his incentive spirometer. We measured his orthostatic BP at bedside and his systolic BP decreased by 27 mm Hg. He is likely dehydrated and orthostatic. Will give 500 fluid bolus. - incentive spirometer. - DVT prophylaxis. - Transfer to Tele Plan: Post Surgery: -Pain control with Oxy and tylenol - Continue home meds==> Aspirin, Plavix, Crestor Cardiovascular: - Doppler check for pulses Q2h - Monitor BP - Frequent EKGs Pulmonary: - Incentive spirometry - Home med ==> symbicort Gastro: - Zantac F/E/N: - NS @125mls/hr - Strict Is and Os - Clear liquid diet DVT prophylaxis: -Heparin 5000 units sq TID for DVT Code status: - Full Code Dispo - Transfer to Tele Visit type - Emergency Visit Emergency Visit: Yes ED Registration Date: 12/16/17 Care time: The patient presented to the Emergency Department on the above date and was hospitalized for further evaluation of their emergent condition. - New Patient This patient is new to me today: No - Critical Care Critical Care patient: Yes Total Critical Care Time (in minutes): 36 Critical Care Statement: The care of this patient involved high complexity decision making to prevent further life threatening deterioration of the patient 's condition and/or to evaluate & treat vital organ system(s) failure or risk of failure.
[2017-12-18] MEDS ORDERED: SODIUM CHLORIDE 0.9% 500 ML INFUS.BAG IV ONE (14:12)
[2017-12-18 15:24] VITALS: BMI 29.2
--- NOTE | 2017-12-18 17:51 | PN ---
Progress Note (short form) - Note Progress Note: 77 year old male with h/o hypertension, COPD, PAD, s/p femoral popliteal bypass of the left lower extremity, bradycardia and transient junctional rhythm at rest. Since the dose of Inderal was reduced no further episode of marked bradyarrthymia. Patient did have an episode of near syncope when he was out of bed for the first time after receiving norvasc and inderal and was hypotenive which responded to fluid replacement. No chest pain or discomfort, no SOB. Active Medications Allopurinol (Zyloprim -) 300 mg PO DAILY [facility] Amlodipine Besylate (Norvasc -) 10 mg PO DAILY [facility] Aspirin (Ecotrin -) 81 mg PO DAILY [facility] Chlorhexidine Gluconate (Hibiclens For Decolonization -) 1 applic TP HS [facility] Clindamycin HCl (Cleocin -) 300 mg PO TID [facility] Clopidogrel Bisulfate (Plavix -) 75 mg PO DAILY [facility] Docusate Sodium (Colace -) 100 mg PO BID [facility] Folic Acid (Folic Acid -) 1 mg PO DAILY [facility] Gentamicin Sulfate (Garamycin 0.1% Ointment -) 1 applic TP BID [facility] Heparin Sodium (Porcine) (Heparin -) 5,000 unit SQ TID [facility] Vancomycin HCl (Vancomycin (Pre-Docked)) 1,000 mg in 250 mls @ 133.333 mls/hr IVPB ONCE ONE; Protocol Stop: 12/18/17 19:56 Last Admin: 12/18/17 18:17 Dose: Not Given Non-Formulary Medication (Azilsartan Medoxomil [Edarbi]) 80 mg PO DAILY [facility] Oxycodone HCl (Roxicodone -) 5 mg PO Q6H PRN PRN Reason: PAIN LEVEL 1-5 Oxycodone HCl (Roxicodone -) 10 mg PO Q6H PRN PRN Reason: PAIN LEVEL 6-10 Propranolol HCl (Inderal -) 20 mg PO BID [facility] Psyllium Hydrophilic Mucilloid (Metamucil (Sugar-Free) -) 5.85 gm PO DAILY [facility] Ranitidine HCl (Zantac -) 300 mg PO HS [facility] Rosuvastatin Calcium (Crestor -) 10 mg PO HS [facility] 77 year pil male in no distress, no pallor, cyanosis or clubbing Last Vital Signs Temp Pulse Resp BP Pulse Ox 98.1 F 60 18 101/88 98 12/18/17 18:00 12/18/17 18:00 12/18/17 18:00 12/18/17 18:00 12/18/17 08:00 NECK: Supple, no JVD, carotids2+ right carotid scar. HEART: PMI in the 5th ICS, no heaves or thrills. EDSON I/ at the 2nd ICS, no gallops heard. LUNGS: Clear on ausculation. ABDOMEN: Soft, nontender, no organomegaly, incisional hernia, well healed midline scar. EXTREMITIES: Left leg: Foot is warm, 2+ edema, no calf tenderness. Right leg: No calf tenderness or edema. DP and PT pulses were not palpable CBC, BMP 12/18/17 05:30 12/18/17 05:30 Mg. 18mg. IMPRESSION: 1. Near syncope secondary to postural hypotension. 2. PAD, left femoral popliteal bypass. 3. HTN. 4. COPD. 5. Bradyarrthymia secondary to medications and anesthetic(resolved). RECOMMENDATIONS: 1. Reduce the dose of norvasc to 5mg. and space the anti hypertensive meds. 2. Check BP supine and standing. 3. F/u CBC and BMP.
[2017-12-18] MEDS ORDERED: oxyCODONE HCL 5 MG TABLET PO PRN (18:04)
[2017-12-18] MEDS ORDERED: VANCOMYCIN 1 GRAM (PRE-DOCKED) 1,000 MG/250 ML BAG IVPB ONE (18:04)
[2017-12-18] MEDS: RANITIDINE HCL 150 MG TABLET (FP) PO SCH (22:51)
[2017-12-18] MEDS: ROSUVASTATIN CA 10 MG TABLET (FP) PO SCH (22:51)
[2017-12-18] MEDS: CHLORHEXIDINE GLUCONATE 4% CLEANSER FOR DECOLONIZATION TP SCH (22:52)
[2017-12-19] MEDS: HEPARIN NA (PORCINE) 5,000 UNITS/ML 1ML VIAL SQ SCH ×3 (06:55→21:59)
[2017-12-19] MEDS: CLINDAMYCIN HCL 150 MG CAPSULE (FP) PO SCH ×3 (06:55→22:01)
[2017-12-19] MEDS: oxyCODONE HCL 5 MG TABLET PO PRN ×2 (07:01→22:08)
[2017-12-19] MEDS ORDERED: PT OWN MED DRAWER 7, Y5N ONE ×4 (07:08→21:46)
[2017-12-19 07:32] LABS: BASO % 0.5 % (0-2.0); EOS % 2.3 % (0-4.5); HEMATOCRIT 30.1 % (35.4-49); HEMOGLOBIN 10.1 GM/dL (11.7-16.9); LYMPH % 15.6 % (8-40); MCHC 33.5 g/dl (32.0-35.9); MEAN CELL VOLUME 89.4 fl (80-96); MEAN PLT VOLUME 8.5 fl (7.5-11.1); MONO % 15.7 % (3.8-10.2); NEUT % 65.9 % (42.8-82.8); PLATELET COUNT 139 K/MM3 (134-434); RBC 3.36 M/mm3 (4.00-5.60); RDW 15.2 % (11.9-15.9); WHITE BLOOD COUNT 7.7 K/mm3 (4.0-10.0)
[2017-12-19 08:01] LABS: ALBUMIN 2.9 g/dl (3.4-5.0); ALK PHOS 62 U/L (45-117); ANION GAP 7 MMOL/L (8-16); BILIRUBIN,TOTAL 0.7 mg/dL (0.2-1); BLOOD UREA NITROGEN 12 mg/dL (7-18); CALCIUM 7.9 mg/dL (8.5-10.1); CHLORIDE 106 mmol/L (98-107); CO2 27 mmol/L (21-32); CREATININE 0.7 mg/dL (0.55-1.3); GLUCOSE,RANDOM 120 mg/dL (74-106); MAGNESIUM 1.9 mg/dL (1.8-2.4); PHOSPHOROUS 3.5 mg/dL (2.5-4.9); POTASSIUM 3.8 mmol/L (3.5-5.1); SGOT/AST 16 U/L (15-37); SGPT/ALT 20 U/L (13-61); SODIUM 140 mmol/L (136-145); TOT PROT 5.4 g/dl (6.4-8.2)
[2017-12-19] MEDS ORDERED: amLODIPine BESYLATE 10 MG TABLET (FP) PO SCH (10:00)
[2017-12-19] MEDS ORDERED: PATIENT'S OWN MEDICATION (NON-FORMULARY) (Azilsartan Medoxomil [Edarbi] 80 MG) PO SCH (10:00)
[2017-12-19] MEDS: PATIENT'S OWN MEDICATION (NON-FORMULARY) (Azilsartan Medoxomil [Edarbi] 80 MG) PO SCH ×2 (10:31→10:32)
[2017-12-19] MEDS: ALLOPURINOL 300 MG TABLET (FP) PO SCH (10:36)
[2017-12-19] MEDS: amLODIPine BESYLATE 10 MG TABLET (FP) PO SCH (10:36)
[2017-12-19] MEDS: DOCUSATE SODIUM 100 MG CAPSULE (FP) PO SCH ×2 (10:36→22:01)
[2017-12-19] MEDS: FOLIC ACID 1 MG TABLET (FP) PO SCH (10:37)
[2017-12-19] MEDS: CLOPIDOGREL BISULFATE 75 MG TABLET (FP) PO SCH (10:37)
[2017-12-19] MEDS: ASPIRIN COATED 81 MG TABLET.EC PO SCH (10:37)
[2017-12-19] MEDS: PSYLLIUM 5.85 GM PACKET PO SCH (10:38)
--- NOTE | 2017-12-19 10:41 | PN ---
Progress Note (short form) - Note Progress Note: No complaints. Episode of lightheaedness yesterday while sitting up VSS Wounds clean case. DP 2+ Labs WNL Stable s/p Left fem-pop Hypotensive episode related to bradycardia Pending cardiology evaluation should be OK for discharge in AM.
--- NOTE | 2017-12-19 11:11 | PN ---
Progress Note, Physician Chief Complaint: s/p Left femoral popliteal bypass with PTFE. Ligation popliteal aneurysm History of Present Illness: NAD Vitals stable seen by Vascular surgery - Current Medication List Current Medications: Active Medications Allopurinol (Zyloprim -) 300 mg PO DAILY [facility] Last Admin: 12/19/17 10:36 Dose: 300 mg Amlodipine Besylate (Norvasc -) 5 mg PO DAILY [facility] Last Admin: 12/19/17 10:36 Dose: 5 mg Aspirin (Ecotrin -) 81 mg PO DAILY [facility] Last Admin: 12/19/17 10:37 Dose: 81 mg Chlorhexidine Gluconate (Hibiclens For Decolonization -) 1 applic TP HS [facility] Last Admin: 12/18/17 22:52 Dose: Not Given Clindamycin HCl (Cleocin -) 300 mg PO TID [facility] Last Admin: 12/19/17 06:55 Dose: 300 mg Clopidogrel Bisulfate (Plavix -) 75 mg PO DAILY [facility] Last Admin: 12/19/17 10:37 Dose: 75 mg Docusate Sodium (Colace -) 100 mg PO BID [facility] Last Admin: 12/19/17 10:36 Dose: 100 mg Folic Acid (Folic Acid -) 1 mg PO DAILY [facility] Last Admin: 12/19/17 10:37 Dose: 1 mg Gentamicin Sulfate (Garamycin 0.1% Ointment -) 1 applic TP BID [facility] Last Admin: 12/18/17 23:50 Dose: Not Given Heparin Sodium (Porcine) (Heparin -) 5,000 unit SQ TID [facility] Last Admin: 12/19/17 06:55 Dose: 5,000 unit Non-Formulary Medication (Azilsartan Medoxomil [Edarbi]) 80 mg PO DAILY [facility] Oxycodone HCl (Roxicodone -) 5 mg PO Q6H PRN PRN Reason: PAIN LEVEL 1-5 Last Admin: 12/19/17 07:01 Dose: 5 mg Oxycodone HCl (Roxicodone -) 10 mg PO Q6H PRN PRN Reason: PAIN LEVEL 6-10 Propranolol HCl (Inderal -) 20 mg PO BID [facility] Last Admin: 12/19/17 10:39 Dose: 20 mg Psyllium Hydrophilic Mucilloid (Metamucil (Sugar-Free) -) 5.85 gm PO DAILY [facility] Last Admin: 12/19/17 10:38 Dose: 5.85 gm Ranitidine HCl (Zantac -) 300 mg PO [facility] Last Admin: 12/18/17 22:51 Dose: 300 mg Rosuvastatin Calcium (Crestor -) 10 mg PO [facility] Last Admin: 12/18/17 22:51 Dose: 10 mg - Objective Vital Signs: Vital Signs Temperature 98.0 F 12/19/17 06:00 Pulse Rate 65 12/19/17 06:00 Respiratory Rate 18 12/19/17 06:00 Blood Pressure 129/65 12/19/17 06:00 O2 Sat by Pulse Oximetry (%) 98 12/18/17 21:00 Constitutional: Yes: Well Nourished, No Distress, Calm Cardiovascular: Yes: Regular Rate and Rhythm Respiratory: Yes: Regular Gastrointestinal: Yes: Normal Bowel Sounds, Soft Musculoskeletal: Yes: WNL Extremities: Yes: WNL Edema: No Peripheral Pulses WNL: Yes Neurological: Yes: Alert, Oriented Psychiatric: Yes: Alert, Oriented Labs: CBC, BMP 12/19/17 06:14 12/19/17 06:14 Problem List - Problems (1) S/P femoropopliteal bypass surgery Assessment/Plan: -Vascular nd Cardiology on board -On Plavix/asa Code(s): Z95.828 - PRESENCE OF OTHER VASCULAR IMPLANTS AND GRAFTS (2) Bradycardia Assessment/Plan: -resolved Code(s): R00.1 - BRADYCARDIA, UNSPECIFIED (3) Popliteal aneurysm Code(s): I72.4 - ANEURYSM OF ARTERY OF LOWER EXTREMITY (4) Anemia Assessment/Plan: s/p surgery -H/h stabilized -monitor in 1 week outpatient Code(s): D64.9 - ANEMIA, UNSPECIFIED Assessment/Plan see problem list DVT prophylaxis D/C home if cleared by cardiology
--- NOTE | 2017-12-19 11:38 | PN ---
Progress Note (short form) - Note Progress Note: 77 year old male with h/o hypertension, COPD, PAD, s/p femoral popliteal bypass of the left lower extremity, bradycardia and transient junctional rhythm at rest. Since the dose of Inderal was reduced, no further episode of bradyarrthymia. no lightheadedness or presyncope. No SOb or chest pain. Patient has not ambulated since his transfer to telemetry. Active Medications Allopurinol (Zyloprim -) 300 mg PO DAILY [facility] Last Admin: 12/19/17 10:36 Dose: 300 mg Amlodipine Besylate (Norvasc -) 5 mg PO DAILY [facility] Last Admin: 12/19/17 10:36 Dose: 5 mg Aspirin (Ecotrin -) 81 mg PO DAILY [facility] Last Admin: 12/19/17 10:37 Dose: 81 mg Chlorhexidine Gluconate (Hibiclens For Decolonization -) 1 applic TP HS [facility] Last Admin: 12/18/17 22:52 Dose: Not Given Clindamycin HCl (Cleocin -) 300 mg PO TID [facility] Last Admin: 12/19/17 06:55 Dose: 300 mg Clopidogrel Bisulfate (Plavix -) 75 mg PO DAILY [facility] Last Admin: 12/19/17 10:37 Dose: 75 mg Docusate Sodium (Colace -) 100 mg PO BID [facility] Last Admin: 12/19/17 10:36 Dose: 100 mg Folic Acid (Folic Acid -) 1 mg PO DAILY [facility] Last Admin: 12/19/17 10:37 Dose: 1 mg Gentamicin Sulfate (Garamycin 0.1% Ointment -) 1 applic TP BID [facility] Last Admin: 12/18/17 23:50 Dose: Not Given Heparin Sodium (Porcine) (Heparin -) 5,000 unit SQ TID [facility] Last Admin: 12/19/17 06:55 Dose: 5,000 unit Non-Formulary Medication (Azilsartan Medoxomil [Edarbi]) 80 mg PO DAILY [facility] Oxycodone HCl (Roxicodone -) 5 mg PO Q6H PRN PRN Reason: PAIN LEVEL 1-5 Last Admin: 12/19/17 07:01 Dose: 5 mg Oxycodone HCl (Roxicodone -) 10 mg PO Q6H PRN PRN Reason: PAIN LEVEL 6-10 Propranolol HCl (Inderal -) 20 mg PO BID [facility] Last Admin: 12/19/17 10:39 Dose: 20 mg Psyllium Hydrophilic Mucilloid (Metamucil (Sugar-Free) -) 5.85 gm PO DAILY [facility] Last Admin: 12/19/17 10:38 Dose: 5.85 gm Ranitidine HCl (Zantac -) 300 mg PO [facility] Last Admin: 12/18/17 22:51 Dose: 300 mg Rosuvastatin Calcium (Crestor -) 10 mg PO [facility] Last Admin: 12/18/17 22:51 Dose: 10 mg 77 year pil male in no distress, no pallor, cyanosis or clubbing Last Vital Signs Temp Pulse Resp BP Pulse Ox 98.0 F 65 18 Sittin/64 Standin/53mm Hg 98 12/19/17 06:00 12/19/17 06:00 12/19/17 06:00 12/19/17 06:00 12/18/17 21:00 NECK: Supple, no JVD, carotids2+ right carotid scar. HEART: PMI in the 5th ICS, no heaves or thrills. EDSON I/ at the 2nd ICS, no gallops heard. LUNGS: Clear on ausculation. ABDOMEN: Soft, nontender, no organomegaly, incisional hernia, well healed midline scar. EXTREMITIES: Left leg: Foot is warm, 2+ edema, no calf tenderness. Right leg: No calf tenderness or edema. DP and PT pulses were not palpable CBC, BMP 12/19/17 06:14 12/19/17 06:14 IMPRESSION: 1. PAD, left femoral popliteal bypass. 2. Postural Drop in BP without symptoms. 3. HTN. 4. COPD. 5. Bradyarrthymia secondary to medications and anesthetic(resolved). RECOMMENDATIONS: 1. Increase ambulation with assistance. 2. F/u BP supine and standing. 3. If patient remains stable with ambulation and there no symptoms or significant change of BP with standing he could be discharged provided he is surgicaaly stable.
[2017-12-19] MEDS: GENTAMICIN SO4 0.1% TOPICAL OINTMENT 15 GM/TUBE TUBE TP SCH ×2 (14:02→23:56)
[2017-12-19] MEDS: CHLORHEXIDINE GLUCONATE 4% CLEANSER FOR DECOLONIZATION TP SCH (22:00)
[2017-12-19] MEDS: RANITIDINE HCL 150 MG TABLET (FP) PO SCH (22:00)
[2017-12-19] MEDS: ROSUVASTATIN CA 10 MG TABLET (FP) PO SCH (22:01)
[2017-12-20] MEDS: CLINDAMYCIN HCL 150 MG CAPSULE (FP) PO SCH ×2 (07:01→13:31)
[2017-12-20] MEDS: HEPARIN NA (PORCINE) 5,000 UNITS/ML 1ML VIAL SQ SCH ×2 (07:02→13:31)
[2017-12-20] MEDS: ASPIRIN COATED 81 MG TABLET.EC PO SCH (10:57)
[2017-12-20] MEDS: FOLIC ACID 1 MG TABLET (FP) PO SCH (10:57)
[2017-12-20] MEDS: CLOPIDOGREL BISULFATE 75 MG TABLET (FP) PO SCH (10:57)
[2017-12-20] MEDS: ALLOPURINOL 300 MG TABLET (FP) PO SCH (10:58)
[2017-12-20] MEDS: PSYLLIUM 5.85 GM PACKET PO SCH (10:58)
[2017-12-20] MEDS: DOCUSATE SODIUM 100 MG CAPSULE (FP) PO SCH (10:58)
[2017-12-20] MEDS: amLODIPine BESYLATE 10 MG TABLET (FP) PO SCH (11:02)
[2017-12-20 11:54] VITALS: TEMP 98.2
[2017-12-20 12:33] VITALS: BP 128/48; PULSE 72
--- NOTE | 2017-12-20 12:44 | PN ---
Progress Note, Physician Chief Complaint: s/p Left femoral popliteal bypass with PTFE. Ligation popliteal aneurysm History of Present Illness: NAD Vitals stable seen by Vascular surgery Positive orthostatic BP - Current Medication List Current Medications: Active Medications Allopurinol (Zyloprim -) 300 mg PO DAILY [facility] Last Admin: 12/20/17 10:58 Dose: 300 mg Amlodipine Besylate (Norvasc -) 5 mg PO DAILY [facility] Last Admin: 12/20/17 11:02 Dose: 5 mg Aspirin (Ecotrin -) 81 mg PO DAILY [facility] Last Admin: 12/20/17 10:57 Dose: 81 mg Chlorhexidine Gluconate (Hibiclens For Decolonization -) 1 applic TP HS [facility] Last Admin: 12/19/17 22:00 Dose: Not Given Clindamycin HCl (Cleocin -) 300 mg PO TID [facility] Last Admin: 12/20/17 07:01 Dose: 300 mg Clopidogrel Bisulfate (Plavix -) 75 mg PO DAILY [facility] Last Admin: 12/20/17 10:57 Dose: 75 mg Docusate Sodium (Colace -) 100 mg PO BID [facility] Last Admin: 12/20/17 10:58 Dose: 100 mg Folic Acid (Folic Acid -) 1 mg PO DAILY [facility] Last Admin: 12/20/17 10:57 Dose: 1 mg Gentamicin Sulfate (Garamycin 0.1% Ointment -) 1 applic TP BID [facility] Last Admin: 12/19/17 23:56 Dose: 1 applic Heparin Sodium (Porcine) (Heparin -) 5,000 unit SQ TID [facility] Last Admin: 12/20/17 07:02 Dose: 5,000 unit Non-Formulary Medication (Azilsartan Medoxomil [Edarbi]) 80 mg PO DAILY [facility] Oxycodone HCl (Roxicodone -) 5 mg PO Q6H PRN PRN Reason: PAIN LEVEL 1-5 Last Admin: 12/19/17 22:08 Dose: 5 mg Oxycodone HCl (Roxicodone -) 10 mg PO Q6H PRN PRN Reason: PAIN LEVEL 6-10 Propranolol HCl (Inderal -) 20 mg PO BID [facility] Last Admin: 12/20/17 11:03 Dose: 20 mg Psyllium Hydrophilic Mucilloid (Metamucil (Sugar-Free) -) 5.85 gm PO DAILY [facility] Last Admin: 12/20/17 10:58 Dose: 5.85 gm Ranitidine HCl (Zantac -) 300 mg PO [facility] Last Admin: 12/19/17 22:00 Dose: 300 mg Rosuvastatin Calcium (Crestor -) 10 mg PO [facility] Last Admin: 12/19/17 22:01 Dose: 10 mg - Objective Vital Signs: Vital Signs Temperature 98.2 F 12/20/17 10:00 Pulse Rate 72 12/20/17 12:32 Respiratory Rate 18 12/20/17 10:00 Blood Pressure 128/48 L 12/20/17 12:32 O2 Sat by Pulse Oximetry (%) 97 12/19/17 21:00 Constitutional: Yes: Well Nourished, No Distress, Calm Cardiovascular: Yes: Regular Rate and Rhythm Respiratory: Yes: Regular Gastrointestinal: Yes: Normal Bowel Sounds, Soft Musculoskeletal: Yes: WNL Extremities: Yes: WNL Edema: No Peripheral Pulses WNL: Yes Wound/Incision: Yes: Dressing Dry and Intact Neurological: Yes: Alert, Oriented Psychiatric: Yes: Alert, Oriented Labs: CBC, BMP 12/19/17 06:14 12/19/17 06:14 Problem List - Problems (1) S/P femoropopliteal bypass surgery Assessment/Plan: -Vascular and Cardiology on board -On Plavix/asa Code(s): Z95.828 - PRESENCE OF OTHER VASCULAR IMPLANTS AND GRAFTS (2) Bradycardia Assessment/Plan: -resolved Code(s): R00.1 - BRADYCARDIA, UNSPECIFIED (3) Popliteal aneurysm Code(s): I72.4 - ANEURYSM OF ARTERY OF LOWER EXTREMITY (4) Anemia Assessment/Plan: s/p surgery -H/h stabilized -monitor in 1 week outpatient Code(s): D64.9 - ANEMIA, UNSPECIFIED (5) Orthostatic hypotension Assessment/Plan: -d/c Norvasc -[place] fluids -Compression stocking -f/u outpatient within 1 week with me and cardiology Code(s): I95.1 - ORTHOSTATIC HYPOTENSION Assessment/Plan see problem list DVT prophylaxis
[2017-12-20] MEDS: GENTAMICIN SO4 0.1% TOPICAL OINTMENT 15 GM/TUBE TUBE TP SCH (13:31)
--- NOTE | 2017-12-23 18:39 | PN ---
Progress Note (short form) - Note Progress Note: ADDENDUM DIAGNOSIS ACUTE BLOOD LOSS ANEMIA
== END 2017-12-20 02:55 | disposition home or self-care (01) | DRG 253 ==
LOC: JSAMEDAYSX 08:55 → JICU 20:26 → J4S 12-18 20:33
PROVIDERS: ADMIT Surgery; ATTEND Surgery
PROC: 04L Lower Arteries, Occlusion (ICD-10-PCS; 2017-12-16)
PROC: 041L4JL Bypass Left Femoral Artery to Popliteal Artery with Synthetic Substitute, Percutaneous Endoscopic Approach (ICD-10-PCS; principal; 2017-12-16 11:00)
DX: I72.4 Aneurysm of artery of lower extremity (principal); D62 Acute posthemorrhagic anemia; R00.1 Bradycardia, unspecified; D64.9 Anemia, unspecified; I95.1 Orthostatic hypotension; I10 Essential (primary) hypertension; J44.9 Chronic obstructive pulmonary disease, unspecified; E78.5 Hyperlipidemia, unspecified; K75.4 Autoimmune hepatitis; I25.10 Atherosclerotic heart disease of native coronary artery without angina pectoris; I73.9 Peripheral vascular disease, unspecified; M10.9 Gout, unspecified
CPT/HCPCS: 36415; 71045-TC-FY; 80048; 80053; 82550; 82553; 83735; 84100; 84484; 85025; 86850; 86900; 86901; 86922; 93005; 93010; 94010; 94760; 97116-GP; 97161-GP; J1644; J7030

== ENCOUNTER 2019-12-18 18:11 | Inpatient (IN) | payer OTHER, BC ==
[2019-12-18] MEDS ORDERED: ACETAMINOPHEN 1000 MG/100 ML VIAL (NON FORMULARY) IVPB ONE (18:43)
[2019-12-18] MEDS ORDERED: LACTATED RINGERS SOLUTION 1000 ML INFUS.BAG IV ONE (18:43)
[2019-12-18] MEDS ORDERED: ACETAMINOPHEN INJECTION 100 ML IVPB ONE (19:20)
[2019-12-18] MEDS ORDERED: ONDANSETRON 4 MG/2 ML VIAL IVPUSH ONE (19:41)
[2019-12-18 19:43] LABS: BASO % 0.3 % (0-2.0); EOS % 0.3 % (0-4.5); HEMATOCRIT 40.2 % (35.4-49); HEMOGLOBIN 13.4 GM/dL (11.7-16.9); LYMPH % 4.2 % (8-40); MCH 29.8 pg (25.7-33.7); MCHC 33.5 g/dl (32.0-35.9); MEAN PLT VOLUME 8.9 fl (7.5-11.1); MONO % 8.6 % (3.8-10.2); NEUT % 86.6 % (42.8-82.8); PLATELET COUNT 164 K/MM3 (134-434); RBC 4.52 M/mm3 (4.00-5.60); RDW 15.8 % (11.9-15.9); WHITE BLOOD COUNT 11.5 K/mm3 (4.0-10.0)
[2019-12-18] MEDS ORDERED: VANCOMYCIN 1 GM in D5W (PRE-DOCKED) 1,000 MG/250 ML IVPB ONE (20:01)
[2019-12-18] MEDS ORDERED: AZTREONAM 1 GM in DEXTROSE 5%-WATER - 50 ML IVPB ONE (20:02)
[2019-12-18] MEDS ORDERED: VANCOMYCIN 1 GRAM (PRE-DOCKED) 1,000 MG/250 ML BAG IVPB ONE (20:13)
[2019-12-18] MEDS ORDERED: AZTREONAM 1 GM VIAL (RESTRICTED TO ID) ONE (20:13)
[2019-12-18 20:15] LABS: CHLORIDE 98 mmol/L (98-107); POTASSIUM 4.2 mmol/L (3.5-5.1); SODIUM 132 mmol/L (136-145)
[2019-12-18 20:17] LABS: ANION GAP 11 MMOL/L (8-16); BLOOD UREA NITROGEN 21.4 mg/dL (7-18); CALCIUM 8.9 mg/dL (8.5-10.1); CO2 23 mmol/L (21-32); GLUCOSE,RANDOM 127 mg/dL (74-106)
[2019-12-18 20:18] LABS: ALBUMIN 3.6 g/dl (3.4-5.0)
[2019-12-18 20:20] LABS: CREATININE 1.2 mg/dL (0.55-1.3); SGOT/AST 68 U/L (15-37); SGPT/ALT 46 U/L (13-61)
[2019-12-18 20:22] LABS: BILIRUBIN,TOTAL 1.4 mg/dL (0.2-1); TOT PROT 7.8 g/dl (6.4-8.2)
[2019-12-18 20:23] LABS: ALK PHOS 113 U/L (45-117)
[2019-12-18] MEDS ORDERED: SODIUM CHLORIDE 0.9% 500 ML INFUS.BAG IV ONE (21:00)
[2019-12-18 23:01] LABS: INR 1.24 (0.83-1.09); PROTHROMBIN TIME (PATIENT) 14.9 SEC (9.7-13.0)
[2019-12-18 23:04] LABS: ACTIVATED PTT 27.1 SECONDS (25.2-36.5)
[2019-12-18 23:37] LABS: PH,URINE 5.5 (5.0-8.0); URINE APPEARANCE CLEAR; URINE BILIRUBIN NEGATIVE (NEGATIVE); URINE COLOR YELLOW; URINE GLUCOSE (UA) NEGATIVE (NEGATIVE); URINE KETONE NEGATIVE (NEGATIVE); URINE LEUK ESTERASE NEGATIVE (NEGATIVE); URINE NITRITE NEGATIVE (NEGATIVE); URINE PROTEIN TRACE (NEGATIVE); URINE UROBILINOGEN 0.2 mg/dL (0.2-1.0)
[2019-12-19 06:53] LABS: BASO % 0.4 % (0-2.0); EOS % 0.7 % (0-4.5); HEMATOCRIT 36.3 % (35.4-49); HEMOGLOBIN 12.1 GM/dL (11.7-16.9); LYMPH % 6.2 % (8-40); MCH 29.6 pg (25.7-33.7); MCHC 33.5 g/dl (32.0-35.9); MEAN CELL VOLUME 88.4 fl (80-96); MEAN PLT VOLUME 8.1 fl (7.5-11.1); NEUT % 80.7 % (42.8-82.8); PLATELET COUNT 132 K/MM3 (134-434); RDW 15.5 % (11.9-15.9); WHITE BLOOD COUNT 8.6 K/mm3 (4.0-10.0)
[2019-12-19] MEDS: INSULIN SLIDING SCALE (NOVOLOG) 1 VIAL SQ SCH ×3 (07:01→17:01)
[2019-12-19 07:14] LABS: POTASSIUM 4.3 mmol/L (3.5-5.1)
[2019-12-19 07:22] LABS: ALBUMIN 2.8 g/dl (3.4-5.0); BLOOD UREA NITROGEN 14.7 mg/dL (7-18)
[2019-12-19 07:24] LABS: CALCIUM 8.4 mg/dL (8.5-10.1)
[2019-12-19 07:26] LABS: CREATININE 0.9 mg/dL (0.55-1.3)
[2019-12-19 07:27] LABS: BILIRUBIN,TOTAL 0.8 mg/dL (0.2-1); TOT PROT 6.4 g/dl (6.4-8.2)
[2019-12-19] MEDS ORDERED: AZTREONAM 1 GM VIAL (RESTRICTED TO ID) ONE (09:37)
[2019-12-19] MEDS ORDERED: DEXTROSE 5%-WATER - 50 ML IVPB ONE (09:37)
[2019-12-19] MEDS ORDERED: PT OWN MED DRAWER 7, Y5N ONE ×2 (09:37→21:42)
[2019-12-19] MEDS: HEPARIN NA (PORCINE) 5,000 UNITS/ML 1ML VIAL SQ SCH ×2 (09:47→21:57)
[2019-12-19] MEDS ORDERED: AZTREONAM 1 GM in DEXTROSE 5%-WATER - 50 ML IVPB SCH (10:00)
[2019-12-19] MEDS ORDERED: ACETAMINOPHEN 325 MG TABLET (FP) PO PRN (11:05)
[2019-12-19] MEDS ORDERED: OLMESARTAN MEDOXOMIL PO SCH (11:15)
[2019-12-19] MEDS ORDERED: sitaGLIPtin PHOSPHATE 50 MG TABLET PO SCH (11:15)
[2019-12-19] MEDS: ALLOPURINOL 300 MG TABLET (FP) PO SCH (11:29)
[2019-12-19] MEDS: ASCORBIC ACID 500 MG TABLET (FP) PO SCH ×2 (11:29→21:55)
[2019-12-19] MEDS: FOLIC ACID 1 MG TABLET (FP) PO SCH (11:29)
[2019-12-19] MEDS: MULTIVITAMINS THER W-MINERALS COMBO TABLET (FP) PO SCH (11:29)
[2019-12-19] MEDS: amLODIPine BESYLATE 5 MG TABLET (FP) PO SCH ×2 (11:29→21:57)
[2019-12-19] MEDS: ASPIRIN COATED 81 MG TABLET.EC PO SCH (11:29)
[2019-12-19] MEDS: VANCOMYCIN 1 GRAM (PRE-DOCKED) 1,000 MG/250 ML BAG IVPB SCH ×2 (12:19→22:47)
[2019-12-19] MEDS: BUDESONIDE/FORMETEROL FUMARATE 80/4.5 mcg INHALER IH SCH ×2 (12:19→21:56)
[2019-12-19] MEDS ORDERED: VANCOMYCIN 1 GRAM (PRE-DOCKED) 1,000 MG/250 ML BAG IVPB SCH (20:00)
[2019-12-19] MEDS: ROSUVASTATIN CA 10 MG TABLET (FP) PO SCH (21:55)
[2019-12-20 08:56] LABS: POTASSIUM 3.9 mmol/L (3.5-5.1)
[2019-12-20 08:58] LABS: BASO % 0.3 % (0-2.0); EOS % 0.6 % (0-4.5); HEMATOCRIT 37.8 % (35.4-49); HEMOGLOBIN 12.8 GM/dL (11.7-16.9); LYMPH % 4.6 % (8-40); MCH 30.2 pg (25.7-33.7); MEAN CELL VOLUME 88.9 fl (80-96); MEAN PLT VOLUME 8.3 fl (7.5-11.1); MONO % 10.1 % (3.8-10.2); NEUT % 84.4 % (42.8-82.8); PLATELET COUNT 144 K/MM3 (134-434); RBC 4.25 M/mm3 (4.00-5.60); RDW 15.5 % (11.9-15.9); WHITE BLOOD COUNT 10.1 K/mm3 (4.0-10.0)
[2019-12-20 08:59] LABS: BLOOD UREA NITROGEN 12.4 mg/dL (7-18); CALCIUM 8.6 mg/dL (8.5-10.1)
[2019-12-20 09:00] LABS: ALBUMIN 2.9 g/dl (3.4-5.0)
[2019-12-20 09:03] LABS: CREATININE 0.9 mg/dL (0.55-1.3)
[2019-12-20 09:05] LABS: BILIRUBIN,TOTAL 0.8 mg/dL (0.2-1); TOT PROT 6.5 g/dl (6.4-8.2)
[2019-12-20] MEDS ORDERED: PT OWN MED DRAWER 7, Y5N ONE ×3 (09:30→22:08)
[2019-12-20] MEDS: ASCORBIC ACID 500 MG TABLET (FP) PO SCH ×2 (09:32→22:10)
[2019-12-20] MEDS: MULTIVITAMINS THER W-MINERALS COMBO TABLET (FP) PO SCH (09:32)
[2019-12-20] MEDS: amLODIPine BESYLATE 5 MG TABLET (FP) PO SCH ×2 (09:33→22:10)
[2019-12-20] MEDS: ASPIRIN COATED 81 MG TABLET.EC PO SCH (09:33)
[2019-12-20] MEDS: FOLIC ACID 1 MG TABLET (FP) PO SCH (09:33)
[2019-12-20] MEDS: ALLOPURINOL 300 MG TABLET (FP) PO SCH (09:33)
[2019-12-20] MEDS: HEPARIN NA (PORCINE) 5,000 UNITS/ML 1ML VIAL SQ SCH ×2 (09:33→22:10)
[2019-12-20] MEDS: BUDESONIDE/FORMETEROL FUMARATE 80/4.5 mcg INHALER IH SCH ×2 (09:34→22:11)
[2019-12-20] MEDS: LOSARTAN POTASSIUM 50 MG TABLET PO SCH (10:14)
[2019-12-20] MEDS ORDERED: VANCOMYCIN 1,250 MG in DEXTROSE 5%-WATER - 250 ML IVPB SCH (11:00)
[2019-12-20] MEDS ORDERED: ONDANSETRON 4 MG/2 ML VIAL IVPUSH PRN (12:24)
[2019-12-20] MEDS: FAMOTIDINE 20 MG TABLET PO SCH (13:17)
[2019-12-20] MEDS: ROSUVASTATIN CA 10 MG TABLET (FP) PO SCH (22:10)
[2019-12-20] MEDS: VANCOMYCIN 1,250 MG in DEXTROSE 5%-WATER - 250 ML IVPB SCH (23:09)
[2019-12-21 08:52] LABS: BASO % 0.4 % (0-2.0); EOS % 0.2 % (0-4.5); HEMATOCRIT 36.6 % (35.4-49); HEMOGLOBIN 12.3 GM/dL (11.7-16.9); LYMPH % 4.9 % (8-40); MCH 29.1 pg (25.7-33.7); MCHC 33.5 g/dl (32.0-35.9); MEAN CELL VOLUME 86.8 fl (80-96); MEAN PLT VOLUME 8.4 fl (7.5-11.1); MONO % 8.1 % (3.8-10.2); NEUT % 86.4 % (42.8-82.8); PLATELET COUNT 167 K/MM3 (134-434); RBC 4.21 M/mm3 (4.00-5.60); RDW 15.4 % (11.9-15.9); WHITE BLOOD COUNT 11.7 K/mm3 (4.0-10.0)
[2019-12-21 09:02] LABS: POTASSIUM 3.5 mmol/L (3.5-5.1)
[2019-12-21 09:10] LABS: BLOOD UREA NITROGEN 11.5 mg/dL (7-18); CALCIUM 8.3 mg/dL (8.5-10.1)
[2019-12-21 09:13] LABS: CREATININE 0.9 mg/dL (0.55-1.3)
[2019-12-21 09:14] LABS: BILIRUBIN,TOTAL 0.9 mg/dL (0.2-1)
[2019-12-21 09:15] LABS: TOT PROT 6.6 g/dl (6.4-8.2)
[2019-12-21] MEDS ORDERED: PT OWN MED DRAWER 7, Y5N ONE ×3 (10:07→17:33)
[2019-12-21] MEDS: LOSARTAN POTASSIUM 50 MG TABLET PO SCH (10:16)
[2019-12-21] MEDS: ASPIRIN COATED 81 MG TABLET.EC PO SCH (10:16)
[2019-12-21] MEDS: FOLIC ACID 1 MG TABLET (FP) PO SCH (10:16)
[2019-12-21] MEDS: HYDROCHLOROTHIAZIDE 25 MG TABLET (FP) PO SCH (10:17)
[2019-12-21] MEDS: FAMOTIDINE 20 MG TABLET PO SCH (10:17)
[2019-12-21] MEDS: BUDESONIDE/FORMETEROL FUMARATE 80/4.5 mcg INHALER IH SCH ×2 (10:18→22:15)
[2019-12-21] MEDS: ASCORBIC ACID 500 MG TABLET (FP) PO SCH ×2 (10:18→22:08)
[2019-12-21] MEDS: MULTIVITAMINS THER W-MINERALS COMBO TABLET (FP) PO SCH (10:18)
[2019-12-21] MEDS: ALLOPURINOL 300 MG TABLET (FP) PO SCH (10:18)
[2019-12-21] MEDS: HEPARIN NA (PORCINE) 5,000 UNITS/ML 1ML VIAL SQ SCH ×2 (10:19→22:08)
[2019-12-21] MEDS: MUPIROCIN 2% TOPICAL OINTMENT 22 GM TUBE TP SCH (10:21)
[2019-12-21] MEDS ORDERED: ACETAMINOPHEN 325 MG TABLET (FP) PO PRN (12:12)
[2019-12-21] MEDS: VANCOMYCIN 1,250 MG in DEXTROSE 5%-WATER - 250 ML IVPB SCH ×2 (13:21→23:51)
[2019-12-21] MEDS: ROSUVASTATIN CA 10 MG TABLET (FP) PO SCH (22:08)
[2019-12-22 09:23] LABS: BASO % 0.4 % (0-2.0); EOS % 1.2 % (0-4.5); HEMATOCRIT 35.5 % (35.4-49); HEMOGLOBIN 12.1 GM/dL (11.7-16.9); MCH 29.9 pg (25.7-33.7); MCHC 34.1 g/dl (32.0-35.9); MEAN CELL VOLUME 87.9 fl (80-96); MEAN PLT VOLUME 8.7 fl (7.5-11.1); MONO % 12.4 % (3.8-10.2); PLATELET COUNT 153 K/MM3 (134-434); RBC 4.04 M/mm3 (4.00-5.60); RDW 15.7 % (11.9-15.9)
[2019-12-22 09:27] LABS: POTASSIUM 3.3 mmol/L (3.5-5.1)
[2019-12-22 09:29] LABS: CALCIUM 8.5 mg/dL (8.5-10.1)
[2019-12-22 09:30] LABS: ALBUMIN 2.8 g/dl (3.4-5.0)
[2019-12-22 09:31] LABS: BLOOD UREA NITROGEN 11.8 mg/dL (7-18)
[2019-12-22 09:33] LABS: CREATININE 0.9 mg/dL (0.55-1.3)
[2019-12-22 09:34] LABS: BILIRUBIN,TOTAL 0.6 mg/dL (0.2-1)
[2019-12-22 09:35] LABS: TOT PROT 6.2 g/dl (6.4-8.2)
[2019-12-22] MEDS: HYDROCHLOROTHIAZIDE 25 MG TABLET (FP) PO SCH (10:52)
[2019-12-22] MEDS: ASPIRIN COATED 81 MG TABLET.EC PO SCH (10:52)
[2019-12-22] MEDS: MULTIVITAMINS THER W-MINERALS COMBO TABLET (FP) PO SCH (10:53)
[2019-12-22] MEDS: HEPARIN NA (PORCINE) 5,000 UNITS/ML 1ML VIAL SQ SCH ×2 (10:53→22:12)
[2019-12-22] MEDS: ALLOPURINOL 300 MG TABLET (FP) PO SCH (10:53)
[2019-12-22] MEDS: ASCORBIC ACID 500 MG TABLET (FP) PO SCH ×2 (10:53→22:10)
[2019-12-22] MEDS: LOSARTAN POTASSIUM 50 MG TABLET PO SCH (10:54)
[2019-12-22] MEDS: FOLIC ACID 1 MG TABLET (FP) PO SCH (10:54)
[2019-12-22] MEDS: BUDESONIDE/FORMETEROL FUMARATE 80/4.5 mcg INHALER IH SCH ×2 (10:59→22:11)
[2019-12-22] MEDS: VANCOMYCIN 1,250 MG in DEXTROSE 5%-WATER - 250 ML IVPB SCH ×2 (11:00→22:13)
[2019-12-22] MEDS: MUPIROCIN 2% TOPICAL OINTMENT 22 GM TUBE TP SCH (14:07)
[2019-12-22] MEDS: FAMOTIDINE 20 MG TABLET PO SCH (14:08)
[2019-12-22] MEDS: ROSUVASTATIN CA 10 MG TABLET (FP) PO SCH (22:10)
[2019-12-23 08:42] LABS: BASO % 0.6 % (0-2.0); EOS % 2.4 % (0-4.5); HEMATOCRIT 35.6 % (35.4-49); HEMOGLOBIN 12.1 GM/dL (11.7-16.9); MCH 29.3 pg (25.7-33.7); MEAN CELL VOLUME 86.2 fl (80-96); MEAN PLT VOLUME 8.8 fl (7.5-11.1); MONO % 11.1 % (3.8-10.2); NEUT % 75.9 % (42.8-82.8); PLATELET COUNT 193 K/MM3 (134-434); RBC 4.13 M/mm3 (4.00-5.60); RDW 14.9 % (11.9-15.9); WHITE BLOOD COUNT 8.6 K/mm3 (4.0-10.0)
[2019-12-23 08:57] LABS: POTASSIUM 3.2 mmol/L (3.5-5.1)
[2019-12-23 09:08] LABS: CALCIUM 8.7 mg/dL (8.5-10.1)
[2019-12-23 09:10] LABS: ALBUMIN 2.8 g/dl (3.4-5.0); BLOOD UREA NITROGEN 15.3 mg/dL (7-18)
[2019-12-23 09:14] LABS: BILIRUBIN,TOTAL 0.7 mg/dL (0.2-1)
[2019-12-23 09:15] LABS: TOT PROT 6.5 g/dl (6.4-8.2)
[2019-12-23] MEDS ORDERED: POTASSIUM CHLORIDE TABS 20 MEQ TABLET.ER (FP) PO ONE (10:05)
[2019-12-23] MEDS ORDERED: PT OWN MED DRAWER 7, Y5N ONE ×2 (10:15→21:07)
[2019-12-23] MEDS: HEPARIN NA (PORCINE) 5,000 UNITS/ML 1ML VIAL SQ SCH ×2 (11:12→22:02)
[2019-12-23] MEDS: FUROSEMIDE 40 MG/4 ML INJECTABLE VIAL IVPUSH SCH (11:14)
[2019-12-23] MEDS: MULTIVITAMINS THER W-MINERALS COMBO TABLET (FP) PO SCH (11:16)
[2019-12-23] MEDS: LOSARTAN POTASSIUM 50 MG TABLET PO SCH (11:17)
[2019-12-23] MEDS: FAMOTIDINE 20 MG TABLET PO SCH (11:17)
[2019-12-23] MEDS: ASCORBIC ACID 500 MG TABLET (FP) PO SCH ×2 (11:17→22:01)
[2019-12-23] MEDS: ALLOPURINOL 300 MG TABLET (FP) PO SCH (11:19)
[2019-12-23] MEDS: ASPIRIN COATED 81 MG TABLET.EC PO SCH (11:36)
[2019-12-23] MEDS: FOLIC ACID 1 MG TABLET (FP) PO SCH (11:36)
[2019-12-23] MEDS: HYDROCHLOROTHIAZIDE 25 MG TABLET (FP) PO SCH (11:36)
[2019-12-23] MEDS: BUDESONIDE/FORMETEROL FUMARATE 80/4.5 mcg INHALER IH SCH ×2 (11:46→22:01)
[2019-12-23] MEDS: VANCOMYCIN 1,250 MG in DEXTROSE 5%-WATER - 250 ML IVPB SCH (13:25)
[2019-12-23] MEDS ORDERED: DAPTOMYCIN 700 MG in SODIUM CHLORIDE 50 ML IVPB SCH (14:30)
[2019-12-23] MEDS: MUPIROCIN 2% TOPICAL OINTMENT 22 GM TUBE TP SCH (15:46)
[2019-12-24 08:20] LABS: HEMOGLOBIN 11.3 GM/dL (11.7-16.9); RBC 3.83 M/mm3 (4.00-5.60); WHITE BLOOD COUNT 6.7 K/mm3 (4.0-10.0)
[2019-12-24 08:21] LABS: BASO % 0.4 % (0-2.0); EOS % 2.5 % (0-4.5); HEMATOCRIT 33.8 % (35.4-49); LYMPH % 10.6 % (8-40); MCH 29.4 pg (25.7-33.7); MCHC 33.3 g/dl (32.0-35.9); MEAN CELL VOLUME 88.4 fl (80-96); MEAN PLT VOLUME 8.8 fl (7.5-11.1); MONO % 12.3 % (3.8-10.2); NEUT % 74.2 % (42.8-82.8); PLATELET COUNT 194 K/MM3 (134-434); RDW 15.3 % (11.9-15.9)
[2019-12-24 08:38] LABS: POTASSIUM 3.8 mmol/L (3.5-5.1)
[2019-12-24 08:42] LABS: ALBUMIN 2.6 g/dl (3.4-5.0); BLOOD UREA NITROGEN 18.9 mg/dL (7-18); CALCIUM 8.9 mg/dL (8.5-10.1)
[2019-12-24 08:45] LABS: CREATININE 1.1 mg/dL (0.55-1.3)
[2019-12-24 08:47] LABS: BILIRUBIN,TOTAL 0.5 mg/dL (0.2-1); TOT PROT 6.1 g/dl (6.4-8.2)
[2019-12-24 08:49] LABS: ALBUMIN 2.7 g/dl (3.4-5.0); BILIRUBIN,DIRECT 0.2 mg/dL (0.0-0.2)
[2019-12-24 08:55] LABS: BILIRUBIN,TOTAL 0.7 mg/dL (0.2-1)
[2019-12-24 09:20] LABS: INR 1.01 (0.83-1.09); PROTHROMBIN TIME (PATIENT) 12.2 SEC (9.7-13.0)
[2019-12-24] MEDS ORDERED: PT OWN MED DRAWER 7, Y5N ONE ×2 (09:21→21:04)
[2019-12-24] MEDS: LOSARTAN POTASSIUM 50 MG TABLET PO SCH (09:24)
[2019-12-24] MEDS: ASPIRIN COATED 81 MG TABLET.EC PO SCH (09:24)
[2019-12-24] MEDS: HYDROCHLOROTHIAZIDE 25 MG TABLET (FP) PO SCH (09:25)
[2019-12-24] MEDS: FOLIC ACID 1 MG TABLET (FP) PO SCH (09:25)
[2019-12-24] MEDS: MULTIVITAMINS THER W-MINERALS COMBO TABLET (FP) PO SCH (09:25)
[2019-12-24] MEDS: ALLOPURINOL 300 MG TABLET (FP) PO SCH (09:26)
[2019-12-24] MEDS: ASCORBIC ACID 500 MG TABLET (FP) PO SCH ×2 (09:26→21:55)
[2019-12-24] MEDS: BUDESONIDE/FORMETEROL FUMARATE 80/4.5 mcg INHALER IH SCH ×2 (09:28→21:59)
[2019-12-24] MEDS: HEPARIN NA (PORCINE) 5,000 UNITS/ML 1ML VIAL SQ SCH ×2 (11:01→21:54)
[2019-12-24] MEDS: MUPIROCIN 2% TOPICAL OINTMENT 22 GM TUBE TP SCH (11:08)
[2019-12-24] MEDS: FUROSEMIDE 40 MG/4 ML INJECTABLE VIAL IVPUSH SCH (11:08)
[2019-12-25 07:47] LABS: BASO % 0.6 % (0-2.0); EOS % 2.2 % (0-4.5); HEMOGLOBIN 11.3 GM/dL (11.7-16.9); LYMPH % 11.1 % (8-40); MCH 28.8 pg (25.7-33.7); MCHC 33.2 g/dl (32.0-35.9); MEAN CELL VOLUME 86.9 fl (80-96); MEAN PLT VOLUME 7.9 fl (7.5-11.1); NEUT % 76.1 % (42.8-82.8); PLATELET COUNT 238 K/MM3 (134-434); RBC 3.91 M/mm3 (4.00-5.60); RDW 15.1 % (11.9-15.9); WHITE BLOOD COUNT 7.3 K/mm3 (4.0-10.0)
[2019-12-25 08:03] LABS: POTASSIUM 3.5 mmol/L (3.5-5.1)
[2019-12-25 08:05] LABS: ALBUMIN 2.8 g/dl (3.4-5.0); BLOOD UREA NITROGEN 23.8 mg/dL (7-18); CALCIUM 8.8 mg/dL (8.5-10.1)
[2019-12-25 08:09] LABS: CREATININE 1.1 mg/dL (0.55-1.3)
[2019-12-25 08:10] LABS: BILIRUBIN,TOTAL 0.5 mg/dL (0.2-1); TOT PROT 6.2 g/dl (6.4-8.2)
[2019-12-25] MEDS: MUPIROCIN 2% TOPICAL OINTMENT 22 GM TUBE TP SCH (08:59)
[2019-12-25] MEDS: FOLIC ACID 1 MG TABLET (FP) PO SCH (08:59)
[2019-12-25] MEDS: ASCORBIC ACID 500 MG TABLET (FP) PO SCH ×2 (09:00→21:46)
[2019-12-25] MEDS: ASPIRIN COATED 81 MG TABLET.EC PO SCH (09:00)
[2019-12-25] MEDS: MULTIVITAMINS THER W-MINERALS COMBO TABLET (FP) PO SCH (09:00)
[2019-12-25] MEDS: ALLOPURINOL 300 MG TABLET (FP) PO SCH (09:00)
[2019-12-25] MEDS: HYDROCHLOROTHIAZIDE 25 MG TABLET (FP) PO SCH (09:01)
[2019-12-25] MEDS: FUROSEMIDE 40 MG/4 ML INJECTABLE VIAL IVPUSH SCH (09:01)
[2019-12-25] MEDS: HEPARIN NA (PORCINE) 5,000 UNITS/ML 1ML VIAL SQ SCH ×2 (09:01→21:46)
[2019-12-25] MEDS: LOSARTAN POTASSIUM 50 MG TABLET PO SCH (09:01)
[2019-12-25] MEDS: BUDESONIDE/FORMETEROL FUMARATE 80/4.5 mcg INHALER IH SCH ×2 (09:02→21:46)
[2019-12-25] MEDS: DAPTOMYCIN 700 MG in SODIUM CHLORIDE 50 ML IVPB SCH (12:15)
[2019-12-25] MEDS ORDERED: PT OWN MED DRAWER 7, Y5N ONE (21:26)
[2019-12-26 08:21] LABS: BASO % 0.9 % (0-2.0); EOS % 1.9 % (0-4.5); HEMATOCRIT 35.5 % (35.4-49); HEMOGLOBIN 11.7 GM/dL (11.7-16.9); LYMPH % 11.8 % (8-40); MCH 28.8 pg (25.7-33.7); MCHC 33.1 g/dl (32.0-35.9); MEAN CELL VOLUME 87.2 fl (80-96); MEAN PLT VOLUME 7.7 fl (7.5-11.1); MONO % 9.1 % (3.8-10.2); NEUT % 76.3 % (42.8-82.8); PLATELET COUNT 279 K/MM3 (134-434); RBC 4.07 M/mm3 (4.00-5.60); RDW 15.1 % (11.9-15.9); WHITE BLOOD COUNT 9.6 K/mm3 (4.0-10.0)
[2019-12-26 08:49] LABS: POTASSIUM 4.1 mmol/L (3.5-5.1)
[2019-12-26 08:52] LABS: CALCIUM 9.1 mg/dL (8.5-10.1)
[2019-12-26 08:53] LABS: ALBUMIN 2.9 g/dl (3.4-5.0); BLOOD UREA NITROGEN 26.2 mg/dL (7-18)
[2019-12-26 08:57] LABS: BILIRUBIN,TOTAL 0.7 mg/dL (0.2-1); CREATININE 1.1 mg/dL (0.55-1.3); TOT PROT 6.4 g/dl (6.4-8.2)
[2019-12-26] MEDS ORDERED: PT OWN MED DRAWER 7, Y5N ONE ×2 (09:32→21:11)
[2019-12-26] MEDS: DAPTOMYCIN 700 MG in SODIUM CHLORIDE 50 ML IVPB SCH (09:55)
[2019-12-26] MEDS: MULTIVITAMINS THER W-MINERALS COMBO TABLET (FP) PO SCH (09:57)
[2019-12-26] MEDS: ASPIRIN COATED 81 MG TABLET.EC PO SCH (09:57)
[2019-12-26] MEDS: ALLOPURINOL 300 MG TABLET (FP) PO SCH (09:57)
[2019-12-26] MEDS: LOSARTAN POTASSIUM 50 MG TABLET PO SCH (09:57)
[2019-12-26] MEDS: ASCORBIC ACID 500 MG TABLET (FP) PO SCH ×2 (09:57→21:33)
[2019-12-26] MEDS: MUPIROCIN 2% TOPICAL OINTMENT 22 GM TUBE TP SCH (09:58)
[2019-12-26] MEDS: FUROSEMIDE 40 MG/4 ML INJECTABLE VIAL IVPUSH SCH (09:58)
[2019-12-26] MEDS: BUDESONIDE/FORMETEROL FUMARATE 80/4.5 mcg INHALER IH SCH ×2 (09:58→21:33)
[2019-12-26] MEDS: HYDROCHLOROTHIAZIDE 25 MG TABLET (FP) PO SCH (09:59)
[2019-12-26] MEDS: FOLIC ACID 1 MG TABLET (FP) PO SCH (09:59)
[2019-12-26 15:43] VITALS: BMI 27.3
[2019-12-26 20:10] LABS: HEP B CORE AB, TOT Negative (Negative)
[2019-12-27 08:10] LABS: POTASSIUM 3.6 mmol/L (3.5-5.1)
[2019-12-27 08:13] LABS: ALBUMIN 2.9 g/dl (3.4-5.0); BLOOD UREA NITROGEN 27.9 mg/dL (7-18)
[2019-12-27 08:16] LABS: CREATININE 1.1 mg/dL (0.55-1.3)
[2019-12-27 08:18] LABS: BILIRUBIN,TOTAL 0.5 mg/dL (0.2-1); TOT PROT 6.6 g/dl (6.4-8.2)
[2019-12-27] MEDS ORDERED: PT OWN MED DRAWER 7, Y5N ONE ×2 (11:10→21:32)
[2019-12-27] MEDS: LOSARTAN POTASSIUM 50 MG TABLET PO SCH (11:29)
[2019-12-27] MEDS: ASCORBIC ACID 500 MG TABLET (FP) PO SCH ×2 (11:29→21:53)
[2019-12-27] MEDS: DAPTOMYCIN 700 MG in SODIUM CHLORIDE 50 ML IVPB SCH (11:29)
[2019-12-27] MEDS: ASPIRIN COATED 81 MG TABLET.EC PO SCH (11:29)
[2019-12-27] MEDS: FOLIC ACID 1 MG TABLET (FP) PO SCH (11:30)
[2019-12-27] MEDS: HYDROCHLOROTHIAZIDE 25 MG TABLET (FP) PO SCH (11:30)
[2019-12-27] MEDS: ALLOPURINOL 300 MG TABLET (FP) PO SCH (11:30)
[2019-12-27] MEDS: MULTIVITAMINS THER W-MINERALS COMBO TABLET (FP) PO SCH (11:30)
[2019-12-27] MEDS: BUDESONIDE/FORMETEROL FUMARATE 80/4.5 mcg INHALER IH SCH ×2 (11:31→21:53)
[2019-12-27] MEDS: MUPIROCIN 2% TOPICAL OINTMENT 22 GM TUBE TP SCH (11:32)
[2019-12-27] MEDS: FUROSEMIDE 40 MG/4 ML INJECTABLE VIAL IVPUSH SCH (11:33)
[2019-12-27] MEDS: HEPARIN NA (PORCINE) 5,000 UNITS/ML 1ML VIAL SQ SCH (21:53)
[2019-12-28 07:42] LABS: BASO % 1.1 % (0-2.0); EOS % 1.9 % (0-4.5); HEMATOCRIT 38.4 % (35.4-49); HEMOGLOBIN 12.9 GM/dL (11.7-16.9); LYMPH % 12.1 % (8-40); MCH 29.4 pg (25.7-33.7); MCHC 33.6 g/dl (32.0-35.9); MEAN CELL VOLUME 87.4 fl (80-96); MEAN PLT VOLUME 7.4 fl (7.5-11.1); MONO % 10.8 % (3.8-10.2); NEUT % 74.1 % (42.8-82.8); PLATELET COUNT 339 K/MM3 (134-434); RBC 4.39 M/mm3 (4.00-5.60); RDW 15.2 % (11.9-15.9); WHITE BLOOD COUNT 10.7 K/mm3 (4.0-10.0)
[2019-12-28 08:01] LABS: POTASSIUM 3.8 mmol/L (3.5-5.1)
[2019-12-28 08:08] LABS: CALCIUM 9.5 mg/dL (8.5-10.1)
[2019-12-28 08:09] LABS: ALBUMIN 3.3 g/dl (3.4-5.0); BLOOD UREA NITROGEN 29.1 mg/dL (7-18)
[2019-12-28 08:10] LABS: BILIRUBIN,TOTAL 0.6 mg/dL (0.2-1); TOT PROT 7.5 g/dl (6.4-8.2)
[2019-12-28 08:11] LABS: CREATININE 1.2 mg/dL (0.55-1.3)
[2019-12-28] MEDS: LOSARTAN POTASSIUM 50 MG TABLET PO SCH (09:51)
[2019-12-28] MEDS: ALLOPURINOL 300 MG TABLET (FP) PO SCH (09:51)
[2019-12-28] MEDS: MULTIVITAMINS THER W-MINERALS COMBO TABLET (FP) PO SCH (09:51)
[2019-12-28] MEDS: ASPIRIN COATED 81 MG TABLET.EC PO SCH (09:51)
[2019-12-28] MEDS: ASCORBIC ACID 500 MG TABLET (FP) PO SCH ×2 (09:51→21:41)
[2019-12-28] MEDS: FUROSEMIDE 40 MG/4 ML INJECTABLE VIAL IVPUSH SCH (09:52)
[2019-12-28] MEDS: HEPARIN NA (PORCINE) 5,000 UNITS/ML 1ML VIAL SQ SCH ×2 (09:52→21:40)
[2019-12-28] MEDS: HYDROCHLOROTHIAZIDE 25 MG TABLET (FP) PO SCH (09:52)
[2019-12-28] MEDS: FOLIC ACID 1 MG TABLET (FP) PO SCH (09:52)
[2019-12-28] MEDS: BUDESONIDE/FORMETEROL FUMARATE 80/4.5 mcg INHALER IH SCH ×2 (09:56→21:41)
[2019-12-28] MEDS: MUPIROCIN 2% TOPICAL OINTMENT 22 GM TUBE TP SCH (13:41)
[2019-12-28] MEDS: DAPTOMYCIN 700 MG in SODIUM CHLORIDE 50 ML IVPB SCH (13:41)
[2019-12-29 06:47] LABS: BASO % 0.8 % (0-2.0); EOS % 1.6 % (0-4.5); HEMATOCRIT 34.4 % (35.4-49); HEMOGLOBIN 11.5 GM/dL (11.7-16.9); LYMPH % 14.8 % (8-40); MCH 29.1 pg (25.7-33.7); MCHC 33.4 g/dl (32.0-35.9); MEAN CELL VOLUME 87.3 fl (80-96); MEAN PLT VOLUME 7.6 fl (7.5-11.1); MONO % 12.2 % (3.8-10.2); NEUT % 70.6 % (42.8-82.8); PLATELET COUNT 264 K/MM3 (134-434); RBC 3.94 M/mm3 (4.00-5.60); RDW 15.5 % (11.9-15.9); WHITE BLOOD COUNT 7.9 K/mm3 (4.0-10.0)
[2019-12-29 07:12] LABS: POTASSIUM 3.5 mmol/L (3.5-5.1)
[2019-12-29 07:43] LABS: ALBUMIN 2.8 g/dl (3.4-5.0); BLOOD UREA NITROGEN 34.1 mg/dL (7-18)
[2019-12-29 07:46] LABS: CREATININE 1.1 mg/dL (0.55-1.3)
[2019-12-29 07:47] LABS: TOT PROT 6.5 g/dl (6.4-8.2)
[2019-12-29 07:49] LABS: BILIRUBIN,TOTAL 0.7 mg/dL (0.2-1)
[2019-12-29] MEDS ORDERED: PT OWN MED DRAWER 7, Y5N ONE ×2 (08:58→21:10)
[2019-12-29] MEDS: HEPARIN NA (PORCINE) 5,000 UNITS/ML 1ML VIAL SQ SCH ×2 (09:09→21:26)
[2019-12-29] MEDS: ASCORBIC ACID 500 MG TABLET (FP) PO SCH ×2 (09:09→21:26)
[2019-12-29] MEDS: ALLOPURINOL 300 MG TABLET (FP) PO SCH (09:09)
[2019-12-29] MEDS: FUROSEMIDE 40 MG/4 ML INJECTABLE VIAL IVPUSH SCH (09:09)
[2019-12-29] MEDS: MULTIVITAMINS THER W-MINERALS COMBO TABLET (FP) PO SCH (09:09)
[2019-12-29] MEDS: LOSARTAN POTASSIUM 50 MG TABLET PO SCH (09:09)
[2019-12-29] MEDS: ASPIRIN COATED 81 MG TABLET.EC PO SCH (09:09)
[2019-12-29] MEDS: FOLIC ACID 1 MG TABLET (FP) PO SCH (09:10)
[2019-12-29] MEDS: BUDESONIDE/FORMETEROL FUMARATE 80/4.5 mcg INHALER IH SCH ×2 (09:11→21:26)
[2019-12-29] MEDS: HYDROCHLOROTHIAZIDE 25 MG TABLET (FP) PO SCH (09:11)
[2019-12-29] MEDS: MUPIROCIN 2% TOPICAL OINTMENT 22 GM TUBE TP SCH (09:12)
[2019-12-29 09:23] LABS: ERYTHROCYTE SEDIMENTATION RATE 40 mm/hr (0-20)
[2019-12-29] MEDS: DAPTOMYCIN 700 MG in SODIUM CHLORIDE 50 ML IVPB SCH (09:28)
[2019-12-29] MEDS: POTASSIUM CHLORIDE TABS 20 MEQ TABLET.ER (FP) PO SCH (12:52)
[2019-12-30] MEDS ORDERED: PT OWN MED DRAWER 7, Y5N ONE ×2 (08:58→22:47)
[2019-12-30] MEDS: ASCORBIC ACID 500 MG TABLET (FP) PO SCH ×2 (09:06→22:43)
[2019-12-30] MEDS: ASPIRIN COATED 81 MG TABLET.EC PO SCH (09:06)
[2019-12-30] MEDS: ALLOPURINOL 300 MG TABLET (FP) PO SCH (09:06)
[2019-12-30] MEDS: FUROSEMIDE 40 MG TABLET (FP) PO SCH (09:06)
[2019-12-30] MEDS: POTASSIUM CHLORIDE TABS 20 MEQ TABLET.ER (FP) PO SCH (09:06)
[2019-12-30] MEDS: MULTIVITAMINS THER W-MINERALS COMBO TABLET (FP) PO SCH (09:06)
[2019-12-30] MEDS: VANCOMYCIN 1 GM in D5W (PRE-DOCKED) 1,000 MG/250 ML IVPB SCH ×2 (09:06→22:44)
[2019-12-30] MEDS: HYDROCHLOROTHIAZIDE 25 MG TABLET (FP) PO SCH (09:06)
[2019-12-30] MEDS: FOLIC ACID 1 MG TABLET (FP) PO SCH (09:07)
[2019-12-30] MEDS: BUDESONIDE/FORMETEROL FUMARATE 80/4.5 mcg INHALER IH SCH ×2 (09:07→22:45)
[2019-12-30] MEDS: HEPARIN NA (PORCINE) 5,000 UNITS/ML 1ML VIAL SQ SCH ×2 (09:07→22:43)
[2019-12-30] MEDS: LOSARTAN POTASSIUM 50 MG TABLET PO SCH (09:07)
[2019-12-30] MEDS: MUPIROCIN 2% TOPICAL OINTMENT 22 GM TUBE TP SCH (09:08)
[2019-12-31] MEDS ORDERED: PT OWN MED DRAWER 7, Y5N ONE (09:22)
[2019-12-31] MEDS: ASPIRIN COATED 81 MG TABLET.EC PO SCH (09:31)
[2019-12-31] MEDS: FUROSEMIDE 40 MG TABLET (FP) PO SCH (09:31)
[2019-12-31] MEDS: POTASSIUM CHLORIDE TABS 20 MEQ TABLET.ER (FP) PO SCH (09:32)
[2019-12-31] MEDS: ASCORBIC ACID 500 MG TABLET (FP) PO SCH ×2 (09:32→21:31)
[2019-12-31] MEDS: MULTIVITAMINS THER W-MINERALS COMBO TABLET (FP) PO SCH (09:32)
[2019-12-31] MEDS: ALLOPURINOL 300 MG TABLET (FP) PO SCH (09:32)
[2019-12-31] MEDS: VANCOMYCIN 1 GM in D5W (PRE-DOCKED) 1,000 MG/250 ML IVPB SCH ×2 (09:32→21:32)
[2019-12-31] MEDS: LOSARTAN POTASSIUM 50 MG TABLET PO SCH (09:32)
[2019-12-31] MEDS: FOLIC ACID 1 MG TABLET (FP) PO SCH (09:33)
[2019-12-31] MEDS: HEPARIN NA (PORCINE) 5,000 UNITS/ML 1ML VIAL SQ SCH ×2 (09:33→21:31)
[2019-12-31] MEDS: HYDROCHLOROTHIAZIDE 25 MG TABLET (FP) PO SCH (09:33)
[2019-12-31] MEDS: MUPIROCIN 2% TOPICAL OINTMENT 22 GM TUBE TP SCH (09:34)
[2019-12-31] MEDS: BUDESONIDE/FORMETEROL FUMARATE 80/4.5 mcg INHALER IH SCH ×2 (09:34→21:33)
[2020-01-01] MEDS ORDERED: PT OWN MED DRAWER 7, Y5N ONE ×2 (09:39→18:28)
[2020-01-01] MEDS: ASCORBIC ACID 500 MG TABLET (FP) PO SCH ×2 (09:47→21:57)
[2020-01-01] MEDS: MULTIVITAMINS THER W-MINERALS COMBO TABLET (FP) PO SCH (09:47)
[2020-01-01] MEDS: ASPIRIN COATED 81 MG TABLET.EC PO SCH (09:47)
[2020-01-01] MEDS: FOLIC ACID 1 MG TABLET (FP) PO SCH (09:47)
[2020-01-01] MEDS: VANCOMYCIN 1 GM in D5W (PRE-DOCKED) 1,000 MG/250 ML IVPB SCH ×2 (09:48→22:40)
[2020-01-01] MEDS: FUROSEMIDE 40 MG TABLET (FP) PO SCH (09:48)
[2020-01-01] MEDS: POTASSIUM CHLORIDE TABS 20 MEQ TABLET.ER (FP) PO SCH (09:48)
[2020-01-01] MEDS: ALLOPURINOL 300 MG TABLET (FP) PO SCH (09:48)
[2020-01-01] MEDS: HEPARIN NA (PORCINE) 5,000 UNITS/ML 1ML VIAL SQ SCH ×2 (09:50→21:56)
[2020-01-01] MEDS: HYDROCHLOROTHIAZIDE 25 MG TABLET (FP) PO SCH (09:50)
[2020-01-01] MEDS: MUPIROCIN 2% TOPICAL OINTMENT 22 GM TUBE TP SCH (09:55)
[2020-01-01] MEDS: BUDESONIDE/FORMETEROL FUMARATE 80/4.5 mcg INHALER IH SCH ×2 (09:55→22:02)
[2020-01-01] MEDS: LOSARTAN POTASSIUM 50 MG TABLET PO SCH (09:55)
[2020-01-01 12:31] LABS: POTASSIUM 3.3 mmol/L (3.5-5.1)
[2020-01-01 12:32] LABS: CALCIUM 8.3 mg/dL (8.5-10.1)
[2020-01-01 12:33] LABS: BLOOD UREA NITROGEN 25.2 mg/dL (7-18)
[2020-01-01 12:36] LABS: CREATININE 1.1 mg/dL (0.55-1.3)
[2020-01-02] MEDS ORDERED: POTASSIUM CHLORIDE TABS 20 MEQ TABLET.ER (FP) PO ONE (08:44)
[2020-01-02 09:06] LABS: CALCIUM 8.7 mg/dL (8.5-10.1)
[2020-01-02 09:07] LABS: BLOOD UREA NITROGEN 26.7 mg/dL (7-18)
[2020-01-02 09:10] LABS: CREATININE 1.1 mg/dL (0.55-1.3)
[2020-01-02] MEDS: ASCORBIC ACID 500 MG TABLET (FP) PO SCH (09:19)
[2020-01-02] MEDS: LOSARTAN POTASSIUM 50 MG TABLET PO SCH (09:19)
[2020-01-02] MEDS: FOLIC ACID 1 MG TABLET (FP) PO SCH (09:19)
[2020-01-02] MEDS: ALLOPURINOL 300 MG TABLET (FP) PO SCH (09:19)
[2020-01-02] MEDS: HEPARIN NA (PORCINE) 5,000 UNITS/ML 1ML VIAL SQ SCH (09:19)
[2020-01-02] MEDS: FUROSEMIDE 40 MG TABLET (FP) PO SCH (09:19)
[2020-01-02] MEDS: ASPIRIN COATED 81 MG TABLET.EC PO SCH (09:19)
[2020-01-02] MEDS: MULTIVITAMINS THER W-MINERALS COMBO TABLET (FP) PO SCH (09:19)
[2020-01-02] MEDS: MUPIROCIN 2% TOPICAL OINTMENT 22 GM TUBE TP SCH (09:20)
[2020-01-02] MEDS: HYDROCHLOROTHIAZIDE 25 MG TABLET (FP) PO SCH (09:20)
[2020-01-02] MEDS: BUDESONIDE/FORMETEROL FUMARATE 80/4.5 mcg INHALER IH SCH (09:40)
[2020-01-02] MEDS: POTASSIUM CHLORIDE TABS 20 MEQ TABLET.ER (FP) PO SCH (10:36)
[2020-01-02 14:28] VITALS: BP 131/68; PULSE 66; TEMP 97.8
[2020-01-03] MEDS ORDERED: VANCOMYCIN HCL 1,250 MG in DEXTROSE 5%-WATER - 250 ML IVPB SCH (10:00)
== END 2020-01-02 18:31 | disposition home health service (06) | DRG 854 ==
LOC: JER 18:11 → JERBED 21:18 → J8W 12-19 01:56
PROVIDERS: ADMIT Internal Medicine; ATTEND Family Medicine
PROC: 0JBR0ZZ Excision of Left Foot Subcutaneous Tissue and Fascia, Open Approach (ICD-10-PCS; principal; 2019-12-20)
PROC: 02HV33Z Insertion of Infusion Device into Superior Vena Cava, Percutaneous Approach (ICD-10-PCS; 2020-01-02)
PROC: B518ZZA Fluoroscopy of Superior Vena Cava, Guidance (ICD-10-PCS; 2020-01-02)
DX: A41.2 Sepsis due to unspecified staphylococcus (principal); L03.116 Cellulitis of left lower limb; L97.528 Non-pressure chronic ulcer of other part of left foot with other specified severity; K75.4 Autoimmune hepatitis; E11.621 Type 2 diabetes mellitus with foot ulcer; L03.032 Cellulitis of left toe; I71.4 Abdominal aortic aneurysm, without rupture; E78.5 Hyperlipidemia, unspecified; R60.0 Localized edema; J43.9 Emphysema, unspecified; I45.10 Unspecified right bundle-branch block; K76.89 Other specified diseases of liver; R94.5 Abnormal results of liver function studies; K76.0 Fatty (change of) liver, not elsewhere classified; D72.829 Elevated white blood cell count, unspecified; I10 Essential (primary) hypertension; E11.51 Type 2 diabetes mellitus with diabetic peripheral angiopathy without gangrene; Z86.718 Personal history of other venous thrombosis and embolism; Z85.118 Personal history of other malignant neoplasm of bronchus and lung; Z95.828 Presence of other vascular implants and grafts; Z88.0 Allergy status to penicillin; Z89.422 Acquired absence of other left toe(s)
CPT/HCPCS: 36415; 36569; 71045-TC-FY; 73630-TC-LT; 73718-TC-LT; 75635-TC; 76705-TC; 77001-TC-FY; 78804-TC; 80048; 80053; 80061; 80076; 81003; 82550; 82962; 83036; 83605; 83721; 84484; 85025; 85610; 85651; 85730; 86140; 86704; 86706; 86707; 86708; 86709; 86803; 87040; 87070; 87086; 87186; 87205; 87340; 93005; 93010; 93306-TC; 93971-TC; 97116-GP; 97162-GP; 99285-25; A9571; C1751; C9803; G0480; J0131; J0878; J1644; Q9967; U0003

== ENCOUNTER 2020-04-11 17:06 | Inpatient (IN) | payer OTHER, BC ==
[2020-04-11 17:34] VITALS: BMI 27.9
[2020-04-11 19:36] LABS: BASO % 0.4 % (0-2.0); EOS % 0.2 % (0-4.5); HEMATOCRIT 37.7 % (35.4-49); LYMPH % 5.7 % (8-40); MCHC 34.4 g/dl (32.0-35.9); MEAN PLT VOLUME 9.1 fl (7.5-11.1); MONO % 9.2 % (3.8-10.2); NEUT % 84.5 % (42.8-82.8); PLATELET COUNT 115 K/MM3 (134-434); RBC 4.05 M/mm3 (4.00-5.60); RDW 15.3 % (11.9-15.9); WHITE BLOOD COUNT 8.6 K/mm3 (4.0-10.0)
[2020-04-11 19:43] LABS: INR 1.03 (0.83-1.09); PROTHROMBIN TIME (PATIENT) 12.4 SEC (9.7-13.0)
[2020-04-11 19:46] LABS: ACTIVATED PTT 27.5 SECONDS (25.2-36.5)
[2020-04-11 19:56] LABS: ALBUMIN 3.5 g/dl (3.4-5.0); CALCIUM 8.2 mg/dL (8.5-10.1)
[2020-04-11 19:57] LABS: BLOOD UREA NITROGEN 18.9 mg/dL (7-18); MAGNESIUM 1.9 mg/dL (1.8-2.4)
[2020-04-11 20:00] LABS: CREATININE 1.1 mg/dL (0.55-1.3)
[2020-04-11 20:01] LABS: BILIRUBIN,TOTAL 1.1 mg/dL (0.2-1); TOT PROT 6.8 g/dl (6.4-8.2)
[2020-04-11] MEDS ORDERED: VANCOMYCIN 1 GM in D5W (PRE-DOCKED) 1,000 MG/250 ML IVPB ONE (20:02)
[2020-04-11] MEDS ORDERED: VANCOMYCIN 1 GRAM (PRE-DOCKED) 1,000 MG/250 ML BAG IVPB ONE (20:17)
[2020-04-11] MEDS ORDERED: ACETAMINOPHEN 325 MG TABLET (FP) PO PRN (20:51)
[2020-04-11] MEDS ORDERED: ONDANSETRON 4 MG/2 ML VIAL ONE (21:58)
[2020-04-11] MEDS: ONDANSETRON 4 MG/2 ML VIAL IVPUSH PRN (22:03)
[2020-04-12 09:24] LABS: BASO % 0.5 % (0-2.0); EOS % 0.2 % (0-4.5); HEMATOCRIT 36.7 % (35.4-49); HEMOGLOBIN 12.8 GM/dL (11.7-16.9); LYMPH % 6.2 % (8-40); MCH 31.9 pg (25.7-33.7); MCHC 34.9 g/dl (32.0-35.9); MEAN CELL VOLUME 91.4 fl (80-96); MEAN PLT VOLUME 8.6 fl (7.5-11.1); MONO % 9.8 % (3.8-10.2); NEUT % 83.3 % (42.8-82.8); PLATELET COUNT 109 K/MM3 (134-434); RBC 4.01 M/mm3 (4.00-5.60); RDW 15.3 % (11.9-15.9); WHITE BLOOD COUNT 9.3 K/mm3 (4.0-10.0)
[2020-04-12] MEDS: DAPTOMYCIN 700 MG in SODIUM CHLORIDE 50 ML IVPB SCH (09:28)
[2020-04-12] MEDS ORDERED: VANCOMYCIN/WATER BAGS 1,250 MG/250 ML BAG IVPB SCH (10:00)
[2020-04-12] MEDS ORDERED: VANCOMYCIN/WATER BAGS 1,250 MG/250 ML BAG IVPB ONE (10:00)
[2020-04-12 10:15] LABS: ALBUMIN 3.1 g/dl (3.4-5.0); BLOOD UREA NITROGEN 21.1 mg/dL (7-18); CALCIUM 8.2 mg/dL (8.5-10.1)
[2020-04-12 10:19] LABS: BILIRUBIN,TOTAL 0.8 mg/dL (0.2-1)
[2020-04-12 10:22] LABS: TOT PROT 6.1 g/dl (6.4-8.2)
[2020-04-12] MEDS: LOSARTAN POTASSIUM 50 MG TABLET PO SCH (14:46)
[2020-04-12] MEDS: ONDANSETRON 4 MG/2 ML VIAL IVPUSH PRN (16:11)
[2020-04-12 17:51] LABS: URINE APPEARANCE CLEAR; URINE BILIRUBIN NEGATIVE (NEGATIVE); URINE COLOR YELLOW; URINE GLUCOSE (UA) NEGATIVE (NEGATIVE); URINE KETONE TRACE (NEGATIVE)
[2020-04-12 17:52] LABS: PH,URINE 5.5 (5.0-8.0); URINE LEUK ESTERASE NEGATIVE (NEGATIVE); URINE NITRITE NEGATIVE (NEGATIVE); URINE PROTEIN 30 (NEGATIVE); URINE UROBILINOGEN 0.2 mg/dL (0.2-1.0)
[2020-04-12] MEDS: BUDESONIDE/FORMETEROL FUMARATE 80/4.5 mcg INHALER IH SCH (21:02)
[2020-04-13] MEDS: ONDANSETRON 4 MG/2 ML VIAL IVPUSH PRN (00:30)
[2020-04-13] MEDS: BUDESONIDE/FORMETEROL FUMARATE 80/4.5 mcg INHALER IH SCH ×2 (03:00→22:04)
[2020-04-13 09:11] LABS: BASO % 0.6 % (0-2.0); EOS % 0.4 % (0-4.5); HEMATOCRIT 39.8 % (35.4-49); HEMOGLOBIN 13.9 GM/dL (11.7-16.9); LYMPH % 6.8 % (8-40); MEAN CELL VOLUME 91.4 fl (80-96); MEAN PLT VOLUME 8.9 fl (7.5-11.1); MONO % 11.7 % (3.8-10.2); NEUT % 80.5 % (42.8-82.8); PLATELET COUNT 136 K/MM3 (134-434); RBC 4.36 M/mm3 (4.00-5.60); RDW 15.3 % (11.9-15.9); WHITE BLOOD COUNT 10.7 K/mm3 (4.0-10.0)
[2020-04-13] MEDS: FOLIC ACID 1 MG TABLET (FP) PO SCH (09:44)
[2020-04-13] MEDS: amLODIPine BESYLATE 5 MG TABLET (FP) PO SCH (09:44)
[2020-04-13] MEDS: DAPTOMYCIN 700 MG in SODIUM CHLORIDE 50 ML IVPB SCH (09:45)
[2020-04-13] MEDS: LOSARTAN POTASSIUM 50 MG TABLET PO SCH (09:45)
[2020-04-13] MEDS ORDERED: PT OWN MED DRAWER 7, Y5N ONE (09:48)
[2020-04-13] MEDS: ALLOPURINOL 300 MG TABLET (FP) PO SCH (09:52)
[2020-04-13 10:49] LABS: POTASSIUM 3.6 mmol/L (3.5-5.1)
[2020-04-13 10:59] LABS: ALBUMIN 3.3 g/dl (3.4-5.0); BLOOD UREA NITROGEN 23.5 mg/dL (7-18); CALCIUM 8.6 mg/dL (8.5-10.1)
[2020-04-13 11:03] LABS: TOT PROT 6.7 g/dl (6.4-8.2)
[2020-04-13 11:06] LABS: BILIRUBIN,TOTAL 1.5 mg/dL (0.2-1)
[2020-04-13] MEDS: ROSUVASTATIN CA 10 MG TABLET (FP) PO SCH (22:04)
[2020-04-14] MEDS ORDERED: PT OWN MED DRAWER 7, Y5N ONE (09:45)
[2020-04-14] MEDS: amLODIPine BESYLATE 5 MG TABLET (FP) PO SCH (09:48)
[2020-04-14] MEDS: FOLIC ACID 1 MG TABLET (FP) PO SCH (09:48)
[2020-04-14] MEDS: ALLOPURINOL 300 MG TABLET (FP) PO SCH (09:48)
[2020-04-14] MEDS: LOSARTAN POTASSIUM 50 MG TABLET PO SCH (09:49)
[2020-04-14] MEDS: BUDESONIDE/FORMETEROL FUMARATE 80/4.5 mcg INHALER IH SCH ×2 (09:52→21:09)
[2020-04-14] MEDS ORDERED: DAPTOMYCIN IVPB SCH (11:00)
[2020-04-14] MEDS ORDERED: SODIUM CHLORIDE IVPB SCH (11:00)
[2020-04-14 12:47] LABS: BASO % 0.5 % (0-2.0); EOS % 1.5 % (0-4.5); HEMATOCRIT 33.1 % (35.4-49); HEMOGLOBIN 11.7 GM/dL (11.7-16.9); LYMPH % 11.1 % (8-40); MCHC 35.5 g/dl (32.0-35.9); MEAN CELL VOLUME 90.2 fl (80-96); MEAN PLT VOLUME 8.4 fl (7.5-11.1); MONO % 14.6 % (3.8-10.2); NEUT % 72.3 % (42.8-82.8); PLATELET COUNT 138 K/MM3 (134-434); RBC 3.67 M/mm3 (4.00-5.60); RDW 14.6 % (11.9-15.9); WHITE BLOOD COUNT 8.8 K/mm3 (4.0-10.0)
[2020-04-14] MEDS: PANTOPRAZOLE 40 MG TABLET PO SCH (12:52)
[2020-04-14 13:04] LABS: POTASSIUM 3.5 mmol/L (3.5-5.1)
[2020-04-14 13:06] LABS: CALCIUM 8.2 mg/dL (8.5-10.1)
[2020-04-14 13:07] LABS: ALBUMIN 2.8 g/dl (3.4-5.0); BLOOD UREA NITROGEN 23.4 mg/dL (7-18)
[2020-04-14 13:10] LABS: CREATININE 0.9 mg/dL (0.55-1.3)
[2020-04-14 13:11] LABS: TOT PROT 5.9 g/dl (6.4-8.2)
[2020-04-14 13:12] LABS: BILIRUBIN,TOTAL 0.6 mg/dL (0.2-1)
[2020-04-14 18:51] LABS: HEMATOCRIT 32.8 % (35.4-49); HEMOGLOBIN 11.3 GM/dL (11.7-16.9); MCH 31.8 pg (25.7-33.7); MCHC 34.6 g/dl (32.0-35.9); MEAN CELL VOLUME 91.8 fl (80-96); PLATELET COUNT 128 K/MM3 (134-434); RBC 3.57 M/mm3 (4.00-5.60); RDW 14.9 % (11.9-15.9); WHITE BLOOD COUNT 8.2 K/mm3 (4.0-10.0)
[2020-04-14] MEDS: ROSUVASTATIN CA 10 MG TABLET (FP) PO SCH (21:09)
[2020-04-15] MEDS ORDERED: DAPTOMYCIN 700 MG in SODIUM CHLORIDE 50 ML IVPB SCH (10:00)
[2020-04-15] MEDS: PANTOPRAZOLE 40 MG TABLET PO SCH ×2 (10:00→21:40)
[2020-04-15] MEDS ORDERED: MELATONIN 5 MG TABLETS PO PRN (10:34)
[2020-04-15] MEDS ORDERED: PT OWN MED DRAWER 7, Y5N ONE (10:42)
[2020-04-15] MEDS: ALLOPURINOL 300 MG TABLET (FP) PO SCH (10:56)
[2020-04-15] MEDS: LOSARTAN POTASSIUM 50 MG TABLET PO SCH (10:57)
[2020-04-15] MEDS: BUDESONIDE/FORMETEROL FUMARATE 80/4.5 mcg INHALER IH SCH ×2 (10:57→21:40)
[2020-04-15] MEDS: amLODIPine BESYLATE 5 MG TABLET (FP) PO SCH (10:57)
[2020-04-15] MEDS: FOLIC ACID 1 MG TABLET (FP) PO SCH (10:57)
[2020-04-15 14:35] LABS: BASO % 0.2 % (0-2.0); EOS % 1.3 % (0-4.5); HEMATOCRIT 32.4 % (35.4-49); HEMOGLOBIN 11.2 GM/dL (11.7-16.9); LYMPH % 9.9 % (8-40); MCH 31.7 pg (25.7-33.7); MCHC 34.5 g/dl (32.0-35.9); MONO % 10.2 % (3.8-10.2); NEUT % 78.4 % (42.8-82.8); PLATELET COUNT 133 K/MM3 (134-434); RBC 3.52 M/mm3 (4.00-5.60); RDW 14.9 % (11.9-15.9); WHITE BLOOD COUNT 7.7 K/mm3 (4.0-10.0)
[2020-04-15 14:47] LABS: ALBUMIN 2.8 g/dl (3.4-5.0); BLOOD UREA NITROGEN 16.3 mg/dL (7-18); CALCIUM 8.1 mg/dL (8.5-10.1)
[2020-04-15 14:51] LABS: CREATININE 0.9 mg/dL (0.55-1.3)
[2020-04-15 14:53] LABS: BILIRUBIN,TOTAL 0.5 mg/dL (0.2-1); TOT PROT 5.8 g/dl (6.4-8.2)
[2020-04-16] MEDS ORDERED: PT OWN MED DRAWER 7, Y5N ONE (09:05)
[2020-04-16] MEDS: LOSARTAN POTASSIUM 50 MG TABLET PO SCH (09:09)
[2020-04-16] MEDS: PANTOPRAZOLE 40 MG TABLET PO SCH ×2 (09:10→22:51)
[2020-04-16] MEDS: FOLIC ACID 1 MG TABLET (FP) PO SCH (09:10)
[2020-04-16 09:13] LABS: BASO % 0.7 % (0-2.0); EOS % 1.6 % (0-4.5); HEMATOCRIT 29.8 % (35.4-49); HEMOGLOBIN 10.6 GM/dL (11.7-16.9); MCH 32.1 pg (25.7-33.7); MCHC 35.5 g/dl (32.0-35.9); MEAN CELL VOLUME 90.4 fl (80-96); MEAN PLT VOLUME 8.4 fl (7.5-11.1); MONO % 10.6 % (3.8-10.2); NEUT % 77.1 % (42.8-82.8); PLATELET COUNT 158 K/MM3 (134-434); RDW 14.6 % (11.9-15.9); WHITE BLOOD COUNT 8.2 K/mm3 (4.0-10.0)
[2020-04-16 09:20] LABS: POTASSIUM 3.9 mmol/L (3.5-5.1)
[2020-04-16 10:01] LABS: ALBUMIN 2.8 g/dl (3.4-5.0)
[2020-04-16 10:03] LABS: BLOOD UREA NITROGEN 13.9 mg/dL (7-18); CALCIUM 8.5 mg/dL (8.5-10.1)
[2020-04-16 10:07] LABS: CREATININE 0.9 mg/dL (0.55-1.3)
[2020-04-16 10:09] LABS: TOT PROT 5.6 g/dl (6.4-8.2)
[2020-04-16 10:11] LABS: BILIRUBIN,TOTAL 0.8 mg/dL (0.2-1)
[2020-04-16] MEDS: ALLOPURINOL 300 MG TABLET (FP) PO SCH (10:37)
[2020-04-16] MEDS: BUDESONIDE/FORMETEROL FUMARATE 80/4.5 mcg INHALER IH SCH ×2 (10:38→22:51)
[2020-04-16] MEDS: amLODIPine BESYLATE 5 MG TABLET (FP) PO SCH (10:38)
[2020-04-16] MEDS: DAPTOMYCIN IVPB SCH (11:17)
[2020-04-16] MEDS: SODIUM CHLORIDE IVPB SCH (11:17)
[2020-04-17 09:08] LABS: BASO % 0.6 % (0-2.0); EOS % 2.7 % (0-4.5); HEMATOCRIT 28.5 % (35.4-49); LYMPH % 10.7 % (8-40); MCHC 35.1 g/dl (32.0-35.9); MEAN CELL VOLUME 91.2 fl (80-96); MEAN PLT VOLUME 8.4 fl (7.5-11.1); MONO % 10.8 % (3.8-10.2); NEUT % 75.2 % (42.8-82.8); PLATELET COUNT 178 K/MM3 (134-434); RBC 3.13 M/mm3 (4.00-5.60); RDW 14.4 % (11.9-15.9); WHITE BLOOD COUNT 6.8 K/mm3 (4.0-10.0)
[2020-04-17 09:27] LABS: POTASSIUM 3.4 mmol/L (3.5-5.1)
[2020-04-17 09:33] LABS: CALCIUM 8.1 mg/dL (8.5-10.1)
[2020-04-17] MEDS: PANTOPRAZOLE 40 MG TABLET PO SCH ×2 (09:33→22:29)
[2020-04-17] MEDS: ALLOPURINOL 300 MG TABLET (FP) PO SCH (09:33)
[2020-04-17 09:34] LABS: ALBUMIN 2.7 g/dl (3.4-5.0)
[2020-04-17] MEDS: LOSARTAN POTASSIUM 50 MG TABLET PO SCH (09:34)
[2020-04-17] MEDS: FOLIC ACID 1 MG TABLET (FP) PO SCH (09:34)
[2020-04-17] MEDS: amLODIPine BESYLATE 5 MG TABLET (FP) PO SCH (09:34)
[2020-04-17] MEDS: BUDESONIDE/FORMETEROL FUMARATE 80/4.5 mcg INHALER IH SCH ×2 (09:34→22:29)
[2020-04-17 09:35] LABS: BLOOD UREA NITROGEN 12.2 mg/dL (7-18)
[2020-04-17 09:37] LABS: CREATININE 0.9 mg/dL (0.55-1.3)
[2020-04-17 09:39] LABS: BILIRUBIN,TOTAL 0.6 mg/dL (0.2-1); TOT PROT 5.6 g/dl (6.4-8.2)
[2020-04-17] MEDS: DAPTOMYCIN IVPB SCH (10:24)
[2020-04-17] MEDS: SODIUM CHLORIDE IVPB SCH (10:24)
[2020-04-17] MEDS ORDERED: POTASSIUM CHLORIDE TABS 10 MEQ TABLET.ER (FP) PO ONE (14:15)
[2020-04-18] MEDS ORDERED: PT OWN MED DRAWER 7, Y5N ONE (08:53)
[2020-04-18] MEDS: FOLIC ACID 1 MG TABLET (FP) PO SCH (09:00)
[2020-04-18] MEDS: amLODIPine BESYLATE 5 MG TABLET (FP) PO SCH (09:00)
[2020-04-18] MEDS: PANTOPRAZOLE 40 MG TABLET PO SCH ×2 (09:00→22:07)
[2020-04-18] MEDS: BUDESONIDE/FORMETEROL FUMARATE 80/4.5 mcg INHALER IH SCH ×2 (09:01→22:07)
[2020-04-18] MEDS: LOSARTAN POTASSIUM 50 MG TABLET PO SCH (09:01)
[2020-04-18] MEDS: ALLOPURINOL 300 MG TABLET (FP) PO SCH (09:01)
[2020-04-18 09:21] LABS: BASO % 0.9 % (0-2.0); EOS % 3.9 % (0-4.5); HEMATOCRIT 31.5 % (35.4-49); HEMOGLOBIN 10.7 GM/dL (11.7-16.9); MCH 31.3 pg (25.7-33.7); MEAN CELL VOLUME 91.9 fl (80-96); MONO % 11.2 % (3.8-10.2); PLATELET COUNT 218 K/MM3 (134-434); RBC 3.43 M/mm3 (4.00-5.60); RDW 14.7 % (11.9-15.9); WHITE BLOOD COUNT 7.5 K/mm3 (4.0-10.0)
[2020-04-18 09:44] LABS: POTASSIUM 4.2 mmol/L (3.5-5.1)
[2020-04-18 10:08] LABS: CALCIUM 8.6 mg/dL (8.5-10.1)
[2020-04-18 10:09] LABS: BLOOD UREA NITROGEN 12.9 mg/dL (7-18)
[2020-04-18 10:12] LABS: CREATININE 0.9 mg/dL (0.55-1.3)
[2020-04-18 10:13] LABS: TOT PROT 6.2 g/dl (6.4-8.2)
[2020-04-18] MEDS: SODIUM CHLORIDE IVPB SCH (11:40)
[2020-04-18] MEDS: DAPTOMYCIN IVPB SCH (11:40)
[2020-04-19] MEDS ORDERED: PT OWN MED DRAWER 7, Y5N ONE ×2 (09:17→09:21)
[2020-04-19] MEDS: BUDESONIDE/FORMETEROL FUMARATE 80/4.5 mcg INHALER IH SCH ×2 (09:24→21:21)
[2020-04-19] MEDS: PANTOPRAZOLE 40 MG TABLET PO SCH ×2 (09:25→21:22)
[2020-04-19] MEDS: amLODIPine BESYLATE 5 MG TABLET (FP) PO SCH (09:25)
[2020-04-19] MEDS: ALLOPURINOL 300 MG TABLET (FP) PO SCH (09:26)
[2020-04-19] MEDS: FOLIC ACID 1 MG TABLET (FP) PO SCH (09:26)
[2020-04-19] MEDS: LOSARTAN POTASSIUM 50 MG TABLET PO SCH (09:26)
[2020-04-19] MEDS: DAPTOMYCIN IVPB SCH (12:33)
[2020-04-19] MEDS: SODIUM CHLORIDE IVPB SCH (12:33)
[2020-04-20 08:25] LABS: POTASSIUM 4.1 mmol/L (3.5-5.1)
[2020-04-20 08:27] LABS: HEMATOCRIT 35.4 % (35.4-49); HEMOGLOBIN 12.2 GM/dL (11.7-16.9); MCH 31.8 pg (25.7-33.7); MCHC 34.5 g/dl (32.0-35.9); MEAN CELL VOLUME 92.1 fl (80-96); MEAN PLT VOLUME 7.6 fl (7.5-11.1); PLATELET COUNT 290 K/MM3 (134-434); RBC 3.84 M/mm3 (4.00-5.60); RDW 14.3 % (11.9-15.9); WHITE BLOOD COUNT 9.3 K/mm3 (4.0-10.0)
[2020-04-20 08:33] LABS: ALBUMIN 3.3 g/dl (3.4-5.0); BLOOD UREA NITROGEN 12.4 mg/dL (7-18); CALCIUM 8.7 mg/dL (8.5-10.1)
[2020-04-20 08:37] LABS: BILIRUBIN,TOTAL 1.4 mg/dL (0.2-1); CREATININE 1.1 mg/dL (0.55-1.3)
[2020-04-20 08:38] LABS: TOT PROT 6.8 g/dl (6.4-8.2)
[2020-04-20] MEDS ORDERED: PT OWN MED DRAWER 7, Y5N ONE (10:05)
[2020-04-20] MEDS: ALLOPURINOL 300 MG TABLET (FP) PO SCH (10:23)
[2020-04-20] MEDS: FOLIC ACID 1 MG TABLET (FP) PO SCH (10:23)
[2020-04-20] MEDS: LOSARTAN POTASSIUM 50 MG TABLET PO SCH (10:23)
[2020-04-20] MEDS: amLODIPine BESYLATE 5 MG TABLET (FP) PO SCH (10:23)
[2020-04-20] MEDS: DAPTOMYCIN IVPB SCH (10:24)
[2020-04-20] MEDS: SODIUM CHLORIDE IVPB SCH (10:24)
[2020-04-20] MEDS: BUDESONIDE/FORMETEROL FUMARATE 80/4.5 mcg INHALER IH SCH (10:24)
[2020-04-20] MEDS: PANTOPRAZOLE 40 MG TABLET PO SCH (10:24)
[2020-04-20 15:41] VITALS: BP 124/53; PULSE 53; TEMP 98.5
== END 2020-04-20 17:00 | disposition home or self-care (01) | DRG 872 ==
LOC: JER 17:06 → JERBED 18:11 → J6S 04-12 03:30
PROVIDERS: ADMIT Internal Medicine; ATTEND Family Medicine
PROC: 0DB78ZX Excision of Stomach, Pylorus, Via Natural or Artificial Opening Endoscopic, Diagnostic (ICD-10-PCS; principal; 2020-04-15 09:00)
PROC: 05HY33Z Insertion of Infusion Device into Upper Vein, Percutaneous Approach (ICD-10-PCS; 2020-04-20)
DX: R78.81 Bacteremia (principal); E11.621 Type 2 diabetes mellitus with foot ulcer; E11.51 Type 2 diabetes mellitus with diabetic peripheral angiopathy without gangrene; K26.9 Duodenal ulcer, unspecified as acute or chronic, without hemorrhage or perforation; B95.61 Methicillin susceptible Staphylococcus aureus infection as the cause of diseases classified elsewhere; L97.529 Non-pressure chronic ulcer of other part of left foot with unspecified severity; E78.5 Hyperlipidemia, unspecified; Z87.891 Personal history of nicotine dependence; I10 Essential (primary) hypertension
CPT/HCPCS: 11042; 36415; 36569; 71045-TC-FY; 71046-TC-FY; 71270-TC; 73630-TC-LT; 73718-TC-LT; 74178-TC; 77001-TC-FY; 78804-TC; 80053; 81003; 82550; 82941; 83605; 83690; 83735; 84484; 85025; 85027; 85610; 85651; 85730; 86140; 87040; 87077; 87086; 87186; 87804; 88305-TC; 93005; 93010; 93306-TC; 94760; 99285-25; A6021; A9571; C1751; C9803; J0878; Q9967; U0003

== ENCOUNTER 2020-08-14 04:56 | Day surgery (SDC) | payer OTHER, BC ==
[2020-08-10 16:20] VITALS: BMI 28.4
[2020-08-14] MEDS ORDERED: PROPOFOL 20 ML ONE ×3 (07:24)
[2020-08-14] MEDS ORDERED: MIDAZOLAM HCL 2 MG/2 ML SINGLE DOSE VIAL ONE (07:24)
[2020-08-14] MEDS ORDERED: SUCCINYLCHOLINE CHLORIDE 200 MG/10 ML SYRINGE ONE (07:24)
[2020-08-14] MEDS ORDERED: LIDOCAINE HCL 2% (20ML MULTI-DOSE VIAL) ONE ×2 (07:31→07:45)
[2020-08-14] MEDS ORDERED: BUPIVACAINE HCL 100 ML ONE (07:32)
[2020-08-14] MEDS ORDERED: DEXAMETHASONE SOD PHOSPHATE 4 MG/1 ML VIAL ONE (07:32)
[2020-08-14] MEDS ORDERED: LIDOCAINE HCL 2% (50ML VIAL) NR ONE (07:41)
[2020-08-14] MEDS ORDERED: ATROPINE SULFATE 1 MG/10 ML DISP.SYRIN ONE (08:59)
[2020-08-14] MEDS ORDERED: GLYCOPYRROLATE 0.2 MG/1 ML VIAL ONE (08:59)
[2020-08-14] MEDS ORDERED: ONDANSETRON 4 MG/2 ML VIAL IVPUSH PRN (10:19)
[2020-08-14] MEDS ORDERED: oxyCODONE HCL 5 MG TABLET PO PRN (10:19)
[2020-08-14] MEDS ORDERED: LACTATED RINGERS SOLUTION 1,000 ML IV SCH (10:30)
[2020-08-14 12:14] VITALS: BP 111/54; PULSE 51; TEMP 98.1
== END 2020-08-14 12:00 | disposition home or self-care (01) ==
LOC: JASU-SURG 04:56
PROVIDERS: ATTEND Student in an Organized Health Care Education/Training Program
PROC: 0QSR04Z Reposition Left Toe Phalanx with Internal Fixation Device, Open Approach (ICD-10-PCS; 2020-08-14)
PROC: 0JBR0ZZ Excision of Left Foot Subcutaneous Tissue and Fascia, Open Approach (ICD-10-PCS; principal; 2020-08-14 07:59)
DX: M20.5X2 Other deformities of toe(s) (acquired), left foot (principal); E11.621 Type 2 diabetes mellitus with foot ulcer; L97.529 Non-pressure chronic ulcer of other part of left foot with unspecified severity; M21.612 Bunion of left foot
CPT/HCPCS: 73630-TC-LT; 88304-TC; 88311-TC; 93005; 93010; 94760

== ENCOUNTER 2020-09-11 13:47 | Inpatient (IN) | payer OTHER, BC ==
[2020-09-11] MEDS ORDERED: VANCOMYCIN 1 GM in D5W (PRE-DOCKED) 1,000 MG/250 ML IVPB ONE (16:06)
[2020-09-11] MEDS ORDERED: VANCOMYCIN 1 GRAM (PRE-DOCKED) 1,000 MG/250 ML BAG IVPB ONE (16:12)
[2020-09-11 16:25] LABS: BASO % 0.6 % (0-2.0); EOS % 1.7 % (0-4.5); HEMATOCRIT 38.5 % (35.4-49); HEMOGLOBIN 13.1 GM/dL (11.7-16.9); LYMPH % 12.6 % (8-40); MCH 30.4 pg (25.7-33.7); MCHC 34.1 g/dl (32.0-35.9); MEAN CELL VOLUME 89.2 fl (80-96); MONO % 15.2 % (3.8-10.2); NEUT % 69.9 % (42.8-82.8); PLATELET COUNT 132 10^3/uL (134-434); RBC 4.31 M/mm3 (4.00-5.60); RDW 16.4 % (11.9-15.9); WHITE BLOOD COUNT 8.6 K/mm3 (4.0-10.0)
[2020-09-11 16:31] LABS: INR 1.02 (0.83-1.09); PROTHROMBIN TIME (PATIENT) 12.5 SEC (9.7-13.0)
[2020-09-11 16:33] LABS: ACTIVATED PTT 28.9 SECONDS (25.2-36.5)
[2020-09-11 16:51] LABS: CHLORIDE 103 mmol/L (98-107); SODIUM 136 mmol/L (136-145)
[2020-09-11 16:52] LABS: CALCIUM 8.9 mg/dL (8.5-10.1)
[2020-09-11 16:54] LABS: ALBUMIN 3.6 g/dl (3.4-5.0); ANION GAP 9 MMOL/L (8-16); BLOOD UREA NITROGEN 22.8 mg/dL (7-18); CO2 24 mmol/L (21-32); GLUCOSE,RANDOM 117 mg/dL (74-106)
[2020-09-11 16:57] LABS: CREATININE 1.2 mg/dL (0.55-1.3); SGOT/AST 32 U/L (15-37); SGPT/ALT 39 U/L (13-61)
[2020-09-11 16:58] LABS: BILIRUBIN,TOTAL 0.9 mg/dL (0.2-1); TOT PROT 6.9 g/dl (6.4-8.2)
[2020-09-11 16:59] LABS: ALK PHOS 117 U/L (45-117)
[2020-09-11 17:04] LABS: LACTIC ACID 2.4 mmol/L (0.4-2.0)
[2020-09-11 17:05] LABS: ERYTHROCYTE SEDIMENTATION RATE 14 mm/hr (0-20)
[2020-09-11] MEDS ORDERED: SODIUM CHLORIDE 0.9% 500 ML INFUS.BAG IV ONE (18:06)
[2020-09-11 22:32] LABS: URINE APPEARANCE CLEAR; URINE BILIRUBIN NEGATIVE (NEGATIVE); URINE COLOR YELLOW; URINE GLUCOSE (UA) NEGATIVE (NEGATIVE); URINE KETONE NEGATIVE (NEGATIVE); URINE LEUK ESTERASE NEGATIVE (NEGATIVE); URINE NITRITE NEGATIVE (NEGATIVE); URINE PROTEIN NEGATIVE (NEGATIVE); URINE UROBILINOGEN 0.2 mg/dL (0.2-1.0)
[2020-09-12 03:11] VITALS: BMI 28.9
[2020-09-12] MEDS: INSULIN SLIDING SCALE (NOVOLOG) 1 VIAL SQ SCH ×4 (06:33→22:32)
[2020-09-12 09:32] LABS: BASO % 0.7 % (0-2.0); EOS % 2.2 % (0-4.5); HEMATOCRIT 36.8 % (35.4-49); HEMOGLOBIN 12.6 GM/dL (11.7-16.9); LYMPH % 11.1 % (8-40); MCH 30.2 pg (25.7-33.7); MCHC 34.1 g/dl (32.0-35.9); MEAN CELL VOLUME 88.4 fl (80-96); MEAN PLT VOLUME 8.7 fl (7.5-11.1); MONO % 11.7 % (3.8-10.2); NEUT % 74.3 % (42.8-82.8); PLATELET COUNT 129 10^3/uL (134-434); RBC 4.17 M/mm3 (4.00-5.60); RDW 16.3 % (11.9-15.9); WHITE BLOOD COUNT 6.7 K/mm3 (4.0-10.0)
[2020-09-12 09:34] LABS: ALBUMIN 3.3 g/dl (3.4-5.0); BLOOD UREA NITROGEN 18.8 mg/dL (7-18); CALCIUM 8.4 mg/dL (8.5-10.1)
[2020-09-12 09:38] LABS: BILIRUBIN,TOTAL 0.8 mg/dL (0.2-1); TOT PROT 6.1 g/dl (6.4-8.2)
[2020-09-12] MEDS ORDERED: PT OWN MED DRAWER 7, Y5N ONE (09:52)
[2020-09-12] MEDS ORDERED: CHOLECALCIFEROL (VIT D3) 400 UNIT (10 MCG) TABLET PO SCH (10:00)
[2020-09-12] MEDS: amLODIPine BESYLATE 5 MG TABLET (FP) PO SCH (10:20)
[2020-09-12] MEDS: FUROSEMIDE 20 MG TABLET (FP) PO SCH (10:23)
[2020-09-12] MEDS: FOLIC ACID 1 MG TABLET (FP) PO SCH (10:23)
[2020-09-12] MEDS: ASPIRIN COATED 81 MG TABLET.EC PO SCH (10:23)
[2020-09-12] MEDS: ALLOPURINOL 300 MG TABLET (FP) PO SCH (11:40)
[2020-09-12] MEDS: BUDESONIDE/FORMETEROL FUMARATE 80/4.5 mcg INHALER IH SCH ×2 (11:41→22:32)
[2020-09-12] MEDS: VANCOMYCIN 1 GRAM (PRE-DOCKED) 1,000 MG/250 ML BAG IVPB SCH ×2 (11:57→22:27)
[2020-09-12] MEDS ORDERED: VANCOMYCIN/WATER BAGS 1,250 MG/250 ML BAG IVPB SCH (16:00)
[2020-09-12] MEDS ORDERED: INSULIN (NOVOLOG) ASPART 100 UNITS/ML 10ML VIAL ONE (16:59)
[2020-09-12] MEDS: ALBUTEROL SO4 2.5/IPRATROPIUM 0.5 INH SOL 3 ML VIAL.NEB. NEB PRN (21:42)
[2020-09-12] MEDS: ROSUVASTATIN CA 10 MG TABLET (FP) PO SCH (22:29)
[2020-09-13] MEDS: INSULIN SLIDING SCALE (NOVOLOG) 1 VIAL SQ SCH ×4 (06:04→21:40)
[2020-09-13] MEDS: ALBUTEROL SO4 2.5/IPRATROPIUM 0.5 INH SOL 3 ML VIAL.NEB. NEB PRN (07:40)
[2020-09-13] MEDS ORDERED: PT OWN MED DRAWER 7, Y5N ONE (10:01)
[2020-09-13] MEDS: VANCOMYCIN 1 GRAM (PRE-DOCKED) 1,000 MG/250 ML BAG IVPB SCH (10:10)
[2020-09-13] MEDS: amLODIPine BESYLATE 5 MG TABLET (FP) PO SCH (10:12)
[2020-09-13] MEDS: FUROSEMIDE 20 MG TABLET (FP) PO SCH (10:12)
[2020-09-13] MEDS: ASPIRIN COATED 81 MG TABLET.EC PO SCH (10:12)
[2020-09-13] MEDS: CHOLECALCIFEROL (VIT D3) 1,000 UNIT (25 MCG) TABLET PO SCH (10:12)
[2020-09-13] MEDS: FOLIC ACID 1 MG TABLET (FP) PO SCH (10:12)
[2020-09-13] MEDS: BUDESONIDE/FORMETEROL FUMARATE 80/4.5 mcg INHALER IH SCH ×2 (10:13→21:39)
[2020-09-13] MEDS: ALLOPURINOL 300 MG TABLET (FP) PO SCH (10:14)
[2020-09-13] MEDS: ROSUVASTATIN CA 10 MG TABLET (FP) PO SCH (21:39)
[2020-09-13] MEDS: VANCOMYCIN/WATER FOR INJ (PEG) 750 MG/150 ML BAG IVPB SCH (21:39)
[2020-09-14] MEDS: INSULIN SLIDING SCALE (NOVOLOG) 1 VIAL SQ SCH ×4 (07:56→21:47)
[2020-09-14 09:33] LABS: HEMATOCRIT 38.3 % (35.4-49); HEMOGLOBIN 13.1 GM/dL (11.7-16.9); MCH 30.6 pg (25.7-33.7); MCHC 34.2 g/dl (32.0-35.9); MEAN CELL VOLUME 89.3 fl (80-96); MEAN PLT VOLUME 8.5 fl (7.5-11.1); PLATELET COUNT 155 10^3/uL (134-434); RBC 4.29 M/mm3 (4.00-5.60); RDW 16.1 % (11.9-15.9); WHITE BLOOD COUNT 8.3 K/mm3 (4.0-10.0)
[2020-09-14 10:00] LABS: CALCIUM 8.6 mg/dL (8.5-10.1)
[2020-09-14 10:01] LABS: ALBUMIN 3.4 g/dl (3.4-5.0); BLOOD UREA NITROGEN 15.4 mg/dL (7-18)
[2020-09-14 10:06] LABS: BILIRUBIN,TOTAL 0.6 mg/dL (0.2-1); TOT PROT 6.5 g/dl (6.4-8.2)
[2020-09-14] MEDS: FUROSEMIDE 20 MG TABLET (FP) PO SCH (10:40)
[2020-09-14] MEDS: ASPIRIN COATED 81 MG TABLET.EC PO SCH (10:40)
[2020-09-14] MEDS: CHOLECALCIFEROL (VIT D3) 1,000 UNIT (25 MCG) TABLET PO SCH (10:40)
[2020-09-14] MEDS: ALLOPURINOL 300 MG TABLET (FP) PO SCH (10:40)
[2020-09-14] MEDS: FOLIC ACID 1 MG TABLET (FP) PO SCH (10:41)
[2020-09-14] MEDS: BUDESONIDE/FORMETEROL FUMARATE 80/4.5 mcg INHALER IH SCH ×2 (10:41→21:47)
[2020-09-14] MEDS: amLODIPine BESYLATE 5 MG TABLET (FP) PO SCH (10:41)
[2020-09-14] MEDS: VANCOMYCIN/WATER FOR INJ (PEG) 750 MG/150 ML BAG IVPB SCH (10:47)
[2020-09-14] MEDS: DAPTOMYCIN 720 MG in SODIUM CHLORIDE 50 ML IVPB SCH (16:05)
[2020-09-15] MEDS: INSULIN SLIDING SCALE (NOVOLOG) 1 VIAL SQ SCH ×4 (06:32→21:42)
[2020-09-15] MEDS: ASPIRIN COATED 81 MG TABLET.EC PO SCH (10:28)
[2020-09-15] MEDS: ALLOPURINOL 300 MG TABLET (FP) PO SCH (10:28)
[2020-09-15] MEDS: FOLIC ACID 1 MG TABLET (FP) PO SCH (10:28)
[2020-09-15] MEDS: amLODIPine BESYLATE 5 MG TABLET (FP) PO SCH (10:28)
[2020-09-15] MEDS: CHOLECALCIFEROL (VIT D3) 1,000 UNIT (25 MCG) TABLET PO SCH (10:28)
[2020-09-15] MEDS: FUROSEMIDE 20 MG TABLET (FP) PO SCH (10:28)
[2020-09-15] MEDS: BUDESONIDE/FORMETEROL FUMARATE 80/4.5 mcg INHALER IH SCH ×2 (10:28→21:42)
[2020-09-15] MEDS: DAPTOMYCIN 720 MG in SODIUM CHLORIDE 50 ML IVPB SCH (15:32)
[2020-09-15] MEDS ORDERED: ACETAMINOPHEN 1000 MG/100 ML VIAL (NON FORMULARY) IVPB ONE (22:49)
[2020-09-16] MEDS ORDERED: ACETAMINOPHEN 325 MG TABLET (FP) PO PRN (05:00)
[2020-09-16] MEDS: INSULIN SLIDING SCALE (NOVOLOG) 1 VIAL SQ SCH ×4 (06:11→21:36)
[2020-09-16 09:03] LABS: CALCIUM 8.7 mg/dL (8.5-10.1)
[2020-09-16 09:04] LABS: ALBUMIN 3.4 g/dl (3.4-5.0); BLOOD UREA NITROGEN 15.4 mg/dL (7-18)
[2020-09-16 09:07] LABS: CREATININE 1.1 mg/dL (0.55-1.3)
[2020-09-16] MEDS ORDERED: PT OWN MED DRAWER 7, Y5N ONE (09:07)
[2020-09-16 09:09] LABS: BILIRUBIN,TOTAL 0.6 mg/dL (0.2-1); TOT PROT 6.7 g/dl (6.4-8.2)
[2020-09-16 09:11] LABS: BASO % 0.9 % (0-2.0); HEMATOCRIT 38.1 % (35.4-49); LYMPH % 9.5 % (8-40); MCH 30.5 pg (25.7-33.7); MEAN CELL VOLUME 89.7 fl (80-96); MEAN PLT VOLUME 8.4 fl (7.5-11.1); MONO % 8.7 % (3.8-10.2); NEUT % 77.9 % (42.8-82.8); PLATELET COUNT 190 10^3/uL (134-434); RBC 4.25 M/mm3 (4.00-5.60); RDW 16.4 % (11.9-15.9); WHITE BLOOD COUNT 10.6 K/mm3 (4.0-10.0)
[2020-09-16] MEDS: FUROSEMIDE 20 MG TABLET (FP) PO SCH (09:11)
[2020-09-16] MEDS: amLODIPine BESYLATE 5 MG TABLET (FP) PO SCH (09:11)
[2020-09-16] MEDS: CHOLECALCIFEROL (VIT D3) 1,000 UNIT (25 MCG) TABLET PO SCH (09:11)
[2020-09-16] MEDS: ALLOPURINOL 300 MG TABLET (FP) PO SCH (09:11)
[2020-09-16] MEDS: ASPIRIN COATED 81 MG TABLET.EC PO SCH (09:11)
[2020-09-16] MEDS: FOLIC ACID 1 MG TABLET (FP) PO SCH (09:11)
[2020-09-16] MEDS: BUDESONIDE/FORMETEROL FUMARATE 80/4.5 mcg INHALER IH SCH ×2 (09:13→21:37)
[2020-09-16] MEDS: CEFAZOLIN 2 GM/D5W 2 GM/50 ML ML IVPB SCH ×2 (13:38→17:38)
[2020-09-17] MEDS: CEFAZOLIN 2 GM/D5W 2 GM/50 ML ML IVPB SCH ×3 (01:49→17:41)
[2020-09-17] MEDS: INSULIN SLIDING SCALE (NOVOLOG) 1 VIAL SQ SCH ×4 (06:14→21:29)
[2020-09-17 09:11] LABS: BASO % 0.6 % (0-2.0); EOS % 3.3 % (0-4.5); HEMATOCRIT 35.9 % (35.4-49); HEMOGLOBIN 12.2 GM/dL (11.7-16.9); LYMPH % 9.8 % (8-40); MCH 30.9 pg (25.7-33.7); MCHC 34.1 g/dl (32.0-35.9); MEAN CELL VOLUME 90.4 fl (80-96); MEAN PLT VOLUME 8.2 fl (7.5-11.1); MONO % 9.1 % (3.8-10.2); NEUT % 77.2 % (42.8-82.8); PLATELET COUNT 169 10^3/uL (134-434); RBC 3.97 M/mm3 (4.00-5.60); RDW 16.2 % (11.9-15.9); WHITE BLOOD COUNT 8.5 K/mm3 (4.0-10.0)
[2020-09-17 09:36] LABS: CALCIUM 8.2 mg/dL (8.5-10.1)
[2020-09-17 09:37] LABS: ALBUMIN 3.1 g/dl (3.4-5.0)
[2020-09-17 09:41] LABS: BILIRUBIN,TOTAL 0.4 mg/dL (0.2-1)
[2020-09-17] MEDS ORDERED: PT OWN MED DRAWER 7, Y5N ONE (10:22)
[2020-09-17] MEDS: CHOLECALCIFEROL (VIT D3) 1,000 UNIT (25 MCG) TABLET PO SCH (10:26)
[2020-09-17] MEDS: ASPIRIN COATED 81 MG TABLET.EC PO SCH (10:26)
[2020-09-17] MEDS: FOLIC ACID 1 MG TABLET (FP) PO SCH (10:26)
[2020-09-17] MEDS: FUROSEMIDE 20 MG TABLET (FP) PO SCH (10:26)
[2020-09-17] MEDS: amLODIPine BESYLATE 5 MG TABLET (FP) PO SCH (10:26)
[2020-09-17] MEDS: BUDESONIDE/FORMETEROL FUMARATE 80/4.5 mcg INHALER IH SCH ×2 (10:27→21:31)
[2020-09-17] MEDS: ALLOPURINOL 300 MG TABLET (FP) PO SCH (10:27)
[2020-09-17] MEDS: ROSUVASTATIN CA 10 MG TABLET (FP) PO SCH (21:27)
[2020-09-18] MEDS: CEFAZOLIN 2 GM/D5W 2 GM/50 ML ML IVPB SCH ×3 (02:16→17:41)
[2020-09-18] MEDS: INSULIN SLIDING SCALE (NOVOLOG) 1 VIAL SQ SCH ×4 (06:35→21:15)
[2020-09-18 09:21] LABS: CALCIUM 8.5 mg/dL (8.5-10.1)
[2020-09-18 09:22] LABS: MAGNESIUM 2.2 mg/dL (1.8-2.4)
[2020-09-18] MEDS ORDERED: PT OWN MED DRAWER 7, Y5N ONE (09:49)
[2020-09-18] MEDS: FUROSEMIDE 20 MG TABLET (FP) PO SCH (09:54)
[2020-09-18] MEDS: FOLIC ACID 1 MG TABLET (FP) PO SCH (09:54)
[2020-09-18] MEDS: ASPIRIN COATED 81 MG TABLET.EC PO SCH (09:54)
[2020-09-18] MEDS: ALLOPURINOL 300 MG TABLET (FP) PO SCH (09:55)
[2020-09-18] MEDS: CHOLECALCIFEROL (VIT D3) 1,000 UNIT (25 MCG) TABLET PO SCH (09:55)
[2020-09-18] MEDS: amLODIPine BESYLATE 5 MG TABLET (FP) PO SCH (09:55)
[2020-09-18] MEDS: BUDESONIDE/FORMETEROL FUMARATE 80/4.5 mcg INHALER IH SCH ×2 (09:55→21:15)
[2020-09-18] MEDS: ROSUVASTATIN CA 10 MG TABLET (FP) PO SCH (21:11)
[2020-09-19] MEDS: CEFAZOLIN 2 GM/D5W 2 GM/50 ML ML IVPB SCH ×3 (01:58→16:17)
[2020-09-19] MEDS: INSULIN SLIDING SCALE (NOVOLOG) 1 VIAL SQ SCH ×3 (06:21→16:23)
[2020-09-19] MEDS ORDERED: PT OWN MED DRAWER 7, Y5N ONE (09:41)
[2020-09-19] MEDS: amLODIPine BESYLATE 5 MG TABLET (FP) PO SCH (09:42)
[2020-09-19] MEDS: ALLOPURINOL 300 MG TABLET (FP) PO SCH (09:43)
[2020-09-19] MEDS: BUDESONIDE/FORMETEROL FUMARATE 80/4.5 mcg INHALER IH SCH (09:43)
[2020-09-19] MEDS: ASPIRIN COATED 81 MG TABLET.EC PO SCH (09:43)
[2020-09-19] MEDS: FUROSEMIDE 20 MG TABLET (FP) PO SCH (09:43)
[2020-09-19] MEDS: FOLIC ACID 1 MG TABLET (FP) PO SCH (09:43)
[2020-09-19] MEDS: CHOLECALCIFEROL (VIT D3) 1,000 UNIT (25 MCG) TABLET PO SCH (09:43)
[2020-09-19 13:46] VITALS: BP 141/67; PULSE 52; TEMP 97.7
== END 2020-09-19 17:55 | disposition home health service (06) | DRG 603 ==
LOC: JER 13:47 → JERBED 18:19 → J6S 09-12 01:51
PROVIDERS: ADMIT Internal Medicine; ATTEND Family Medicine
PROC: 02HV33Z Insertion of Infusion Device into Superior Vena Cava, Percutaneous Approach (ICD-10-PCS; principal; 2020-09-18)
PROC: B518ZZA Fluoroscopy of Superior Vena Cava, Guidance (ICD-10-PCS; 2020-09-18)
DX: L03.116 Cellulitis of left lower limb (principal); L97.528 Non-pressure chronic ulcer of other part of left foot with other specified severity; I10 Essential (primary) hypertension; J44.9 Chronic obstructive pulmonary disease, unspecified; E78.5 Hyperlipidemia, unspecified; K75.4 Autoimmune hepatitis; E11.51 Type 2 diabetes mellitus with diabetic peripheral angiopathy without gangrene; E11.621 Type 2 diabetes mellitus with foot ulcer; M79.89 Other specified soft tissue disorders; I71.4 Abdominal aortic aneurysm, without rupture; B95.61 Methicillin susceptible Staphylococcus aureus infection as the cause of diseases classified elsewhere; Z89.422 Acquired absence of other left toe(s); Z86.19 Personal history of other infectious and parasitic diseases; Z98.890 Other specified postprocedural states; Z86.718 Personal history of other venous thrombosis and embolism; Z85.118 Personal history of other malignant neoplasm of bronchus and lung
CPT/HCPCS: 11721; 36415; 36569; 71045-TC-FY; 73630-TC-LT; 74178-TC; 77001-TC-FY; 80048; 80053; 81003; 82550; 82962; 83605; 83735; 84484; 85025; 85027; 85610; 85651; 85730; 86140; 86850; 86900; 86901; 87040; 87086; 87186; 93005; 93010; 93306-TC; 93971; 93971-TC; 94640; 99285-25; C1751; C9803; G0463-25; G0480; J0131; J0878; Q9967; U0003; U0005

== ENCOUNTER 2021-12-03 00:38 | Observation (INO) | payer OTHER, BC ==
[2021-12-03 01:10] VITALS: BMI 38.3
[2021-12-03] MEDS ORDERED: ONDANSETRON 4 MG/2 ML VIAL IVPUSH ONE (02:16)
[2021-12-03] MEDS ORDERED: ONDANSETRON 4 MG/2 ML VIAL ONE (02:17)
[2021-12-03 02:21] LABS: PH,URINE 6.5 (5.0-8.0); URINE APPEARANCE CLEAR; URINE BILIRUBIN NEGATIVE (NEGATIVE); URINE COLOR YELLOW; URINE GLUCOSE (UA) NEGATIVE (NEGATIVE); URINE KETONE NEGATIVE (NEGATIVE); URINE LEUK ESTERASE NEGATIVE (NEGATIVE); URINE NITRITE NEGATIVE (NEGATIVE); URINE PROTEIN NEGATIVE (NEGATIVE); URINE UROBILINOGEN 0.2 mg/dL (0.2-1.0)
[2021-12-03 02:36] LABS: EOS % 3.2 % (0-4.5); MCHC 32.5 g/dl (32.0-35.9)
[2021-12-03 02:45] LABS: HEMATOCRIT 33.3 % (35.4-49); HEMOGLOBIN 10.8 GM/dL (11.7-16.9); MCH 26.3 pg (25.7-33.7); MEAN CELL VOLUME 80.9 fl (80-96); MEAN PLT VOLUME 8.4 fl (7.5-11.1); MONO % 11.6 % (3.8-10.2); NEUT % 77.2 % (42.8-82.8); RBC 4.11 M/mm3 (4.00-5.60); RDW 16.8 % (11.9-15.9)
[2021-12-03 02:55] LABS: ALBUMIN 3.6 g/dl (3.4-5.0); CALCIUM 8.4 mg/dL (8.5-10.1); MAGNESIUM 1.9 mg/dL (1.8-2.4)
[2021-12-03 02:56] LABS: BLOOD UREA NITROGEN 24.6 mg/dL (7-18)
[2021-12-03 02:57] LABS: CREATININE 1.1 mg/dL (0.55-1.3)
[2021-12-03 02:59] LABS: PHOSPHOROUS 2.9 mg/dL (2.5-4.9)
[2021-12-03 03:00] LABS: BILIRUBIN,TOTAL 0.4 mg/dL (0.2-1); TOT PROT 6.5 g/dl (6.4-8.2)
[2021-12-03 03:19] LABS: PLATELET COUNT 166 10^3/uL (134-434)
[2021-12-03] MEDS: FUROSEMIDE 20 MG TABLET (FP) PO SCH (10:17)
[2021-12-03] MEDS: PANTOPRAZOLE 40 MG TABLET PO SCH (10:17)
[2021-12-03] MEDS: CHOLECALCIFEROL (VIT D3) 1,000 UNIT (25 MCG) TABLET PO SCH (10:17)
[2021-12-03] MEDS: FOLIC ACID 1 MG TABLET (FP) PO SCH (10:17)
[2021-12-03] MEDS: ASPIRIN COATED 81 MG TABLET.EC PO SCH (10:17)
[2021-12-03] MEDS: BUDESONIDE/FORMETEROL FUMARATE 80/4.5 mcg INHALER IH SCH ×2 (11:00→21:44)
[2021-12-03 12:31] LABS: BASO % 0.6 % (0-2.0); EOS % 1.5 % (0-4.5); HEMATOCRIT 33.7 % (35.4-49); HEMOGLOBIN 10.7 GM/dL (11.7-16.9); LYMPH % 10.9 % (8-40); MCH 25.9 pg (25.7-33.7); MCHC 31.8 g/dl (32.0-35.9); MEAN CELL VOLUME 81.5 fl (80-96); MEAN PLT VOLUME 8.6 fl (7.5-11.1); MONO % 10.3 % (3.8-10.2); NEUT % 76.7 % (42.8-82.8); PLATELET COUNT 189 10^3/uL (134-434); RBC 4.13 M/mm3 (4.00-5.60); RDW 16.3 % (11.9-15.9); WHITE BLOOD COUNT 6.9 K/mm3 (4.0-10.0)
[2021-12-03 12:49] LABS: CHLORIDE 106 mmol/L (98-107); SODIUM 141 mmol/L (136-145)
[2021-12-03 12:51] LABS: CALCIUM 8.6 mg/dL (8.5-10.1)
[2021-12-03 12:52] LABS: ALBUMIN 3.3 g/dl (3.4-5.0); ANION GAP 6 MMOL/L (8-16); BLOOD UREA NITROGEN 18.4 mg/dL (7-18); CO2 28 mmol/L (21-32); GLUCOSE,RANDOM 161 mg/dL (74-106)
[2021-12-03 12:55] LABS: IRON SERUM 30 ug/dL (50-175); SGOT/AST 23 U/L (15-37); SGPT/ALT 28 U/L (13-61)
[2021-12-03 12:56] LABS: TOT PROT 6.2 g/dl (6.4-8.2); TOTAL IRON BINDING CAPACITY 358 ug/dL (250-450)
[2021-12-03 12:57] LABS: BILIRUBIN,TOTAL 0.6 mg/dL (0.2-1)
[2021-12-03 12:58] LABS: ALK PHOS 102 U/L (45-117)
[2021-12-03] MEDS: CEPHALEXIN MONOHYDRATE 500 MG CAPSULE (UD) PO SCH ×2 (14:29→21:44)
[2021-12-03] MEDS ORDERED: ROSUVASTATIN CA 10 MG TABLET PO SCH (22:00)
[2021-12-04] MEDS: CEPHALEXIN MONOHYDRATE 500 MG CAPSULE (UD) PO SCH ×2 (04:29→13:02)
[2021-12-04] MEDS: PANTOPRAZOLE 40 MG TABLET PO SCH (09:52)
[2021-12-04] MEDS: ASPIRIN COATED 81 MG TABLET.EC PO SCH (09:52)
[2021-12-04] MEDS: CHOLECALCIFEROL (VIT D3) 1,000 UNIT (25 MCG) TABLET PO SCH (09:52)
[2021-12-04] MEDS: FUROSEMIDE 20 MG TABLET (FP) PO SCH (09:52)
[2021-12-04] MEDS: BUDESONIDE/FORMETEROL FUMARATE 80/4.5 mcg INHALER IH SCH (09:52)
[2021-12-04] MEDS: FOLIC ACID 1 MG TABLET (FP) PO SCH (09:52)
[2021-12-04 12:14] VITALS: BP 134/59; PULSE 65; RESP 22; TEMP 98.2
== END 2021-12-04 14:48 | disposition home or self-care (01) ==
LOC: JER 00:38 → JERBED 03:41 → J4W 08:34
PROVIDERS: ADMIT Internal Medicine; ATTEND Family Medicine
PROC: 3E033GC Introduction of Other Therapeutic Substance into Peripheral Vein, Percutaneous Approach (ICD-10-PCS; principal; 2021-12-03)
DX: I49.9 Cardiac arrhythmia, unspecified (principal); J44.9 Chronic obstructive pulmonary disease, unspecified; R55 Syncope and collapse; E11.9 Type 2 diabetes mellitus without complications; E78.5 Hyperlipidemia, unspecified; I47.1 Supraventricular tachycardia; K75.4 Autoimmune hepatitis; I73.9 Peripheral vascular disease, unspecified; Z20.822 Contact with and (suspected) exposure to COVID-19; Z95.0 Presence of cardiac pacemaker; Z88.8 Allergy status to other drugs, medicaments and biological substances; I71.40 Abdominal aortic aneurysm, without rupture, unspecified
CPT/HCPCS: 36415; 70450-TC; 71045-TC-FY; 80053; 81003; 82728; 83540; 83550; 83605; 83735; 84100; 84443; 84484; 85025; 86140; 87040; 87086; 93005; 93010; 96374; 97116-GP; 97161-GP; 99285-25; C9803-CS; G0378; U0003; U0005

== ENCOUNTER 2022-01-18 11:20 | Day surgery (SDC) | payer OTHER, BC ==
[2022-01-18] MEDS ORDERED: FERRIC CARBOXYMALTOSE 750 MG in SODIUM CHLORIDE 250 ML IVPB SCH (11:45)
[2022-01-18 12:11] VITALS: PULSE 60; TEMP 97.6
[2022-01-18 12:45] VITALS: BP 137/66; RESP 14
== END 2022-01-18 12:54 | disposition home or self-care (01) ==
LOC: FINFUSION 11:20 → FM/S 11:28 → FINFUSION 12:54
PROVIDERS: ATTEND Family Medicine
PROC: 3E033GC Introduction of Other Therapeutic Substance into Peripheral Vein, Percutaneous Approach (ICD-10-PCS; principal; 2022-01-18)
DX: D50.9 Iron deficiency anemia, unspecified (principal)
CPT/HCPCS: 96365; J1439

== ENCOUNTER 2022-01-25 11:16 | Day surgery (SDC) | payer OTHER, BC ==
[2022-01-25] MEDS ORDERED: FERRIC CARBOXYMALTOSE 750 MG in SODIUM CHLORIDE 250 ML IVPB SCH (11:45)
[2022-01-25 12:58] VITALS: BP 139/74; PULSE 65; RESP 18; TEMP 98.1
== END 2022-01-25 12:59 | disposition home or self-care (01) ==
LOC: FINFUSION 11:16 → FM/S 11:17 → FINFUSION 12:59
PROVIDERS: ATTEND Family Medicine
PROC: 3E033GC Introduction of Other Therapeutic Substance into Peripheral Vein, Percutaneous Approach (ICD-10-PCS; principal; 2022-01-25)
DX: D50.9 Iron deficiency anemia, unspecified (principal)
CPT/HCPCS: 96365; J1439

== ENCOUNTER 2022-02-05 11:16 | Inpatient (IN) | payer OTHER, BC ==
[2022-02-05 13:27] LABS: BASO % 0.8 % (0-2.0); EOS % 1.8 % (0-4.5); HEMATOCRIT 38.4 % (35.4-49); HEMOGLOBIN 11.9 GM/dL (11.7-16.9); LYMPH % 6.3 % (8-40); MCH 26.2 pg (25.7-33.7); MCHC 30.9 g/dl (32.0-35.9); MEAN CELL VOLUME 84.6 fl (80-96); MEAN PLT VOLUME 8.7 fl (7.5-11.1); MONO % 11.6 % (3.8-10.2); NEUT % 79.5 % (42.8-82.8); PLATELET COUNT 170 10^3/uL (134-434); RBC 4.55 M/mm3 (4.00-5.60); RDW 28.2 % (11.9-15.9); WHITE BLOOD COUNT 6.9 K/mm3 (4.0-10.0)
[2022-02-05 13:39] LABS: CALCIUM 8.1 mg/dL (8.5-10.1)
[2022-02-05 13:40] LABS: ALBUMIN 3.4 g/dl (3.4-5.0); BLOOD UREA NITROGEN 18.1 mg/dL (7-18)
[2022-02-05 13:43] LABS: CREATININE 1.1 mg/dL (0.55-1.3)
[2022-02-05 13:45] LABS: BILIRUBIN,TOTAL 0.8 mg/dL (0.2-1); TOT PROT 6.4 g/dl (6.4-8.2)
[2022-02-05 13:47] LABS: INR 1.28 (0.83-1.09); PROTHROMBIN TIME (PATIENT) 14.7 SEC (9.7-13.0)
[2022-02-05 13:48] LABS: N-TERMINAL BNP 4942.9 pg/ml (5-450)
[2022-02-05] MEDS ORDERED: FUROSEMIDE 40 MG/4 ML INJECTABLE VIAL IVPUSH ONE ×2 (14:04)
[2022-02-05] MEDS ORDERED: FUROSEMIDE 40 MG/4 ML INJECTABLE VIAL ONE (14:18)
[2022-02-05 15:18] LABS: ANISOCYTOSIS 2+; MACROCYTOSIS 0; OVALOCYTE 1+
[2022-02-05] MEDS ORDERED: ALBUTEROL SO4 0.083% IH SOL 2.5 MG/3 ML VIAL.NEB. NEB PRN (18:28)
[2022-02-05] MEDS ORDERED: ACETAMINOPHEN 325 MG TABLET (FP) PO PRN (18:28)
[2022-02-05 19:14] VITALS: RESP 18
[2022-02-05] MEDS: ROSUVASTATIN CA 10 MG TABLET PO SCH (21:36)
[2022-02-05] MEDS: BUDESONIDE/FORMETEROL FUMARATE 80/4.5 mcg INHALER IH SCH (21:36)
[2022-02-06 08:02] LABS: HEMATOCRIT 33.9 % (35.4-49); HEMOGLOBIN 10.8 GM/dL (11.7-16.9); MCH 26.7 pg (25.7-33.7); MEAN CELL VOLUME 83.6 fl (80-96); MEAN PLT VOLUME 8.5 fl (7.5-11.1); PLATELET COUNT 149 10^3/uL (134-434); RBC 4.05 M/mm3 (4.00-5.60); RDW 28.3 % (11.9-15.9); WHITE BLOOD COUNT 6.2 K/mm3 (4.0-10.0)
[2022-02-06 08:15] LABS: ALBUMIN 3.1 g/dl (3.4-5.0); BLOOD UREA NITROGEN 14.2 mg/dL (7-18)
[2022-02-06 08:18] LABS: CREATININE 0.9 mg/dL (0.55-1.3)
[2022-02-06 08:19] LABS: TOT PROT 5.5 g/dl (6.4-8.2)
[2022-02-06] MEDS ORDERED: POTASSIUM CHLORIDE TABS 10 MEQ TABLET.ER (FP) PO ONE (08:46)
[2022-02-06] MEDS ORDERED: FUROSEMIDE 40 MG/4 ML INJECTABLE VIAL IVPUSH SCH (10:00)
[2022-02-06] MEDS: PANTOPRAZOLE 40 MG TABLET PO SCH (11:53)
[2022-02-06] MEDS: ALLOPURINOL 300 MG TABLET (FP) PO SCH (11:53)
[2022-02-06] MEDS: FUROSEMIDE 40 MG/4 ML INJECTABLE VIAL IVPUSH SCH ×2 (11:54→22:17)
[2022-02-06] MEDS: BUDESONIDE/FORMETEROL FUMARATE 80/4.5 mcg INHALER IH SCH ×2 (11:55→22:17)
[2022-02-06] MEDS: KCL 10 MEQ IVPB 10 MEQ/100 ML INFUS.BAG IVPB SCH ×2 (11:55→15:29)
[2022-02-06 13:02] LABS: MAGNESIUM 1.7 mg/dL (1.8-2.4)
[2022-02-06 14:03] VITALS: BMI 13.4
[2022-02-06] MEDS ORDERED: MAGNESIUM OXIDE 400 MG TABLET (FP) PO ONE (14:07)
[2022-02-06] MEDS ORDERED: POTASSIUM CHLORIDE TABS 20 MEQ TABLET.ER (FP) PO ONE (18:00)
[2022-02-06] MEDS: ROSUVASTATIN CA 10 MG TABLET PO SCH (22:16)
[2022-02-07 08:33] LABS: BASO % 0.9 % (0-2.0); EOS % 2.7 % (0-4.5); HEMATOCRIT 39.4 % (35.4-49); HEMOGLOBIN 12.5 GM/dL (11.7-16.9); LYMPH % 9.3 % (8-40); MCH 26.5 pg (25.7-33.7); MCHC 31.8 g/dl (32.0-35.9); MEAN CELL VOLUME 83.4 fl (80-96); MEAN PLT VOLUME 8.3 fl (7.5-11.1); MONO % 12.1 % (3.8-10.2); PLATELET COUNT 192 10^3/uL (134-434); RBC 4.72 M/mm3 (4.00-5.60); RDW 27.8 % (11.9-15.9)
[2022-02-07 08:58] LABS: BLOOD UREA NITROGEN 11.7 mg/dL (7-18); CALCIUM 8.3 mg/dL (8.5-10.1); MAGNESIUM 1.8 mg/dL (1.8-2.4)
[2022-02-07] MEDS ORDERED: POTASSIUM CHLORIDE TABS 20 MEQ TABLET.ER (FP) PO ONE ×2 (09:06→12:43)
[2022-02-07] MEDS: ALLOPURINOL 300 MG TABLET (FP) PO SCH (09:29)
[2022-02-07] MEDS: PANTOPRAZOLE 40 MG TABLET PO SCH (09:30)
[2022-02-07] MEDS: BUDESONIDE/FORMETEROL FUMARATE 80/4.5 mcg INHALER IH SCH ×2 (09:31→22:00)
[2022-02-07] MEDS: FUROSEMIDE 40 MG/4 ML INJECTABLE VIAL IVPUSH SCH ×2 (09:31→22:03)
[2022-02-07] MEDS ORDERED: POTASSIUM CHLORIDE TABS 10 MEQ TABLET.ER (FP) PO SCH ×2 (10:00→12:43)
[2022-02-07] MEDS ORDERED: MAGNESIUM OXIDE 400 MG TABLET (FP) PO ONE (12:45)
[2022-02-07] MEDS: KCL 10 MEQ IVPB 10 MEQ/100 ML INFUS.BAG IVPB SCH ×2 (13:31→16:38)
[2022-02-07] MEDS: ROSUVASTATIN CA 10 MG TABLET PO SCH (22:02)
[2022-02-08] MEDS: BUDESONIDE/FORMETEROL FUMARATE 80/4.5 mcg INHALER IH SCH (09:55)
[2022-02-08] MEDS: FUROSEMIDE 40 MG/4 ML INJECTABLE VIAL IVPUSH SCH (09:56)
[2022-02-08] MEDS: PANTOPRAZOLE 40 MG TABLET PO SCH (09:56)
[2022-02-08] MEDS: ALLOPURINOL 300 MG TABLET (FP) PO SCH (09:56)
[2022-02-08 12:15] VITALS: BP 141/72; PULSE 65; TEMP 98.1
== END 2022-02-08 12:23 | disposition home or self-care (01) | DRG 291 ==
LOC: JER 11:16 → JERBED 14:32 → J4W 18:18
PROVIDERS: ADMIT Family Medicine; ATTEND Family Medicine
DX: I11.0 Hypertensive heart disease with heart failure (principal); I50.33 Acute on chronic diastolic (congestive) heart failure; J44.9 Chronic obstructive pulmonary disease, unspecified; E11.51 Type 2 diabetes mellitus with diabetic peripheral angiopathy without gangrene; E78.5 Hyperlipidemia, unspecified; E87.6 Hypokalemia; E87.70 Fluid overload, unspecified; Z95.0 Presence of cardiac pacemaker
CPT/HCPCS: 0241U-QW; 36415; 71045-TC-FY; 80048; 80053; 80061; 82728; 83036; 83540; 83550; 83735; 83880; 84443; 84484; 85025; 85027; 85610; 93005; 93010; 93306-TC; 99285-25